=== PATIENT | female | born 1965 | race Caucasian/White ===

== ENCOUNTER 2016-09-07 13:29 | Emergency (ER) | payer SELFPAY ==
[2016-09-07 13:58] VITALS: BP 180/107
[2016-09-07] MEDS ORDERED: Lidocaine 2% Viscous Solution 15 ML Cup PO ONE (14:02)
[2016-09-07] MEDS ORDERED: Benzocaine 20% Topical Spray UD MUCMEM ONE (14:02)
--- NOTE | 2016-09-07 14:03 | EDM.PDOC ---
ED HPI GENERAL MEDICAL PROBLEM - General Chief Complaint: ENT Problem Stated Complaint: CHEEKS Time Seen by Provider: 09/07/16 13:54 - History of Present Illness INITIAL COMMENTS - FREE TEXT/NARRATIVE: HISTORY AND PHYSICAL: History of present illness: The patient is a 51-year-old female who presents with complaints of jaw swelling that started this morning after she woke up. The patient knew that she had a broken tooth in that location but he was not that swollen last evening when she went to bed. The patient has had some nausea due to the pain and swelling and has been trying to put ice on it. The patient does not have money to a dentist but she knows that she needs to see one. Is here for care and denies any chest pain shortness of breath abdominal pain or sore throat. Review of systems: As per history of present illness and below otherwise all systems reviewed and negative. Past medical history: As per history of present illness and as reviewed below otherwise noncontributory. Surgical history: As per history of present illness and as reviewed below otherwise noncontributory. Social history: No reported history of drug or alcohol abuse. Family history: As per history of present illness and as reviewed below otherwise noncontributory. Physical exam: General: Well-developed well-nourished female whose vital signs have been reviewed by me and who is nontoxic. She is visible facial swelling at the area of her left mandible is not crepitant or fluctuance HEENT: Atraumatic, normocephalic, pupils reactive, negative for conjunctival pallor or scleral icterus, mucous membranes moist, throat clear, neck supple, nontender, trachea midline. There are no teeth on the upper mouth and there are several dental caries seen on the lower teeth but there were only a few teeth at all. The tooth in question is apremolar which is fractured swollen dome at the surrounding without fluctuance and communication to the soft tissue swelling of the cheek. There is no cervical adenopathy or nuchal rigidity Lungs: Clear to auscultation, breath sounds equal bilaterally, chest nontender. Heart: S1S2, regular rate and rhythm no overt murmurs Abdomen: Soft, nondistended, nontender. NABS 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: Deferred. Rectal: Deferred. Extremities: Atraumatic, negative for cords or calf pain. Neurovascular unremarkable. Neuro: Awake, alert, oriented. Cranial nerves II through XII unremarkable. Cerebellum unremarkable. Motor and sensory unremarkable throughout. Exam nonfocal. Diagnostics: [] Therapeutics: Dental balls Impression: Dental abscess Definitive disposition and diagnosis as appropriate pending reevaluation and review of above. 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: Musculoskeletal History: Reports: None Neurological History: Reports: None Psychiatric History: Reports: None Endocrine/Metabolic History: Reports: None Hematologic History: Reports: None Immunologic History: Reports: None Oncologic (Cancer) History: Reports: None Dermatologic History: Reports: None - Infectious Disease History Infectious Disease History: Reports: Chicken pox, Rubella - Past Surgical History Head Surgeries/Procedures: Reports: None Cardiovascular Surgical History: Reports: None GI Surgical History: Reports: Appendectomy, Cholecystectomy Endocrine Surgical History: Reports: None Neurological Surgical History: Reports: None Musculoskeletal Surgical History: Reports: None Social & Family History - Family History Family Medical History: Noncontributory - Tobacco Use Smoking Status *Q: Current Every Day Smoker Years of Tobacco use: 20 Packs/Tins Daily: 1 - Caffeine Use Caffeine Use: Reports: Coffee, Soda - Recreational Drug Use Recreational Drug Use: No ED ROS GENERAL - Review of Systems Review Of Systems: ROS reveals no pertinent complaints other than HPI. ED EXAM, GENERAL - Physical Exam Exam: See Below (See dictation) Course - Vital Signs Last Recorded V/S: Last Vital Signs Temp 36.4 C 09/07/16 13:56 Pulse 84 09/07/16 13:56 Resp 16 09/07/16 13:56 BP 180/107 H 09/07/16 13:56 Pulse Ox 99 09/07/16 13:56 - Orders/Labs/Meds Orders: Active Orders 24 hr Category Date Time Status Benzocaine [Hurricaine One 20%] Med 09/07/16 14:02 Once 2 each MUCMEM ONETIME ONE Meds: Medications Discontinued Medications Generic Name Dose Route Start Last Admin Trade Name Jerry PRN Reason Stop Dose Admin Benzocaine 2 each 09/07/16 14:02 Hurricaine One 20% MUCMEM 09/07/16 14:03 ONETIME ONE Lidocaine HCl 15 ml 09/07/16 14:02 Xylocaine 2% Viscous PO 09/07/16 14:03 ONETIME ONE Departure - Departure Time of Disposition: 14:06 Disposition: Home, Self-Care 01 Condition: good, fair Clinical Impression: Dental abscess Forms: ED Department Discharge Additional Instructions: The following information is given to patients seen in the emergency department who are being discharged to home. This information is to outline your options for follow-up care. We provide all patients seen in our emergency department with a follow-up referral. The need for follow-up, as well as the timing and circumstances, are variable depending upon the specifics of your emergency department visit. If you don't have a primary care physician on staff, we will provide you with a referral. We always advise you to contact your personal physician following an emergency department visit to inform them of the circumstance of the visit and for follow-up with them and/or the need for any referrals to a consulting specialist. The emergency department will also refer you to a specialist when appropriate. This referral assures that you have the opportunity for followup care with a specialist. All of these measure are taken in an effort to provide you with optimal care, which includes your followup. Under all circumstances we always encourage you to contact your private physician who remains a resource for coordinating your care. When calling for followup care, please make the office aware that this follow-up is from your recent emergency room visit. If for any reason you are refused follow-up, please contact the [facility] emergency department at and ask to speak to the emergency department charge nurse. [facility] Primary care- Internal Medicine and Family [address] [address] These use dental balls as needed and shown by the ER staff. Take all medications as prescribed and continue with the ice on the swelling of her face. Please connect with local dentist for definitive care and treatment and also followup with primary care. Return to ER as needed and as discussed - My Orders Last 24 Hours: My Active Orders 09/07/16 14:02 Benzocaine [Hurricaine One 20%] 2 each MUCMEM ONETIME ONE - Assessment/Plan Last 24 Hours: My Active Orders 09/07/16 14:02 Benzocaine [Hurricaine One 20%] 2 each MUCMEM ONETIME ONE
== END 2016-09-07 14:19 | disposition home or self-care (01) ==
LOC: MW.ED 13:29
DX: K04.7 Periapical abscess without sinus (principal); F17.210 Nicotine dependence, cigarettes, uncomplicated; Z88.5 Allergy status to narcotic agent; Z79.899 Other long term (current) drug therapy; Z90.49 Acquired absence of other specified parts of digestive tract; Z90.89 Acquired absence of other organs
CPT/HCPCS: 99282; A9270; 99283

== ENCOUNTER 2016-10-01 15:10 | Emergency (ER) | payer SELFPAY ==
[2016-10-01] MEDS ORDERED: Sodium Chloride 0.9% 10 ML Syringe FLUSH PRN (15:20)
[2016-10-01] MEDS ORDERED: Sodium Chloride 0.9% 2.5 ML Syringe FLUSH PRN (15:20)
[2016-10-01] MEDS ORDERED: Sodium Chloride 0.9% 1,000 ML IV ONE (15:21)
[2016-10-01] MEDS ORDERED: Adenosine 6 MG/2 ML SDV ONE (15:25)
--- NOTE | 2016-10-01 15:35 | EDM.PDOC ---
ED HISTORY OF PRESENT ILLNESS - General Chief Complaint: Cardiovascular Problem Stated Complaint: RACING HEART Time Seen by Provider: 10/01/16 15:17 - History of Present Illness INITIAL COMMENTS - FREE TEXT/NARRATIVE: HISTORY AND PHYSICAL: History of present illness: The patient is a 51-year-old female with a known history of SVT throughout her life who takes propranolol and has had multiple episodes of SVT which she usually can get herself out of by driving or in a car getting nauseated from motion sickness and vomiting. She has had 4 prior times when she had to come to the ER and get converted with adenosine the last being here August 23. At that time she was drinking a lot of Diet Coke and tea and she has cut way back according to her history today. The patient states she was at [facility] and the lights there made her go into this rhythm and she has been driving around or sitting trying to convert herself for the last 2 hours. Patient arrived here and was writhing around on the bed diaphoretic and nauseated. The patient did state that she had some dry heaves in the car but she was unable to convert herself with that. The patient states she does not have a clinic physician and has not seen a advertising analyst for this problem because she doesn't have the money or insurance. Patient states that she is having chest discomfort due to the high heart rate in the nausea as well as shortness of breath all of which are her typical symptoms. She had no preceding symptoms of fever chills vomiting diarrhea abdominal pain chest pain or shortness of breath prior to going to [facility] Review of systems: As per history of present illness and below otherwise all systems reviewed and negative. Past medical history: As per history of present illness and as reviewed below otherwise noncontributory. Surgical history: As per history of present illness and as reviewed below otherwise noncontributory. Social history: No reported history of drug or alcohol abuse. Family history: As per history of present illness and as reviewed below otherwise noncontributory. Physical exam: General: Well-developed overweight female who is diaphoretic and writhing about the bed eating supper he clearly. I initially saw her in the triage office and then quickly moved her to the ER Main room HEENT: Atraumatic, normocephalic, pupils reactive, negative for conjunctival pallor or scleral icterus, mucous membranes moist, throat clear, neck supple, nontender, trachea midline. Lungs: Clear to auscultation, breath sounds equal bilaterally, chest nontender. Heart: S1S2, very rapid rhythm consistent with her her crit on the monitor and EKG, difficult to assess for murmurs due to the rapid rate Abdomen: Soft, nondistended, nontender. Negative for masses or hepatosplenomegaly. Negative for costovertebral tenderness. Skin: Slightly pale moist no evidence of any rashes or lesions 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: Deferred. Rectal: Deferred. Extremities: Atraumatic, negative for cords or calf pain. Neurovascular unremarkable. No pedal edema or leg asymmetry Neuro: Awake, alert, oriented. Cranial nerves II through XII unremarkable. Cerebellum unremarkable. Motor and sensory unremarkable throughout. Exam nonfocal. Diagnostics: EKG x2, CBC CMP troponin Patient had a TSH performed on August 23 of this year that was negative and also her LFTs were slightly elevated then. Therapeutics: IV O2 monitor IV fluids and adenosine 12 mg The patient is very specific that adenosine 6 mg does not work so she is requesting 12 mg. I administered that with a delayed pause and conversion without complication. Patient tolerated this well and her color immediately improved and she is resting comfortably. We will repeat an EKG and monitor her blood work. I strongly advised her that she does need to get primary care and followup with cardiology in order to adjust her medications and/or discuss ablation. 1620: Patient is continuing to maintain her normal rate and other vitals are also stable. Patient is aware of all testing results including the mildly elevated glucose and liver function tests which were similarly elevated on her last visit here in August. I advised her that she does need to follow up with primary care to address these issues and cardiology to address her SVT and we will also give her resources for social service assistant to help her connect to get health care coverage. Patient states understanding but looks somewhat annoyed with my conversation and distracted. Again advised her about caffeine use and reasons to return to the ED Impression: SVT with history of same stable Definitive disposition and diagnosis as appropriate pending reevaluation and review of above. 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: Musculoskeletal History: Reports: None Neurological History: Reports: None Psychiatric History: Reports: None Endocrine/Metabolic History: Reports: None Hematologic History: Reports: None Immunologic History: Reports: None Oncologic (Cancer) History: Reports: None Dermatologic History: Reports: None - Infectious Disease History Infectious Disease History: Reports: Chicken pox, Rubella - Past Surgical History Head Surgeries/Procedures: Reports: None Cardiovascular Surgical History: Reports: None GI Surgical History: Reports: Appendectomy, Cholecystectomy Endocrine Surgical History: Reports: None Neurological Surgical History: Reports: None Musculoskeletal Surgical History: Reports: None Social & Family History - Family History Family Medical History: Noncontributory - Tobacco Use Smoking Status *Q: Current Every Day Smoker Years of Tobacco use: 20 Packs/Tins Daily: 1 - Caffeine Use Caffeine Use: Reports: Coffee, Soda - Recreational Drug Use Recreational Drug Use: No ED ROS GENERAL - Review of Systems Review Of Systems: ROS reveals no pertinent complaints other than HPI. ED EXAM, GENERAL - Physical Exam Exam: See Below (see dictation) Course - Vital Signs Last Recorded V/S: Last Vital Signs Temp 36.7 C 10/01/16 16:16 Pulse 80 10/01/16 16:16 Resp 16 10/01/16 16:16 BP 120/70 10/01/16 16:16 Pulse Ox 99 10/01/16 16:16 - Orders/Labs/Meds Orders: Active Orders 24 hr Category Date Time Status Cardiac Monitoring [RC] . DIRECTED Care 10/01/16 15:20 Active EKG Documentation Completion [RC] STAT Care 10/01/16 15:20 Active EKG Documentation Completion [RC] STAT Care 10/01/16 15:30 Active Oxygen Therapy, ED [RC] ASDIRECTED Care 10/01/16 15:20 Active Pulse Oximetry [RC] ASDIRECTED Care 10/01/16 15:20 Active Sodium Chloride 0.9% [Normal Saline] 1,000 ml Med 10/01/16 15:21 Active IV STAT Sodium Chloride 0.9% [Saline Flush] Med 10/01/16 15:20 Active 10 ml FLUSH ASDIRECTED PRN Sodium Chloride 0.9% [Saline Flush] Med 10/01/16 15:20 Active 2.5 ml FLUSH ASDIRECTED PRN Saline Lock Insert [OM.PC] Stat Oth 10/01/16 15:20 Ordered Medication Orders Sodium Chloride (Normal Saline) 1,000 mls @ 999 mls/hr IV STAT ONE Stop: 10/01/16 16:21 Last Admin: 10/01/16 15:33 Dose: 999 mls/hr Sodium Chloride (Saline Flush) 10 ml FLUSH ASDIRECTED PRN PRN Reason: Keep Vein Open Last Admin: 10/01/16 15:32 Dose: 10 ml Sodium Chloride (Saline Flush) 2.5 ml FLUSH ASDIRECTED PRN PRN Reason: Keep Vein Open Last Admin: 10/01/16 15:32 Dose: 2.5 ml Labs: Laboratory Tests 10/01/16 10/01/16 10/01/16 Range/Units 15:30 15:30 15:30 WBC 10.91 (4.0-11.0) K/uL RBC 4.82 (4.30-5.90) M/uL Hgb 14.4 (12.0-16.0) g/dL Hct 42.1 (36.0-46.0) % MCV 87.3 (80.0-98.0) fL MCH 29.9 (27.0-32.0) pg MCHC 34.2 (31.0-37.0) g/dL RDW Std Deviation 45.5 (28.0-62.0) fl RDW Coeff of Itz 14 (11.0-15.0) % Plt Count 376 (150-400) K/uL MPV 10.30 (7.40-12.00) fL Neut % (Auto) 59.0 (48.0-80.0) % Lymph % (Auto) 31.9 (16.0-40.0) % [place] % (Auto) 5.8 (0.0-15.0) % Eos % (Auto) 2.8 (0.0-7.0) % Baso % (Auto) 0.5 (0.0-1.5) % Neut # (Auto) 6.4 H (1.4-5.7) K/uL Lymph # (Auto) 3.5 H (0.6-2.4) K/uL [place] # (Auto) 0.6 (0.0-0.8) K/uL Eos # (Auto) 0.3 (0.0-0.7) K/uL Baso # (Auto) 0.1 (0.0-0.1) K/uL Nucleated RBC % 0.0 /100WBC Nucleated RBCs # 0 K/uL Sodium 138 (136-146) mmol/L Potassium 4.2 (3.5-5.1) mmol/L Chloride 108 (98-110) mmol/L Carbon Dioxide 15 L (21-31) mmol/L BUN 22 (6.0-23.0) mg/dL Creatinine 1.0 (0.6-1.5) mg/dL Est Cr Clr Drug Dosing 63.83 mL/min Estimated GFR (MDRD) 58.2 ml/min Glucose 210 H (60-110) mg/dL Calcium 9.1 (8.8-10.8) mg/dL Total Bilirubin 0.5 (0.1-1.5) mg/dL AST 43 H (5-40) IU/L ALT 83 H (8-54) IU/L Alkaline Phosphatase 202 H (40-150) Troponin I < 0.10 (0.0-0.29) NG/ML Total Protein 7.1 (6.0-8.0) g/dL Albumin 3.9 (3.5-5.0) g/dL Globulin 3.2 (2.0-3.5) g/dL Albumin/Globulin Ratio 1.2 L (1.3-2.8) Meds: Medications Generic Name Dose Route Start Last Admin Trade Name Freq PRN Reason Stop Dose Admin Sodium Chloride 1,000 mls @ 999 mls/hr 10/01/16 15:21 10/01/16 15:33 Normal Saline IV 10/01/16 16:21 999 mls/hr STAT ONE Administration Sodium Chloride 10 ml 10/01/16 15:20 10/01/16 15:32 Saline Flush FLUSH 10 ml ASDIRECTED PRN Administration Keep Vein Open Sodium Chloride 2.5 ml 10/01/16 15:20 10/01/16 15:32 Saline Flush FLUSH 2.5 ml ASDIRECTED PRN Administration Keep Vein Open Discontinued Medications Generic Name Dose Route Start Last Admin Trade Name Frealfonzo PRN Reason Stop Dose Admin Adenosine 12 mg 10/01/16 15:20 10/01/16 15:33 Adenoscan IVPUSH 10/01/16 15:21 Not Given ONETIME ONE Adenosine Confirm 10/01/16 15:25 10/01/16 15:31 Adenocard Administered 10/01/16 15:26 12 mg Dose Administration 12 mg .ROUTE .STK-MED ONE Departure - Departure Time of Disposition: 16:23 Disposition: Home, Self-Care 01 Condition: good Clinical Impression: Paroxysmal supraventricular tachycardia Instructions: Paroxysmal Supraventricular Tachycardia, Cgup-hl-Domy Referrals: PCP,None [Primary Care Provider] - Forms: ED Department Discharge Additional Instructions: The following information is given to patients seen in the emergency department who are being discharged to home. This information is to outline your options for follow-up care. We provide all patients seen in our emergency department with a follow-up referral. The need for follow-up, as well as the timing and circumstances, are variable depending upon the specifics of your emergency department visit. If you don't have a primary care physician on staff, we will provide you with a referral. We always advise you to contact your personal physician following an emergency department visit to inform them of the circumstance of the visit and for follow-up with them and/or the need for any referrals to a consulting specialist. The emergency department will also refer you to a specialist when appropriate. This referral assures that you have the opportunity for followup care with a specialist. All of these measure are taken in an effort to provide you with optimal care, which includes your followup. Under all circumstances we always encourage you to contact your private physician who remains a resource for coordinating your care. When calling for followup care, please make the office aware that this follow-up is from your recent emergency room visit. If for any reason you are refused follow-up, please contact the [facility] emergency department at and ask to speak to the emergency department charge nurse. [facility] Primary care- [place] [address] Please contact our clinic on Monday to get an appointment sometime this week for further evaluation and care of your elevated blood glucose level and liver function tests as we discussed. Please avoid sweets and sugar he foods and drinks, avoid alcohol and Tylenol products and avoid caffeine. Please return to ER as needed and as discussed. Was to connect with primary care and they can then refer you to her advertising analyst for further care and management of your SVT - My Orders Last 24 Hours: My Active Orders 10/01/16 15:20 Cardiac Monitoring [RC] . DIRECTED EKG Documentation Completion [RC] STAT Oxygen Therapy, ED [RC] ASDIRECTED Pulse Oximetry [RC] ASDIRECTED Sodium Chloride 0.9% [Saline Flush] 10 ml FLUSH ASDIRECTED PRN Sodium Chloride 0.9% [Saline Flush] 2.5 ml FLUSH ASDIRECTED PRN Saline Lock Insert [OM.PC] Stat 10/01/16 15:21 Sodium Chloride 0.9% [Normal Saline] 1,000 ml IV STAT 10/01/16 15:30 EKG Documentation Completion [RC] STAT - Assessment/Plan Last 24 Hours: My Active Orders 10/01/16 15:20 Cardiac Monitoring [RC] . DIRECTED EKG Documentation Completion [RC] STAT Oxygen Therapy, ED [RC] ASDIRECTED Pulse Oximetry [RC] ASDIRECTED Sodium Chloride 0.9% [Saline Flush] 10 ml FLUSH ASDIRECTED PRN Sodium Chloride 0.9% [Saline Flush] 2.5 ml FLUSH ASDIRECTED PRN Saline Lock Insert [OM.PC] Stat 10/01/16 15:21 Sodium Chloride 0.9% [Normal Saline] 1,000 ml IV STAT 10/01/16 15:30 EKG Documentation Completion [RC] STAT
[2016-10-01 16:32] VITALS: BP 121/70
== END 2016-10-01 16:33 | disposition home or self-care (01) ==
LOC: MW.ED 15:10
DX: I47.1 Supraventricular tachycardia (principal); F17.210 Nicotine dependence, cigarettes, uncomplicated; Z90.49 Acquired absence of other specified parts of digestive tract; Z79.899 Other long term (current) drug therapy; Z88.5 Allergy status to narcotic agent
CPT/HCPCS: 36415; 80053; 84484; 85025; 93005; 96374; 99285; J0153; J7040; 99284

== ENCOUNTER 2016-10-22 18:37 | Emergency (ER) | payer SELFPAY ==
[2016-10-22] MEDS ORDERED: Sodium Chloride 0.9% 2.5 ML Syringe FLUSH PRN (19:04)
[2016-10-22] MEDS ORDERED: Sodium Chloride 0.9% 10 ML Syringe FLUSH PRN (19:04)
--- NOTE | 2016-10-22 19:07 | EDM.PDOC ---
ED HISTORY OF PRESENT ILLNESS - General Chief Complaint: Cardiovascular Problem Stated Complaint: CHEST PAIN Time Seen by Provider: 10/22/16 19:03 - History of Present Illness INITIAL COMMENTS - FREE TEXT/NARRATIVE: HISTORY AND PHYSICAL: History of present illness: The patient is a 51-year-old female with a known history of SVT who is presented here multiple times requiring conversion and states that she went to the rhythm approximately one hour prior to coming to the ER. On arrival here for her it was in the 200s typical for her and during the IV start and evaluation she had an episode of vomiting and self converted she's currently in sinus rhythm with a rate of 90s. Patient states she has a followup on Monday with her primary care since that she can't referral to cardiology and states that she smokes cigarettes but no drugs. Patient currently denies any chest pain shortness of breath but has had a cough with some phlegm. Patient denies any fevers or chills vomiting or diarrhea but says that she has had intermittent nausea and felt like she wanted to vomit over the last 24 hours. Patient has been worked up multiple times in the past and this is a typical presentation for her. Review of systems: As per history of present illness and below otherwise all systems reviewed and negative. Past medical history: As per history of present illness and as reviewed below otherwise noncontributory. Surgical history: As per history of present illness and as reviewed below otherwise noncontributory. Social history: No reported history of drug or alcohol abuse. Family history: As per history of present illness and as reviewed below otherwise noncontributory. Physical exam: General: Well-developed overweight female who is nontoxic speaking clearly and easily in the ED and is in no distress on my evaluation. HEENT: Atraumatic, normocephalic, pupils reactive, negative for conjunctival pallor or scleral icterus, mucous membranes moist, throat clear, neck supple, nontender, trachea midline. Lungs: Clear to auscultation her work or breathing or sensory muscle use wheezing or stridor, breath sounds equal bilaterally, chest nontender. Heart: S1S2, regular, negative for clicks, rubs, or JVD. Abdomen: Soft, nondistended, nontender. Negative for masses or hepatosplenomegaly. Negative for costovertebral tenderness. Pelvis: Stable nontender. 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: Deferred. Rectal: Deferred. Extremities: Atraumatic, negative for cords or calf pain. Neurovascular unremarkable. No pedal edema Neuro: Awake, alert, oriented. Cranial nerves II through XII unremarkable. Cerebellum unremarkable. Motor and sensory unremarkable throughout. Exam nonfocal. Diagnostics: CBC CMP EKG chest x-ray troponin Therapeutics: IV O2 monitor Zofran when necessary IV fluids Impression: Recurrent SVT with history of same self converted Definitive disposition and diagnosis as appropriate pending reevaluation and review of above. 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: Musculoskeletal History: Reports: None Neurological History: Reports: None Psychiatric History: Reports: None Endocrine/Metabolic History: Reports: None Hematologic History: Reports: None Immunologic History: Reports: None Oncologic (Cancer) History: Reports: None Dermatologic History: Reports: None - Infectious Disease History Infectious Disease History: Reports: Chicken pox, Rubella - Past Surgical History Head Surgeries/Procedures: Reports: None Cardiovascular Surgical History: Reports: None GI Surgical History: Reports: Appendectomy, Cholecystectomy Endocrine Surgical History: Reports: None Neurological Surgical History: Reports: None Musculoskeletal Surgical History: Reports: None Social & Family History - Family History Family Medical History: Noncontributory - Tobacco Use Smoking Status *Q: Current Every Day Smoker Years of Tobacco use: 15 Packs/Tins Daily: 1 Second Hand Smoke Exposure: No - Caffeine Use Caffeine Use: Reports: Coffee, Soda - Recreational Drug Use Recreational Drug Use: No ED ROS GENERAL - Review of Systems Review Of Systems: ROS reveals no pertinent complaints other than HPI. ED EXAM, GENERAL - Physical Exam Exam: See Below (See dictation) Course - Vital Signs Last Recorded V/S: Last Vital Signs Temp 36.3 C 10/22/16 18:37 Pulse 208 H 10/22/16 18:37 Resp 18 10/22/16 18:37 BP 138/108 H 10/22/16 18:37 Pulse Ox 97 10/22/16 19:04 - Orders/Labs/Meds Orders: Active Orders 24 hr Category Date Time Status Cardiac Monitoring [RC] . DIRECTED Care 10/22/16 19:04 Active EKG Documentation Completion [RC] STAT Care 10/22/16 19:04 Active Oxygen Therapy, ED [RC] ASDIRECTED Care 10/22/16 19:04 Active Pulse Oximetry [RC] ASDIRECTED Care 10/22/16 19:04 Active Chest 1V Frontal [CR] Stat Exams 10/22/16 19:04 Taken Sodium Chloride 0.9% [Normal Saline] 1,000 ml Med 10/22/16 19:53 Active IV STAT Sodium Chloride 0.9% [Saline Flush] Med 10/22/16 19:04 Active 10 ml FLUSH ASDIRECTED PRN Sodium Chloride 0.9% [Saline Flush] Med 10/22/16 19:04 Active 2.5 ml FLUSH ASDIRECTED PRN Saline Lock Insert [OM.PC] Stat Oth 10/22/16 19:04 Ordered Medication Orders Sodium Chloride (Normal Saline) 1,000 mls @ 999 mls/hr IV STAT ONE Stop: 10/22/16 20:53 Last Admin: 10/22/16 19:56 Dose: 999 mls/hr Sodium Chloride (Saline Flush) 10 ml FLUSH ASDIRECTED PRN PRN Reason: Keep Vein Open Sodium Chloride (Saline Flush) 2.5 ml FLUSH ASDIRECTED PRN PRN Reason: Keep Vein Open Labs: Laboratory Tests 10/22/16 10/22/16 10/22/16 Range/Units 19:15 19:15 19:15 WBC 11.13 H (4.0-11.0) K/uL RBC 4.95 (4.30-5.90) M/uL Hgb 15.0 (12.0-16.0) g/dL Hct 43.7 (36.0-46.0) % MCV 88.3 (80.0-98.0) fL MCH 30.3 (27.0-32.0) pg MCHC 34.3 (31.0-37.0) g/dL RDW Std Deviation 45.5 (28.0-62.0) fl RDW Coeff of Itz 14 (11.0-15.0) % Plt Count 308 (150-400) K/uL MPV 10.40 (7.40-12.00) fL Neut % (Auto) 84.6 H (48.0-80.0) % Lymph % (Auto) 11.1 L (16.0-40.0) % [place] % (Auto) 3.8 (0.0-15.0) % Eos % (Auto) 0.3 (0.0-7.0) % Baso % (Auto) 0.2 (0.0-1.5) % Neut # (Auto) 9.4 H (1.4-5.7) K/uL Lymph # (Auto) 1.2 (0.6-2.4) K/uL [place] # (Auto) 0.4 (0.0-0.8) K/uL Eos # (Auto) 0.0 (0.0-0.7) K/uL Baso # (Auto) 0.0 (0.0-0.1) K/uL Nucleated RBC % 0.0 /100WBC Nucleated RBCs # 0 K/uL Sodium 138 (136-146) mmol/L Potassium 4.4 (3.5-5.1) mmol/L Chloride 106 (98-110) mmol/L Carbon Dioxide 21 (21-31) mmol/L BUN 25 H (6.0-23.0) mg/dL Creatinine 1.0 (0.6-1.5) mg/dL Est Cr Clr Drug Dosing 63.83 mL/min Estimated GFR (MDRD) 58.2 ml/min Glucose 176 H (60-110) mg/dL Calcium 9.7 (8.8-10.8) mg/dL Total Bilirubin 0.8 (0.1-1.5) mg/dL AST 37 (5-40) IU/L ALT 49 (8-54) IU/L Alkaline Phosphatase 140 (40-150) Troponin I < 0.10 (0.0-0.29) NG/ML Total Protein 7.4 (6.0-8.0) g/dL Albumin 4.1 (3.5-5.0) g/dL Globulin 3.3 (2.0-3.5) g/dL Albumin/Globulin Ratio 1.2 L (1.3-2.8) Meds: Medications Generic Name Dose Route Start Last Admin Trade Name Freq PRN Reason Stop Dose Admin Sodium Chloride 1,000 mls @ 999 mls/hr 10/22/16 19:53 10/22/16 19:56 Normal Saline IV 10/22/16 20:53 999 mls/hr STAT ONE Administration Sodium Chloride 10 ml 10/22/16 19:04 Saline Flush FLUSH ASDIRECTED PRN Keep Vein Open Sodium Chloride 2.5 ml 10/22/16 19:04 Saline Flush FLUSH ASDIRECTED PRN Keep Vein Open Departure - Departure Time of Disposition: 20:00 Disposition: Home, Self-Care 01 Condition: good Clinical Impression: PSVT (paroxysmal supraventricular tachycardia) Forms: ED Department Discharge Additional Instructions: The following information is given to patients seen in the emergency department who are being discharged to home. This information is to outline your options for follow-up care. We provide all patients seen in our emergency department with a follow-up referral. The need for follow-up, as well as the timing and circumstances, are variable depending upon the specifics of your emergency department visit. If you don't have a primary care physician on staff, we will provide you with a referral. We always advise you to contact your personal physician following an emergency department visit to inform them of the circumstance of the visit and for follow-up with them and/or the need for any referrals to a consulting specialist. The emergency department will also refer you to a specialist when appropriate. This referral assures that you have the opportunity for followup care with a specialist. All of these measure are taken in an effort to provide you with optimal care, which includes your followup. Under all circumstances we always encourage you to contact your private physician who remains a resource for coordinating your care. When calling for followup care, please make the office aware that this follow-up is from your recent emergency room visit. If for any reason you are refused follow-up, please contact the [facility] emergency department at and ask to speak to the emergency department charge nurse. [facility] Primary care- [place] [address] Please push hydration and avoid caffeinated products. Please keep your appointment on with primary care to further evaluate this recurrent problem and return here as needed and as discussed. - My Orders Last 24 Hours: My Active Orders 10/22/16 19:04 Cardiac Monitoring [RC] . DIRECTED EKG Documentation Completion [RC] STAT Oxygen Therapy, ED [RC] ASDIRECTED Pulse Oximetry [RC] ASDIRECTED Chest 1V Frontal [CR] Stat Sodium Chloride 0.9% [Saline Flush] 10 ml FLUSH ASDIRECTED PRN Sodium Chloride 0.9% [Saline Flush] 2.5 ml FLUSH ASDIRECTED PRN Saline Lock Insert [OM.PC] Stat 10/22/16 19:53 Sodium Chloride 0.9% [Normal Saline] 1,000 ml IV STAT - Assessment/Plan Last 24 Hours: My Active Orders 10/22/16 19:04 Cardiac Monitoring [RC] . DIRECTED EKG Documentation Completion [RC] STAT Oxygen Therapy, ED [RC] ASDIRECTED Pulse Oximetry [RC] ASDIRECTED Chest 1V Frontal [CR] Stat Sodium Chloride 0.9% [Saline Flush] 10 ml FLUSH ASDIRECTED PRN Sodium Chloride 0.9% [Saline Flush] 2.5 ml FLUSH ASDIRECTED PRN Saline Lock Insert [OM.PC] Stat 10/22/16 19:53 Sodium Chloride 0.9% [Normal Saline] 1,000 ml IV STAT
[2016-10-22] MEDS ORDERED: Sodium Chloride 0.9% 1,000 ML IV ONE (19:53)
[2016-10-23 02:56] VITALS: BP 145/86
--- NOTE | 2016-10-24 10:50 | CR ---
EXAM DATE: 10/22/16 PATIENT'S AGE: 51 Patient: MIKE COMBS Facility: [place], [place] Site . Site : 1965 Study: XRay Chest [id number] 7:41:10 PM Ordering Physician: Jess Bland Final Report: CHEST 1 VIEW AP INDICATION: Short of breath. COMPARISON: 01/07/2016. IMPRESSION: Stable heart size and vascular pattern. Lungs are clear of new focal opacities. No pneumothorax or pleural abnormality. Dictated by Luis Antonio Fox MD @ Oct 22 2016 7:44PM (Electronic Signature) Report Signed by Proxy and Original Signed Document filed in the Medical Record. MTDD
== END 2016-10-22 21:18 | disposition home or self-care (01) ==
LOC: MW.ED 18:37
DX: I47.1 Supraventricular tachycardia (principal); F17.210 Nicotine dependence, cigarettes, uncomplicated; Z90.49 Acquired absence of other specified parts of digestive tract; Z88.5 Allergy status to narcotic agent; Z79.899 Other long term (current) drug therapy
CPT/HCPCS: 36415; 71010; 80053; 84484; 85025; 93005; 96360; 99285; J7040; 99284

== ENCOUNTER 2016-11-01 21:55 | Emergency (ER) | payer SELFPAY ==
--- NOTE | 2016-11-01 22:32 | EDM.PDOC ---
ED HISTORY OF PRESENT ILLNESS - General Chief Complaint: Cardiovascular Problem Stated Complaint: HEART PALPITATIONS Time Seen by Provider: 11/01/16 22:31 Source of Information: Reports: Patient - History of Present Illness INITIAL COMMENTS - FREE TEXT/NARRATIVE: About 1-1/2 hours ago she developed symptoms of palpitations. She states it is her "SVT". She states she has a little chest soreness. No vomiting. No fever. No abdominal pain. She's had a cough for over a week productive of sputum. She smokes cigarettes. She is not using the [facility] drug periods she does not use our call. She does not use any weight loss or cold medicines. She states she takes medicine to prevent SVT. She states that she has had recurrent SVT since childhood. 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: Musculoskeletal History: Reports: None Neurological History: Reports: None Psychiatric History: Reports: None Endocrine/Metabolic History: Reports: None Hematologic History: Reports: None Immunologic History: Reports: None Oncologic (Cancer) History: Reports: None Dermatologic History: Reports: None - Infectious Disease History Infectious Disease History: Reports: Chicken pox, Rubella - Past Surgical History Head Surgeries/Procedures: Reports: None Cardiovascular Surgical History: Reports: None GI Surgical History: Reports: Appendectomy, Cholecystectomy Endocrine Surgical History: Reports: None Neurological Surgical History: Reports: None Musculoskeletal Surgical History: Reports: None Social & Family History - Family History Family Medical History: Noncontributory - Tobacco Use Smoking Status *Q: Current Every Day Smoker Years of Tobacco use: 15 Packs/Tins Daily: 1 Second Hand Smoke Exposure: No - Caffeine Use Caffeine Use: Reports: Coffee, Soda - Recreational Drug Use Recreational Drug Use: No ED ROS GENERAL - Review of Systems Review Of Systems: ROS reveals no pertinent complaints other than HPI. ED EXAM, GENERAL - Physical Exam Exam: See Below Free Text/Narrative:: She is alert. She is cooperative and pleasant. No focal motor deficit noted lungs clear to auscultation heart sounds distant and rapid heart monitor shows narrow complex tachycardia rate about 200. Abdomen is nontender. 12-lead electrocardiogram shows narrow complex tachycardia with a heart rate just over 200 she was treated with Entocort 6 mg IV. She subsequently converted to sinus rhythm. He feels much better after conversion Course - Vital Signs Last Recorded V/S: Last Vital Signs Temp 96.7 F 11/01/16 22:00 Pulse 214 H 11/01/16 22:00 Resp 19 11/01/16 22:00 BP 139/74 11/01/16 22:00 Pulse Ox 95 11/01/16 22:00 - Orders/Labs/Meds Orders: Active Orders 24 hr Category Date Time Status EKG Documentation Completion [RC] STAT Care 11/01/16 22:29 Active EKG Documentation Completion [RC] STAT Care 11/01/16 22:38 Active EKG Documentation Completion [RC] STAT Care 11/01/16 22:44 Active Metoprolol Succinate [Toprol XL] Med 11/01/16 23:34 Once 25 mg PO ONETIME ONE Labs: Laboratory Tests 11/01/16 11/01/16 11/01/16 Range/Units 22:25 22:25 22:25 WBC 10.60 (4.0-11.0) K/uL RBC 5.02 (4.30-5.90) M/uL Hgb 15.2 (12.0-16.0) g/dL Hct 44.2 (36.0-46.0) % MCV 88.0 (80.0-98.0) fL MCH 30.3 (27.0-32.0) pg MCHC 34.4 (31.0-37.0) g/dL RDW Std Deviation 44.6 (28.0-62.0) fl RDW Coeff of Itz 14 (11.0-15.0) % Plt Count 372 (150-400) K/uL MPV 10.20 (7.40-12.00) fL Neut % (Auto) 58.9 (48.0-80.0) % Lymph % (Auto) 30.5 (16.0-40.0) % Gem % (Auto) 6.0 (0.0-15.0) % Eos % (Auto) 4.1 (0.0-7.0) % Baso % (Auto) 0.5 (0.0-1.5) % Neut # (Auto) 6.3 H (1.4-5.7) K/uL Lymph # (Auto) 3.2 H (0.6-2.4) K/uL Gem # (Auto) 0.6 (0.0-0.8) K/uL Eos # (Auto) 0.4 (0.0-0.7) K/uL Baso # (Auto) 0.1 (0.0-0.1) K/uL Nucleated RBC % 0.0 /100WBC Nucleated RBCs # 0 K/uL Sodium 141 (136-146) mmol/L Potassium 4.0 (3.5-5.1) mmol/L Chloride 112 H (98-110) mmol/L Carbon Dioxide 18 L (21-31) mmol/L BUN 14 (6.0-23.0) mg/dL Creatinine 0.8 (0.6-1.5) mg/dL Est Cr Clr Drug Dosing 82.98 mL/min Estimated GFR (MDRD) > 60.0 ml/min Glucose 163 H (60-110) mg/dL Calcium 8.8 (8.8-10.8) mg/dL Total Bilirubin 0.3 (0.1-1.5) mg/dL AST 52 H (5-40) IU/L ALT 126 H (8-54) IU/L Alkaline Phosphatase 186 H (40-150) Troponin I < 0.10 (0.0-0.29) NG/ML Total Protein 7.2 (6.0-8.0) g/dL Albumin 3.8 (3.5-5.0) g/dL Globulin 3.4 (2.0-3.5) g/dL Albumin/Globulin Ratio 1.1 L (1.3-2.8) Free T4 0.83 (0.7-1.48) ng/dL TSH 3rd Generation 4.74 (0.47-5.0) uIU/mL Meds: Medications Discontinued Medications Generic Name Dose Route Start Last Admin Trade Name Freq PRN Reason Stop Dose Admin Adenosine Confirm 11/01/16 22:19 11/01/16 22:41 Adenocard Administered 11/01/16 22:20 6 mg Dose Administration 18 mg .ROUTE .STK-MED ONE Adenosine 6 mg 11/01/16 22:34 11/01/16 22:25 Adenoscan IVPUSH 11/01/16 22:35 6 mg ONETIME ONE Administration - Re-Assessments/Exams Free Text/Narrative Re-Assessment/Exam: 11/01/16 23:35 She went to sinusrhythm after adenocard 6 mg IV. As she only takes metoprolol 25 mg daily, will increase to 25 mg po bid Alessandro Colunga MD Departure - Departure Time of Disposition: 23:37 Disposition: Home, Self-Care 01 Clinical Impression: PSVT (paroxysmal supraventricular tachycardia) Forms: ED Department Discharge Additional Instructions: follow up with your physician on increase your metoprolol to 25 mg two times per day be sure to discuss her elevated liver blood tests with her doctor at follow up . - My Orders Last 24 Hours: My Active Orders 11/01/16 22:29 EKG Documentation Completion [RC] STAT 11/01/16 22:38 EKG Documentation Completion [RC] STAT 11/01/16 22:44 EKG Documentation Completion [RC] STAT 11/01/16 23:34 Metoprolol Succinate [Toprol XL] 25 mg PO ONETIME ONE - Assessment/Plan Last 24 Hours: My Active Orders 11/01/16 22:29 EKG Documentation Completion [RC] STAT 11/01/16 22:38 EKG Documentation Completion [RC] STAT 11/01/16 22:44 EKG Documentation Completion [RC] STAT 11/01/16 23:34 Metoprolol Succinate [Toprol XL] 25 mg PO ONETIME ONE
[2016-11-01] MEDS: Adenosine 6 MG/2 ML SDV ONE ×2 (22:40→22:41)
[2016-11-01 23:03] LABS: CHLORIDE,CL 112 mmol/L (98-110); SODIUM,NA 141 mmol/L (136-146)
[2016-11-01] MEDS ORDERED: Metoprolol Succinate 25 MG Tab.ER PO ONE (23:34)
[2016-11-01 23:52] VITALS: BP 122/75
== END 2016-11-01 23:51 | disposition home or self-care (01) ==
LOC: MW.ED 21:55
DX: I47.1 Supraventricular tachycardia (principal); F17.210 Nicotine dependence, cigarettes, uncomplicated; Z90.49 Acquired absence of other specified parts of digestive tract; Z79.899 Other long term (current) drug therapy; Z88.5 Allergy status to narcotic agent
CPT/HCPCS: 80053; 84439; 84443; 84484; 85025; 96374; 99285; A9270; J0153; 93005; 99284

== ENCOUNTER 2016-11-15 19:09 | Emergency (ER) | payer SELFPAY ==
[2016-11-15] MEDS ORDERED: Adenosine 6 MG/2 ML SDV ONE ×2 (19:15→19:19)
[2016-11-15] MEDS ORDERED: Sodium Chloride 0.9% 2.5 ML Syringe FLUSH PRN (19:19)
[2016-11-15] MEDS ORDERED: Sodium Chloride 0.9% 10 ML Syringe FLUSH PRN (19:19)
--- NOTE | 2016-11-15 19:20 | EDM.PDOC ---
ED HPI GENERAL MEDICAL PROBLEM - General Stated Complaint: CHEST PAIN Time Seen by Provider: 11/15/16 19:16 - History of Present Illness INITIAL COMMENTS - FREE TEXT/NARRATIVE: HISTORY AND PHYSICAL: History of present illness: The patient is a 51-year-old female with a long-standing history of SVT was been seen here multiple times in the ED but has not been able to followup with cardiology and represents with the same symptoms. Patient has been seen here approximately twice a month for this with conversion with adenosine and occasionally she will convert with IV start or with vomiting. Patient says that she did not note any new triggers and has been trying to cut back on her tobacco use and her caffeine use. She has no complaints of chest pain just the discomfort with the tachycardia she has had no recent fever chills shortness of breath cough vomiting or diarrhea. She states she is perimenopausal. Review of systems: As per history of present illness and below otherwise all systems reviewed and negative. Past medical history: As per history of present illness and as reviewed below otherwise noncontributory. Surgical history: As per history of present illness and as reviewed below otherwise noncontributory. Social history: No reported history of drug or alcohol abuse. Family history: As per history of present illness and as reviewed below otherwise noncontributory. Physical exam: General: Well-developed overweight female who is nontoxic and speaking clearly and easily in ED. She is diaphoretic in the ER HEENT: Atraumatic, normocephalic, negative for conjunctival pallor or scleral icterus, mucous membranes moist, throat clear, neck supple, nontender, trachea midline. Lungs: Clear to auscultation, breath sounds equal bilaterally, chest nontender. Work of breathing or sensory muscle use Heart: S1S2, regular rhythm and very tachycardic rate, negative for clicks, rubs , or JVD. Abdomen: Soft, nondistended, nontender. Negative for masses or hepatosplenomegaly. NABS Pelvis: Stable nontender. 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: Deferred. Rectal: Deferred. Extremities: Atraumatic, negative for cords or calf pain. Neurovascular unremarkable. No pedal edema Neuro: Awake, alert, oriented. Cranial nerves II through XII unremarkable. Cerebellum unremarkable. Motor and sensory unremarkable throughout. Exam nonfocal. Diagnostics: EKG x2 CBC CMP troponin Therapeutics: IV O2 monitor IV fluids adenosine 6 mg and 12 mg Initially the patient was given 6 mg of adenosine and she did not slow down or convert but after the dose of 12mg she converted and slow down to sinus rhythm rate in the 80s to 90s. A repeat EKG will performed at basic labs will be done. Patient will be observed and again encouraged to followup with cardiology Patient continues to maintain a sinus rhythm at a normal heart rate and he she will be discharged for home Impression: SVT recurrent Definitive disposition and diagnosis as appropriate pending reevaluation and review of above. 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: Musculoskeletal History: Reports: None Neurological History: Reports: None Psychiatric History: Reports: None Endocrine/Metabolic History: Reports: None Hematologic History: Reports: None Immunologic History: Reports: None Oncologic (Cancer) History: Reports: None Dermatologic History: Reports: None - Infectious Disease History Infectious Disease History: Reports: Chicken pox, Rubella - Past Surgical History Head Surgeries/Procedures: Reports: None Cardiovascular Surgical History: Reports: None GI Surgical History: Reports: Appendectomy, Cholecystectomy Endocrine Surgical History: Reports: None Neurological Surgical History: Reports: None Musculoskeletal Surgical History: Reports: None Social & Family History - Family History Family Medical History: Noncontributory - Tobacco Use Smoking Status *Q: Current Every Day Smoker Years of Tobacco use: 15 Packs/Tins Daily: 1 Second Hand Smoke Exposure: No - Caffeine Use Caffeine Use: Reports: Coffee, Soda - Recreational Drug Use Recreational Drug Use: No ED ROS GENERAL - Review of Systems Review Of Systems: ROS reveals no pertinent complaints other than HPI. ED EXAM, GENERAL - Physical Exam Exam: See Below (see Dictation) Course - Vital Signs Last Recorded V/S: Last Vital Signs Temp 36.6 C 11/15/16 19:25 Pulse 205 H 11/15/16 19:25 Resp 16 11/15/16 19:25 BP 102/82 11/15/16 19:25 Pulse Ox 97 11/15/16 19:25 - Orders/Labs/Meds Orders: Active Orders 24 hr Category Date Time Status Cardiac Monitoring [RC] . DIRECTED Care 11/15/16 19:20 Active EKG Documentation Completion [RC] STAT Care 11/15/16 19:20 Active EKG Documentation Completion [RC] STAT Care 11/15/16 19:20 Active Oxygen Therapy, ED [RC] ASDIRECTED Care 11/15/16 19:20 Active Pulse Oximetry [RC] ASDIRECTED Care 11/15/16 19:20 Active Sodium Chloride 0.9% [Normal Saline] 500 ml Med 11/15/16 19:30 Active IV STAT Sodium Chloride 0.9% [Saline Flush] Med 11/15/16 19:19 Active 10 ml FLUSH ASDIRECTED PRN Sodium Chloride 0.9% [Saline Flush] Med 11/15/16 19:19 Active 2.5 ml FLUSH ASDIRECTED PRN Saline Lock Insert [OM.PC] Stat Oth 11/15/16 19:20 Ordered Medication Orders Sodium Chloride (Normal Saline) 500 mls @ 999 mls/hr IV STAT ALEJANDRA Last Admin: 11/15/16 19:29 Dose: 999 mls/hr Sodium Chloride (Saline Flush) 10 ml FLUSH ASDIRECTED PRN PRN Reason: Keep Vein Open Sodium Chloride (Saline Flush) 2.5 ml FLUSH ASDIRECTED PRN PRN Reason: Keep Vein Open Labs: Laboratory Tests 11/15/16 11/15/16 11/15/16 Range/Units 19:15 19:15 19:15 WBC 11.46 H (4.0-11.0) K/uL RBC 4.85 (4.30-5.90) M/uL Hgb 14.7 (12.0-16.0) g/dL Hct 42.2 (36.0-46.0) % MCV 87.0 (80.0-98.0) fL MCH 30.3 (27.0-32.0) pg MCHC 34.8 (31.0-37.0) g/dL RDW Std Deviation 43.8 (28.0-62.0) fl RDW Coeff of Itz 14 (11.0-15.0) % Plt Count 363 (150-400) K/uL MPV 10.10 (7.40-12.00) fL Neut % (Auto) 53.8 (48.0-80.0) % Lymph % (Auto) 33.9 (16.0-40.0) % [place] % (Auto) 8.0 (0.0-15.0) % Eos % (Auto) 4.0 (0.0-7.0) % Baso % (Auto) 0.3 (0.0-1.5) % Neut # (Auto) 6.2 H (1.4-5.7) K/uL Lymph # (Auto) 3.9 H (0.6-2.4) K/uL [place] # (Auto) 0.9 H (0.0-0.8) K/uL Eos # (Auto) 0.5 (0.0-0.7) K/uL Baso # (Auto) 0.0 (0.0-0.1) K/uL Nucleated RBC % 0.0 /100WBC Nucleated RBCs # 0 K/uL Sodium 140 (136-146) mmol/L Potassium 4.1 (3.5-5.1) mmol/L Chloride 110 (98-110) mmol/L Carbon Dioxide 16 L (21-31) mmol/L BUN 22 (6.0-23.0) mg/dL Creatinine 0.8 (0.6-1.5) mg/dL Est Cr Clr Drug Dosing 82.98 mL/min Estimated GFR (MDRD) > 60.0 ml/min Glucose 130 H (60-110) mg/dL Calcium 9.6 (8.8-10.8) mg/dL Total Bilirubin 0.4 (0.1-1.5) mg/dL AST 30 (5-40) IU/L ALT 40 (8-54) IU/L Alkaline Phosphatase 159 H (40-150) Troponin I < 0.10 (0.0-0.29) NG/ML Total Protein 7.6 (6.0-8.0) g/dL Albumin 4.2 (3.5-5.0) g/dL Globulin 3.4 (2.0-3.5) g/dL Albumin/Globulin Ratio 1.2 L (1.3-2.8) Meds: Medications Generic Name Dose Route Start Last Admin Trade Name Freq PRN Reason Stop Dose Admin Sodium Chloride 500 mls @ 999 mls/hr 11/15/16 19:30 11/15/16 19:29 Normal Saline IV 999 mls/hr STAT ALEJANDRA Administration Sodium Chloride 10 ml 11/15/16 19:19 Saline Flush FLUSH ASDIRECTED PRN Keep Vein Open Sodium Chloride 2.5 ml 11/15/16 19:19 Saline Flush FLUSH ASDIRECTED PRN Keep Vein Open Discontinued Medications Generic Name Dose Route Start Last Admin Trade Name Freq PRN Reason Stop Dose Admin Adenosine Confirm 11/15/16 19:15 11/15/16 19:19 Adenocard Administered 11/15/16 19:16 12 mg Dose Administration 12 mg .ROUTE .STK-MED ONE Adenosine Confirm 11/15/16 19:19 11/15/16 19:17 Adenocard Administered 11/15/16 19:20 6 mg Dose Administration 6 mg .ROUTE .STK-MED ONE Adenosine 6 mg 11/15/16 19:30 11/15/16 19:32 Adenoscan IVPUSH 11/15/16 19:31 Not Given ONETIME ONE Adenosine 12 mg 11/15/16 19:30 11/15/16 19:32 Adenoscan IVPUSH 11/15/16 19:31 Not Given ONETIME ONE Departure - Departure Time of Disposition: 20:01 Disposition: Home, Self-Care 01 Condition: good Clinical Impression: PSVT (paroxysmal supraventricular tachycardia) - Discharge Information Referrals: PCP,None [Primary Care Provider] - Additional Instructions: The following information is given to patients seen in the emergency department who are being discharged to home. This information is to outline your options for follow-up care. We provide all patients seen in our emergency department with a follow-up referral. The need for follow-up, as well as the timing and circumstances, are variable depending upon the specifics of your emergency department visit. If you don't have a primary care physician on staff, we will provide you with a referral. We always advise you to contact your personal physician following an emergency department visit to inform them of the circumstance of the visit and for follow-up with them and/or the need for any referrals to a consulting specialist. The emergency department will also refer you to a specialist when appropriate. This referral assures that you have the opportunity for followup care with a specialist. All of these measure are taken in an effort to provide you with optimal care, which includes your followup. Under all circumstances we always encourage you to contact your private physician who remains a resource for coordinating your care. When calling for followup care, please make the office aware that this follow-up is from your recent emergency room visit. If for any reason you are refused follow-up, please contact the emergency department at and ask to speak to the emergency department charge nurse. [facility] Primary care- [place] [address] Please continue to try to avoid caffeine and smoking. 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 DIRECTED EKG Documentation Completion [RC] STAT EKG Documentation Completion [RC] STAT Oxygen Therapy, ED [RC] ASDIRECTED Pulse Oximetry [RC] ASDIRECTED Saline Lock Insert [OM.PC] Stat 11/15/16 19:30 Sodium Chloride 0.9% [Normal Saline] 500 ml IV STAT - Assessment/Plan Last 24 Hours: My Active Orders 11/15/16 19:19 Sodium Chloride 0.9% [Saline Flush] 10 ml FLUSH ASDIRECTED PRN Sodium Chloride 0.9% [Saline Flush] 2.5 ml FLUSH ASDIRECTED PRN 11/15/16 19:20 Cardiac Monitoring [RC] . DIRECTED EKG Documentation Completion [RC] STAT EKG Documentation Completion [RC] STAT Oxygen Therapy, ED [RC] ASDIRECTED Pulse Oximetry [RC] ASDIRECTED Saline Lock Insert [OM.PC] Stat 11/15/16 19:30 Sodium Chloride 0.9% [Normal Saline] 500 ml IV STAT
[2016-11-15] MEDS ORDERED: Sodium Chloride 0.9% 500 ML IV SCH (19:30)
[2016-11-15 19:58] LABS: CHLORIDE,CL 110 mmol/L (98-110); SODIUM,NA 140 mmol/L (136-146)
[2016-11-16 00:17] VITALS: BP 117/86
== END 2016-11-15 20:06 | disposition home or self-care (01) ==
LOC: MW.ED 19:09
DX: I47.1 Supraventricular tachycardia (principal); F17.210 Nicotine dependence, cigarettes, uncomplicated; Z90.49 Acquired absence of other specified parts of digestive tract; Z79.899 Other long term (current) drug therapy; Z88.5 Allergy status to narcotic agent
CPT/HCPCS: 36415; 80053; 84484; 85025; 93005; 96361; 96374; 99285; J0153; J7040; 99283

== ENCOUNTER 2016-11-30 13:27 | Emergency (ER) | payer SELFPAY ==
[2016-11-30] MEDS ORDERED: Adenosine 6 MG/2 ML SDV ONE ×2 (13:30→13:37)
[2016-11-30] MEDS ORDERED: Sodium Chloride 0.9% 1,000 ML IV ONE (13:31)
[2016-11-30] MEDS ORDERED: Adenosine 6 MG/2 ML SDV IVPUSH ONE (13:31)
--- NOTE | 2016-11-30 13:32 | EDM.PDOC ---
ED HPI GENERAL MEDICAL PROBLEM - General Stated Complaint: HEALTH RAISING Time Seen by Provider: 11/30/16 13:32 Source of Information: Reports: Patient - History of Present Illness INITIAL COMMENTS - FREE TEXT/NARRATIVE: HISTORY AND PHYSICAL: History of present illness: [] Patient with history of SVT presents with SVT rate in the 200s Of fever nausea vomiting chills sweats no chest pain shortness breath headache dizziness palpitation about a urine symptoms Review of systems: As per history of present illness and below otherwise all systems reviewed and negative. Past medical history: As per history of present illness and as reviewed below otherwise noncontributory. Surgical history: As per history of present illness and as reviewed below otherwise noncontributory. Social history: No reported history of drug or alcohol abuse. Family history: As per history of present illness and as reviewed below otherwise noncontributory. Physical exam: HEENT: Atraumatic, normocephalic, pupils reactive, negative for conjunctival pallor or scleral icterus, mucous membranes moist, throat clear, neck supple, nontender, trachea midline. Lungs: Clear to auscultation, breath sounds equal bilaterally, chest nontender. Heart: S1S2, regular, negative for clicks, rubs, or JVD. Abdomen: Soft, nondistended, nontender. Negative for masses or hepatosplenomegaly. Negative for costovertebral tenderness. Pelvis: Stable nontender. 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: Deferred. Rectal: Deferred. Extremities: Atraumatic, negative for cords or calf pain. Neurovascular unremarkable. Neuro: Awake, alert, oriented. Cranial nerves II through XII unremarkable. Cerebellum unremarkable. Motor and sensory unremarkable throughout. Exam nonfocal. Diagnostics: [] Therapeutics: [] 1 L normal saline bolus Adenosine 6 mg IV, followed by milligrams IV with conversion to sinus rhythm in the 90s Impression: [] SVT converted to sinus Rate 80s and 90s Chronic history of baseline Definitive disposition and diagnosis as appropriate pending reevaluation and review of above. Chest Pain Pain Score (Numeric/FACES): 4 - Related Data Allergies Allergy/AdvReac Type Severity Reaction Status Date / Time codeine Allergy Abdominal Verified 11/30/16 13:49 Pain Home Meds: Home Meds Metoprolol Succinate [Toprol XL] 25 mg PO DAILY 03/15/16 [History] Past Medical History - Past Health History Medical/Surgical History: Denies Medical/Surgical History HEENT History: Reports: None Cardiovascular History: Reports: Arrhythmia, Other (See Below) Other Cardiovascular History: SVT Respiratory History: Reports: None Gastrointestinal History: Reports: None 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 History: Reports: None 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: Musculoskeletal History: Reports: None Neurological History: Reports: None Psychiatric History: Reports: None Endocrine/Metabolic History: Reports: None Hematologic History: Reports: None Immunologic History: Reports: None Oncologic (Cancer) History: Reports: None Dermatologic History: Reports: None - Infectious Disease History Infectious Disease History: Reports: Chicken Pox, Rubella - Past Surgical History Head Surgeries/Procedures: Reports: None Cardiovascular Surgical History: Reports: None GI Surgical History: Reports: Appendectomy, Cholecystectomy Endocrine Surgical History: Reports: None Neurological Surgical History: Reports: None Musculoskeletal Surgical History: Reports: None Social & Family History - Family History Family Medical History: Noncontributory - Tobacco Use Smoking Status *Q: Current Every Day Smoker Years of Tobacco use: 15 Packs/Tins Daily: 1 Second Hand Smoke Exposure: No - Caffeine Use Caffeine Use: Reports: Coffee, Soda - Recreational Drug Use Recreational Drug Use: No ED ROS GENERAL - Review of Systems Review Of Systems: ROS reveals no pertinent complaints other than HPI. ED EXAM, GENERAL - Physical Exam Exam: See Below Course - Vital Signs Last Recorded V/S: Last Vital Signs Temp 36.0 C 11/30/16 13:50 Pulse 78 11/30/16 14:23 Resp 16 11/30/16 14:23 BP 120/59 L 11/30/16 14:23 Pulse Ox 98 11/30/16 14:23 - Orders/Labs/Meds Orders: Active Orders 24 hr Category Date Time Status EKG 12 Lead [EKG Documentation Completion] [RC] STAT Care 11/30/16 13:50 Active EKG 12 Lead [EKG Documentation Completion] [RC] STAT Care 11/30/16 13:51 Active Labs: Laboratory Tests 11/30/16 11/30/16 11/30/16 Range/Units 13:50 13:50 13:50 WBC 7.76 (4.0-11.0) K/uL RBC 5.03 (4.30-5.90) M/uL Hgb 15.3 (12.0-16.0) g/dL Hct 43.9 (36.0-46.0) % MCV 87.3 (80.0-98.0) fL MCH 30.4 (27.0-32.0) pg MCHC 34.9 (31.0-37.0) g/dL RDW Std Deviation 43.5 (28.0-62.0) fl RDW Coeff of Itz 14 (11.0-15.0) % Plt Count 303 (150-400) K/uL MPV 10.40 (7.40-12.00) fL Neut % (Auto) 58.9 (48.0-80.0) % Lymph % (Auto) 32.0 (16.0-40.0) % [place] % (Auto) 5.9 (0.0-15.0) % Eos % (Auto) 2.6 (0.0-7.0) % Baso % (Auto) 0.6 (0.0-1.5) % Neut # (Auto) 4.6 (1.4-5.7) K/uL Lymph # (Auto) 2.5 H (0.6-2.4) K/uL [place] # (Auto) 0.5 (0.0-0.8) K/uL Eos # (Auto) 0.2 (0.0-0.7) K/uL Baso # (Auto) 0.1 (0.0-0.1) K/uL Nucleated RBC % 0.0 /100WBC Nucleated RBCs # 0 K/uL Sodium 139 (136-146) mmol/L Potassium 4.3 (3.5-5.1) mmol/L Chloride 107 (98-110) mmol/L Carbon Dioxide 19 L (21-31) mmol/L BUN 23 (6.0-23.0) mg/dL Creatinine 1.3 (0.6-1.5) mg/dL Est Cr Clr Drug Dosing 51.27 mL/min Estimated GFR (MDRD) 43.0 ml/min Glucose 170 H (60-110) mg/dL Calcium 9.6 (8.8-10.8) mg/dL Total Bilirubin 0.6 (0.1-1.5) mg/dL AST 26 (5-40) IU/L ALT 41 (8-54) IU/L Alkaline Phosphatase 131 (40-150) Troponin I < 0.10 (0.0-0.29) NG/ML Total Protein 7.3 (6.0-8.0) g/dL Albumin 4.3 (3.5-5.0) g/dL Globulin 3.0 (2.0-3.5) g/dL Albumin/Globulin Ratio 1.4 (1.3-2.8) Meds: Medications Discontinued Medications Generic Name Dose Route Start Last Admin Trade Name Jerry PRDelon Reason Stop Dose Admin Adenosine 6 mg 11/30/16 13:31 11/30/16 13:41 Adenocard IVPUSH 11/30/16 13:32 6 mg NOW ONE Administration Adenosine Confirm 11/30/16 13:30 11/30/16 13:42 Adenocard Administered 11/30/16 13:31 12 mg Dose Administration 12 mg .ROUTE .STK-MED ONE Adenosine Confirm 11/30/16 13:37 11/30/16 13:42 Adenocard Administered 11/30/16 13:38 Not Given Dose 6 mg .ROUTE .STK-MED ONE Sodium Chloride 1,000 mls @ 999 mls/hr 11/30/16 13:31 11/30/16 13:41 Normal Saline IV 11/30/16 14:31 999 mls/hr STAT ONE Administration Departure - Departure Time of Disposition: 14:57 Disposition: Home, Self-Care 01 Condition: good Clinical Impression: SVT (supraventricular tachycardia) - Discharge Information Additional Instructions: Return if symptoms persist or worsen Continue current medications Followup with primary care in 2 weeks The following information is given to patients seen in the emergency department who are being discharged to home. This information is to outline your options for follow-up care. We provide all patients seen in our emergency department with a follow-up referral. The need for follow-up, as well as the timing and circumstances, are variable depending upon the specifics of your emergency department visit. If you don't have a primary care physician on staff, we will provide you with a referral. We always advise you to contact your personal physician following an emergency department visit to inform them of the circumstance of the visit and for follow-up with them and/or the need for any referrals to a consulting specialist. The emergency department will also refer you to a specialist when appropriate. This referral assures that you have the opportunity for follow-up care with a specialist. All of these measure are taken in an effort to provide you with optimal care, which includes your follow-up. Under all circumstances we always encourage you to contact your private physician who remains a resource for coordinating your care. When calling for follow-up care, please make the office aware that this follow-up is from your recent emergency room visit. If for any reason you are refused follow-up, please contact the [facility] emergency department at and asked to speak to the emergency department charge nurse. - My Orders Last 24 Hours: My Active Orders 11/30/16 13:50 EKG 12 Lead [EKG Documentation Completion] [RC] STAT 11/30/16 13:51 EKG 12 Lead [EKG Documentation Completion] [RC] STAT - Assessment/Plan Last 24 Hours: My Active Orders 11/30/16 13:50 EKG 12 Lead [EKG Documentation Completion] [RC] STAT 11/30/16 13:51 EKG 12 Lead [EKG Documentation Completion] [RC] STAT
[2016-11-30 15:05] VITALS: BP 126/72
== END 2016-11-30 15:04 | disposition home or self-care (01) ==
LOC: MW.ED 13:27
DX: I47.1 Supraventricular tachycardia (principal); F17.210 Nicotine dependence, cigarettes, uncomplicated; Z88.5 Allergy status to narcotic agent; Z79.899 Other long term (current) drug therapy; Z90.49 Acquired absence of other specified parts of digestive tract
CPT/HCPCS: 36415; 80053; 84484; 85025; 93005; 96361; 96374; 99285; J0153; J7040; 99284

== ENCOUNTER 2017-01-16 10:14 | Emergency (ER) | payer SELFPAY ==
[2017-01-16] MEDS ORDERED: Sodium Chloride 0.9% 1,000 ML IV ONE (10:19)
[2017-01-16] MEDS ORDERED: Adenosine 6 MG/2 ML SDV IVPUSH ONE ×2 (10:22→10:29)
--- NOTE | 2017-01-16 11:33 | EDM.PDOC ---
ED HPI GENERAL MEDICAL PROBLEM - General Chief Complaint: Cardiovascular Problem Stated Complaint: RACING HEART Time Seen by Provider: 01/16/17 10:20 Source of Information: Reports: Patient History Limitations: Reports: No Limitations - History of Present Illness INITIAL COMMENTS - FREE TEXT/NARRATIVE: History of present illness: 52-year-old female presenting with tachycardia. Patient indicates she has a chronic history of this and requires 12 of that medicine to change her heart rate. Patient is diaphoretic and speaking in bursts and indicating she is nauseated. Review of systems: As per history of present illness and below otherwise all systems reviewed and negative. Past medical history: As per history of present illness and as reviewed below otherwise noncontributory. Surgical history: As per history of present illness and as reviewed below otherwise noncontributory. Social history: No reported history of drug or alcohol abuse. Family history: As per history of present illness and as reviewed below otherwise noncontributory. Physical exam: HEENT: Atraumatic, normocephalic, pupils reactive, negative for conjunctival pallor or scleral icterus, mucous membranes moist, throat clear, neck supple, nontender, trachea midline. Lungs: Clear to auscultation, breath sounds equal bilaterally, chest nontender. Heart: Patient an SVT rate of 170s to 2 teens Abdomen: Soft, nondistended, nontender. Negative for masses or hepatosplenomegaly. Negative for costovertebral tenderness. Pelvis: Stable nontender. 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: Deferred. Rectal: Deferred. Extremities: Atraumatic, negative for cords or calf pain. Neurovascular unremarkable. Neuro: Awake, alert, oriented. Cranial nerves II through XII unremarkable. Cerebellum unremarkable. Motor and sensory unremarkable throughout. Exam nonfocal. IV line established adenosine 6 mg IV push given with no change in right or rhythm. Secondary to patients refractory status 12 mg IV push given with patient subsequently converting to normal sinus rhythm. 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 Dr. Gonzalez her bedside decision made to increase patient's metoprolol and have her follow-up in clinic in 2 weeks with him. Diagnostics: [CBC, CMP, EKG 2, troponin and amylase, lipase] Therapeutics: [Desiring 6 mg, adenosine 12 mg, IV fluid, metoprolol 50 mg by mouth] Impression: [SVT] Plan: [Increase metoprolol follow-up with Dr. Gonzalez in 2 weeks] Definitive disposition and diagnosis as appropriate pending reevaluation and review of above. Chest Pain Score (Numeric/FACES): 7 - Related Data Allergies Allergy/AdvReac Type Severity Reaction Status Date / Time codeine Allergy Abdominal Verified 11/30/16 13:49 Pain Home Meds: Home Meds Metoprolol Succinate [Toprol XL] 25 mg PO DAILY 03/15/16 [History] Metoprolol Succinate 50 mg PO DAILY #30 tab.er.24h 01/16/17 [Rx] Past Medical History - Past Health History Medical/Surgical History: Denies Medical/Surgical History HEENT History: Reports: None Cardiovascular History: Reports: Arrhythmia, Other (See Below) Other Cardiovascular History: SVT Respiratory History: Reports: None Gastrointestinal History: Reports: None 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 History: Reports: None 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: Musculoskeletal History: Reports: None Neurological History: Reports: None Psychiatric History: Reports: None Endocrine/Metabolic History: Reports: None Hematologic History: Reports: None Immunologic History: Reports: None Oncologic (Cancer) History: Reports: None Dermatologic History: Reports: None - Infectious Disease History Infectious Disease History: Reports: Chicken Pox, Rubella - Past Surgical History Head Surgeries/Procedures: Reports: None Cardiovascular Surgical History: Reports: None GI Surgical History: Reports: Appendectomy, Cholecystectomy Endocrine Surgical History: Reports: None Neurological Surgical History: Reports: None Musculoskeletal Surgical History: Reports: None Social & Family History - Family History Family Medical History: Noncontributory - Tobacco Use Smoking Status *Q: Current Every Day Smoker Years of Tobacco use: 15 Packs/Tins Daily: 1 Second Hand Smoke Exposure: No - Caffeine Use Caffeine Use: Reports: Coffee, Soda - Recreational Drug Use Recreational Drug Use: No ED ROS GENERAL - Review of Systems Review Of Systems: See Below (The history of present illness) ED EXAM, GENERAL - Physical Exam Exam: See Below (The history of present illness) Course - Vital Signs Last Recorded V/S: Last Vital Signs Temp 35.4 C 01/16/17 10:26 Pulse 200 H 01/16/17 10:26 Resp 28 H 01/16/17 10:26 BP 128/92 H 01/16/17 10:26 Pulse Ox 96 01/16/17 10:26 - Orders/Labs/Meds Orders: Active Orders 24 hr Category Date Time Status EKG Documentation Completion [RC] STAT Care 01/16/17 10:15 Active Chest 1V Frontal [CR] Stat Exams 01/16/17 11:10 Taken Labs: Laboratory Tests 01/16/17 01/16/17 01/16/17 Range/Units 10:20 10:20 10:20 WBC 10.89 (4.0-11.0) K/uL RBC 5.14 (4.30-5.90) M/uL Hgb 15.6 (12.0-16.0) g/dL Hct 44.7 (36.0-46.0) % MCV 87.0 (80.0-98.0) fL MCH 30.4 (27.0-32.0) pg MCHC 34.9 (31.0-37.0) g/dL RDW Std Deviation 43.1 (28.0-62.0) fl RDW Coeff of Itz 14 (11.0-15.0) % Plt Count 392 (150-400) K/uL MPV 10.20 (7.40-12.00) fL Neut % (Auto) 51.7 (48.0-80.0) % Lymph % (Auto) 37.6 (16.0-40.0) % [place] % (Auto) 8.1 (0.0-15.0) % Eos % (Auto) 2.3 (0.0-7.0) % Baso % (Auto) 0.3 (0.0-1.5) % Neut # (Auto) 5.6 (1.4-5.7) K/uL Lymph # (Auto) 4.1 H (0.6-2.4) K/uL [place] # (Auto) 0.9 H (0.0-0.8) K/uL Eos # (Auto) 0.3 (0.0-0.7) K/uL Baso # (Auto) 0.0 (0.0-0.1) K/uL Nucleated RBC % 0.0 /100WBC Nucleated RBCs # 0 K/uL INR (0.86-1.11) Sodium 139 (136-146) mmol/L Potassium 4.0 (3.5-5.1) mmol/L Chloride 109 (98-110) mmol/L Carbon Dioxide 19 L (21-31) mmol/L BUN 24 H (6.0-23.0) mg/dL Creatinine 1.0 (0.6-1.5) mg/dL Est Cr Clr Drug Dosing 65.89 mL/min Estimated GFR (MDRD) 58.0 ml/min Glucose 153 H (60-110) mg/dL Calcium 9.2 (8.8-10.8) mg/dL Total Bilirubin 0.4 (0.1-1.5) mg/dL AST 26 (5-40) IU/L ALT 45 (8-54) IU/L Alkaline Phosphatase 158 H (40-150) Troponin I < 0.10 (0.0-0.29) NG/ML Total Protein 7.4 (6.0-8.0) g/dL Albumin 4.2 (3.5-5.0) g/dL Globulin 3.2 (2.0-3.5) g/dL Albumin/Globulin Ratio 1.3 (1.3-2.8) // Range/Units 10:20 WBC (4.0-11.0) K/uL RBC (4.30-5.90) M/uL Hgb (12.0-16.0) g/dL Hct (36.0-46.0) % MCV (80.0-98.0) fL MCH (27.0-32.0) pg MCHC (31.0-37.0) g/dL RDW Std Deviation (28.0-62.0) fl RDW Coeff of Itz (11.0-15.0) % Plt Count (150-400) K/uL MPV (7.40-12.00) fL Neut % (Auto) (48.0-80.0) % Lymph % (Auto) (16.0-40.0) % [place] % (Auto) (0.0-15.0) % Eos % (Auto) (0.0-7.0) % Baso % (Auto) (0.0-1.5) % Neut # (Auto) (1.4-5.7) K/uL Lymph # (Auto) (0.6-2.4) K/uL [place] # (Auto) (0.0-0.8) K/uL Eos # (Auto) (0.0-0.7) K/uL Baso # (Auto) (0.0-0.1) K/uL Nucleated RBC % /100WBC Nucleated RBCs # K/uL INR 0.92 (0.86-1.11) Sodium (136-146) mmol/L Potassium (3.5-5.1) mmol/L Chloride (98-110) mmol/L Carbon Dioxide (21-31) mmol/L BUN (6.0-23.0) mg/dL Creatinine (0.6-1.5) mg/dL Est Cr Clr Drug Dosing mL/min Estimated GFR (MDRD) ml/min Glucose (60-110) mg/dL Calcium (8.8-10.8) mg/dL Total Bilirubin (0.1-1.5) mg/dL AST (5-40) IU/L ALT (8-54) IU/L Alkaline Phosphatase (40-150) Troponin I (0.0-0.29) NG/ML Total Protein (6.0-8.0) g/dL Albumin (3.5-5.0) g/dL Globulin (2.0-3.5) g/dL Albumin/Globulin Ratio (1.3-2.8) Meds: Medications Discontinued Medications Generic Name Dose Route Start Last Admin Trade Name Jerry PRN Reason Stop Dose Admin Adenosine 6 mg 01/16/17 10:22 01/16/17 10:28 Adenocard IVPUSH 01/16/17 10:23 6 mg NOW ONE Administration Adenosine 12 mg 01/16/17 10:29 01/16/17 10:29 Adenocard IVPUSH 01/16/17 10:30 12 mg NOW ONE Administration Sodium Chloride 1,000 mls @ 999 mls/hr 01/16/17 10:19 01/16/17 10:27 Normal Saline IV 01/16/17 11:19 999 mls/hr STAT ONE Administration Departure - Departure Time of Disposition: 11:51 Disposition: Home, Self-Care 01 Condition: Good Clinical Impression: Supraventricular tachycardia Forms: ED Department Discharge Additional Instructions: The following information is given to patients seen in the emergency department who are being discharged to home. This information is to outline your options for follow-up care. We provide all patients seen in our emergency department with a follow-up referral. The need for follow-up, as well as the timing and circumstances, are variable depending upon the specifics of your emergency department visit. If you don't have a primary care physician on staff, we will provide you with a referral. We always advise you to contact your personal physician following an emergency department visit to inform them of the circumstance of the visit and for follow-up with them and/or the need for any referrals to a consulting specialist. The emergency department will also refer you to a specialist when appropriate. This referral assures that you have the opportunity for follow-up care with a specialist. All of these measure are taken in an effort to provide you with optimal care, which includes your follow-up. Under all circumstances we always encourage you to contact your private physician who remains a resource for coordinating your care. When calling for follow-up care, please make the office aware that this follow-up is from your recent emergency room visit. If for any reason you are refused follow-up, please contact the [facility] Emergency Department at and asked to speak to the emergency department charge nurse. Her medication has been increased to 50 mg daily extended release as opposed to the 25 a new prescription was sent and a pharmacy for you need to start taking that tomorrow as you're giving her first dose here today You were seen today by the harvest worker field crop Dr. Gonzalez as discussed by him with you you need to follow-up in his office at the clinic in 2 weeks Return to ED as needed as discussed - My Orders Last 24 Hours: My Active Orders 01/16/17 10:15 EKG Documentation Completion [RC] STAT 01/16/17 11:10 Chest 1V Frontal [CR] Stat - Assessment/Plan Last 24 Hours: My Active Orders 01/16/17 10:15 EKG Documentation Completion [RC] STAT 01/16/17 11:10 Chest 1V Frontal [CR] Stat
[2017-01-16] MEDS ORDERED: Metoprolol Succinate 50 MG Tab.ER PO ONE (11:42)
--- NOTE | 2017-01-16 11:46 | CR ---
EXAMINATION: Portable chest radiograph. HISTORY: SVT. Comparison: 10/22/2016 and 01/07/2016. FINDINGS: The trachea is midline. The cardiomediastinal silhouette is within normal limits. No pulmonary infil trates, effusions or pneumothorax. Osseous structures appear unremarkable. IMPRESSION: No acute cardiopulmonary process.
[2017-01-16 16:33] VITALS: BP 128/87
--- NOTE | 2017-01-17 09:18 | CONS ---
DATE OF CONSULTATION: 01/16/2017 DATE OF : 1965 PRIMARY CARE PHYSICIAN: None PCP REASON FOR CONSULTATION: SVT. HISTORY OF PRESENT ILLNESS: This is a 52-year-old female with a history of SVT. She presented to the hospital due to heart racing and palpitation. She stated that it started last night around 3:00 p.m., she tried to bear down and seemed to have a stop heart racing symptoms, however. It recurred again around 9 o'clock when she was at work she started feeling dizzy and it lasted for an hour. She had waited for an hour; however, her symptom did not get better and she tried bearing down. However, the 2nd time it was not successful, and she came to the emergency room. She received adenosine 6 mg and followed by 12 mg of adenosine, which seemed to convert her to sinus rhythm. She also was saying that when she has the heart rate symptoms she also had a chest pressure as well as feeling dizzy and also out of breath. She had been in the emergency room multiple times. At least, this year she has been in the emergency room for 8 times for SVT. She stated that she started having heart racing since she was young and never been talk about ablation, especially she said it happened when she was working out. She is currently on metoprolol 25 twice a day. PAST MEDICAL HISTORY: SVT. She denies hypertension, hyperlipidemia, or diabetes. SOCIAL HISTORY: Denies alcohol use, drug use, or smoking. REVIEW OF SYSTEMS: A 12-point review of system has been negative except indicated in the HPI. FAMILY HISTORY: Noncontributory. PHYSICAL EXAMINATION: VITAL SIGNS: Blood pressure initially was 128/87, heart rate initially was 200, and it was converted to sinus rhythm with a heart rate of 70, temperature 35.4, respirations 18, and O2 saturation 98% on higher than 2 L, however, after it converted to sinus rhythm, it was 98% on room air. HEENT: Not pale, no jaundice, no JVD. Heart normal S1, S2. No murmur. LUNGS: Clear. ABDOMEN: Soft, nontender. Bowel sounds are present. No hepatosplenomegaly. EXTREMITIES: Legs, no edema. INVESTIGATIONS: CBC showed WBC 10, hematocrit 44, hemoglobin 392, INR 0.92. Sodium 139, potassium 4, chloride 109, bicarb 19, BUN 24, creatinine 1, glucose 153, troponin was negative. EKG showed SVT with a rate of [address] depression as well. ASSESSMENT AND PLAN: This is a 52-year-old female with acute recurrent SVT, and there was ST depression when she was in the SVT with a rate 199. I talked to her about possible ablation, and meantime, I will increase her metoprolol to 50 twice a day. Because of the symptom of chest pain as well as ST changes during SVT. I would definitely do an ischemic workup with stress test. She said she wanted to try exercise treadmill. We will arrange that as an outpatient and I would like to see her in 2 weeks after we increase the metoprolol to see how effective it is. We will talk to her about ablation and ischemic workup. THANH / RUBY /[id number]
== END 2017-01-16 12:33 | disposition home or self-care (01) ==
LOC: MW.ED 10:14
DX: I47.1 Supraventricular tachycardia (principal); F17.200 Nicotine dependence, unspecified, uncomplicated; Z88.8 Allergy status to other drugs, medicaments and biological substances; Z79.899 Other long term (current) drug therapy
CPT/HCPCS: 36415; 71010; 80053; 84484; 85025; 85610; 93005; 96361; 96374; 99285; A9270; J0153; J7040; 99284

== ENCOUNTER 2017-01-17 08:42 | Emergency (ER) | payer SELFPAY ==
[2017-01-17] MEDS ORDERED: Adenosine 6 MG/2 ML SDV ONE (08:46)
--- NOTE | 2017-01-17 08:49 | EDM.PDOC ---
ED HPI GENERAL MEDICAL PROBLEM - General Stated Complaint: RACING HEART Time Seen by Provider: 01/17/17 08:44 - History of Present Illness INITIAL COMMENTS - FREE TEXT/NARRATIVE: HISTORY AND PHYSICAL: History of present illness: Patient is 52-year-old white female with history of SVT who presents with concern of palpitations and tachycardia she was seen in the ED yesterday for the same requiring adenosine for chemical cardioversion cardiology did see her and increased her beta holden. Review of systems: As per history of present illness and below otherwise all systems reviewed and negative. Past medical history: As per history of present illness and as reviewed below otherwise noncontributory. Surgical history: As per history of present illness and as reviewed below otherwise noncontributory. Social history: No reported history of drug or alcohol abuse. Family history: As per history of present illness and as reviewed below otherwise noncontributory. Physical exam: HEENT: Atraumatic, normocephalic, pupils reactive, negative for conjunctival pallor or scleral icterus, mucous membranes moist, throat clear, neck supple, nontender, trachea midline. Lungs: Clear to auscultation, breath sounds equal bilaterally, chest nontender. Heart: S1S2, regular, tachycardic negative for clicks, rubs, or JVD. Abdomen: Soft, nondistended, nontender. Negative for masses or hepatosplenomegaly. Negative for costovertebral tenderness. Pelvis: Stable nontender. 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: Deferred. Rectal: Deferred. Extremities: Atraumatic, negative for cords or calf pain. Neurovascular unremarkable. Neuro: Awake, alert, oriented. Cranial nerves II through XII unremarkable. Cerebellum unremarkable. Motor and sensory unremarkable throughout. Exam nonfocal. Diagnostics: EKG Therapeutics: Adenosine 12 mg IV Impression: #1 SVT status post chemical cardioversion Definitive disposition and diagnosis as appropriate pending reevaluation and review of above. - Related Data Allergies Allergy/AdvReac Type Severity Reaction Status Date / Time codeine Allergy Abdominal Verified 01/17/17 09:00 Pain Home Meds: Home Meds Metoprolol Succinate [Toprol XL] 25 mg PO DAILY 03/15/16 [History] Metoprolol Succinate 50 mg PO DAILY #30 tab.er.24h 01/16/17 [Rx] Past Medical History - Past Health History Medical/Surgical History: Denies Medical/Surgical History HEENT History: Reports: None Cardiovascular History: Reports: Arrhythmia, Other (See Below) Other Cardiovascular History: SVT Respiratory History: Reports: None Gastrointestinal History: Reports: None 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 History: Reports: None 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: Musculoskeletal History: Reports: None Neurological History: Reports: None Psychiatric History: Reports: None Endocrine/Metabolic History: Reports: None Hematologic History: Reports: None Immunologic History: Reports: None Oncologic (Cancer) History: Reports: None Dermatologic History: Reports: None - Infectious Disease History Infectious Disease History: Reports: Chicken Pox, Rubella - Past Surgical History Head Surgeries/Procedures: Reports: None Cardiovascular Surgical History: Reports: None GI Surgical History: Reports: Appendectomy, Cholecystectomy Endocrine Surgical History: Reports: None Neurological Surgical History: Reports: None Musculoskeletal Surgical History: Reports: None Social & Family History - Family History Family Medical History: Noncontributory - Tobacco Use Smoking Status *Q: Current Every Day Smoker Years of Tobacco use: 15 Packs/Tins Daily: 1 Second Hand Smoke Exposure: No - Caffeine Use Caffeine Use: Reports: Coffee, Soda - Recreational Drug Use Recreational Drug Use: No ED ROS GENERAL - Review of Systems Review Of Systems: ROS reveals no pertinent complaints other than HPI. ED EXAM, GENERAL - Physical Exam Exam: See Below (See dictation) Course - Vital Signs Last Recorded V/S: Last Vital Signs Temp 35.5 C 01/17/17 08:55 Pulse 192 H 01/17/17 08:55 Resp 20 01/17/17 08:55 BP 143/123 H 01/17/17 08:55 Pulse Ox 100 01/17/17 08:55 - Orders/Labs/Meds Orders: Active Orders 24 hr Category Date Time Status EKG Documentation Completion [RC] STAT Care 01/17/17 08:43 Active Meds: Medications Discontinued Medications Generic Name Dose Route Start Last Admin Trade Name Freq PRN Reason Stop Dose Admin Adenosine Confirm 01/17/17 08:46 01/17/17 08:57 Adenocard Administered 01/17/17 08:47 Not Given Dose 12 mg .ROUTE .STK-MED ONE Adenosine 12 mg 01/17/17 08:50 01/17/17 08:57 Adenoscan IVPUSH 01/17/17 08:51 Not Given ONETIME ONE Adenosine 12 mg 01/17/17 08:54 01/17/17 08:57 Adenocard IVPUSH 01/17/17 08:55 12 mg NOW ONE Administration Departure - Departure Time of Disposition: 09:41 Disposition: Home, Self-Care 01 Condition: Good Clinical Impression: Supraventricular tachycardia - Discharge Information Additional Instructions: The following information is given to patients seen in the emergency department who are being discharged to home. This information is to outline your options for follow-up care. We provide all patients seen in our emergency department with a follow-up referral. The need for follow-up, as well as the timing and circumstances, are variable depending upon the specifics of your emergency department visit. If you don't have a primary care physician on staff, we will provide you with a referral. We always advise you to contact your personal physician following an emergency department visit to inform them of the circumstance of the visit and for follow-up with them and/or the need for any referrals to a consulting specialist. The emergency department will also refer you to a specialist when appropriate. This referral assures that you have the opportunity for followup care with a specialist. All of these measure are taken in an effort to provide you with optimal care, which includes your followup. Under all circumstances we always encourage you to contact your private physician who remains a resource for coordinating your care. When calling for followup care, please make the office aware that this follow-up is from your recent emergency room visit. If for any reason you are refused follow-up, please contact the [facility] emergency department at and asked to speak to the emergency department charge nurse. Follow-up primary medical doctor/line erector discussed continue current medications return as needed as discussed] - My Orders Last 24 Hours: My Active Orders 01/17/17 08:43 EKG Documentation Completion [RC] STAT - Assessment/Plan Last 24 Hours: My Active Orders 01/17/17 08:43 EKG Documentation Completion [RC] STAT
[2017-01-17] MEDS ORDERED: Sodium Chloride 0.9% 1,000 ML IV ONE (08:50)
[2017-01-17] MEDS ORDERED: Adenosine 6 MG/2 ML SDV IVPUSH ONE (08:54)
[2017-01-17 10:08] VITALS: BP 109/74
== END 2017-01-17 10:04 | disposition home or self-care (01) ==
LOC: MW.ED 08:42
DX: I47.1 Supraventricular tachycardia (principal); F17.200 Nicotine dependence, unspecified, uncomplicated; Z88.8 Allergy status to other drugs, medicaments and biological substances; Z79.899 Other long term (current) drug therapy
CPT/HCPCS: 93005; 96374; 99285; J0153; J7040; 99284

== ENCOUNTER 2017-08-20 16:38 | Emergency (ER) | payer OTHER ==
[2017-08-20] MEDS ORDERED: Adenosine 6 MG/2 ML SDV IVPUSH ONE ×2 (16:43→16:48)
[2017-08-20] MEDS ORDERED: Sodium Chloride 0.9% 2.5 ML Syringe FLUSH PRN (16:44)
[2017-08-20] MEDS ORDERED: Adenosine 6 MG/2 ML SDV ONE (16:44)
[2017-08-20] MEDS ORDERED: Sodium Chloride 0.9% 10 ML Syringe FLUSH PRN (16:44)
--- NOTE | 2017-08-20 16:54 | EDM.PDOC ---
ED HPI GENERAL MEDICAL PROBLEM - General Chief Complaint: Cardiovascular Problem Stated Complaint: CHEST PAIN/UNK Time Seen by Provider: 08/20/17 16:46 Source of Information: Reports: Patient History Limitations: Reports: No Limitations - History of Present Illness INITIAL COMMENTS - FREE TEXT/NARRATIVE: History of present illness: []Patient has a long history of SVT that converts easily with 12 mg of adenosine. Patient started having palpitations 10 minutes prior to arrival. Patient denies any chest pain, shortness of breath, dizziness or sweating,, which she usually does have. Review of systems: As per history of present illness and below otherwise all systems reviewed and negative. Past medical history: As per history of present illness and as reviewed below otherwise noncontributory. Surgical history: As per history of present illness and as reviewed below otherwise noncontributory. Social history: No reported history of drug or alcohol abuse. Family history: As per history of present illness and as reviewed below otherwise noncontributory. Physical exam: General: Well developed, well nourished in NAD HEENT: Atraumatic, normocephalic, pupils reactive, negative for conjunctival pallor or scleral icterus, mucous membranes moist, throat clear, neck supple, nontender, trachea midline. Lungs: Clear to auscultation, breath sounds equal bilaterally, chest nontender. Heart: S1S2, regular, negative for clicks, rubs, or JVD. Abdomen: Soft, nondistended, nontender. Negative for masses or hepatosplenomegaly. Negative for costovertebral tenderness. Pelvis: Stable nontender. 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: Deferred. Rectal: Deferred. Extremities: Atraumatic, negative for cords or calf pain. Neurovascular unremarkable. Neuro: Awake, alert, oriented. Cranial nerves II through XII unremarkable. Cerebellum unremarkable. Motor and sensory unremarkable throughout. Exam nonfocal. Diagnostics: []EKG shows SVT and SVT at 208 on the monitor. Therapeutics: []2 doses of adenosine 6 mg followed by 12 mg which converted her to sinus rhythm Impression: []SVT converted with adenosine Plan: []Follow-up with Dr. Lisa manuel if symptoms worsen or change Definitive disposition and diagnosis as appropriate pending reevaluation and review of above. Chest Pain Score (Numeric/FACES): 8 - Related Data Allergies Allergy/AdvReac Type Severity Reaction Status Date / Time codeine Allergy Abdominal Verified 08/20/17 16:55 Pain Home Meds: Home Meds . 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: Musculoskeletal History: Reports: None Neurological History: Reports: None Psychiatric History: Reports: None Endocrine/Metabolic History: Reports: None Hematologic History: Reports: None Immunologic History: Reports: None Oncologic (Cancer) History: Reports: None Dermatologic History: Reports: None - Infectious Disease History Infectious Disease History: Reports: Chicken Pox, Rubella - Past Surgical History Head Surgeries/Procedures: Reports: None Cardiovascular Surgical History: Reports: None GI Surgical History: Reports: Appendectomy, Cholecystectomy Endocrine Surgical History: Reports: None Neurological Surgical History: Reports: None Musculoskeletal Surgical History: Reports: None Social & Family History - Family History Family Medical History: Noncontributory - Tobacco Use Smoking Status *Q: Current Every Day Smoker Years of Tobacco use: 15 Packs/Tins Daily: 1 Second Hand Smoke Exposure: No - Caffeine Use Caffeine Use: Reports: Coffee, Soda - Recreational Drug Use Recreational Drug Use: No ED ROS GENERAL - Review of Systems Review Of Systems: See Below (See history of present illness) ED EXAM, GENERAL - Physical Exam Exam: See Below (See history of present illness) Course - Vital Signs Last Recorded V/S: Last Vital Signs Temp 98.6 F 08/20/17 16:45 Pulse 201 H 08/20/17 16:45 Resp 28 H 08/20/17 16:45 BP 143/90 H 08/20/17 16:45 Pulse Ox 100 08/20/17 16:45 - Orders/Labs/Meds Orders: Active Orders 24 hr Category Date Time Status EKG Documentation Completion [RC] STAT Care 08/20/17 16:44 Active EKG Documentation Completion [RC] STAT Care 08/20/17 16:55 Active Sodium Chloride 0.9% [Saline Flush] Med 08/20/17 16:44 Active 10 ml FLUSH ASDIRECTED PRN Sodium Chloride 0.9% [Saline Flush] Med 08/20/17 16:44 Active 2.5 ml FLUSH ASDIRECTED PRN Saline Lock Insert [OM.PC] Stat Oth 08/20/17 16:44 Ordered Medication Orders Sodium Chloride (Saline Flush) 10 ml FLUSH ASDIRECTED PRN PRN Reason: Keep Vein Open Sodium Chloride (Saline Flush) 2.5 ml FLUSH ASDIRECTED PRN PRN Reason: Keep Vein Open Labs: Laboratory Tests 08/20/17 Range/Units 16:53 Sodium 140 (136-146) mmol/L Potassium 4.0 (3.5-5.1) mmol/L Chloride 110 (98-110) mmol/L Carbon Dioxide 19 L (21-31) mmol/L BUN 18 (6.0-23.0) mg/dL Creatinine 0.8 (0.6-1.5) mg/dL Est Cr Clr Drug Dosing TNP Estimated GFR (MDRD) > 60.0 ml/min Glucose 112 H (60-110) mg/dL Calcium 9.4 (8.8-10.8) mg/dL Meds: Medications Generic Name Dose Route Start Last Admin Trade Name Freq PRN Reason Stop Dose Admin Sodium Chloride 10 ml 08/20/17 16:44 Saline Flush FLUSH ASDIRECTED PRN Keep Vein Open Sodium Chloride 2.5 ml 08/20/17 16:44 Saline Flush FLUSH ASDIRECTED PRN Keep Vein Open Discontinued Medications Generic Name Dose Route Start Last Admin Trade Name Freq PRN Reason Stop Dose Admin Adenosine 6 mg 08/20/17 16:43 Adenocard IVPUSH 08/20/17 16:44 NOW ONE Adenosine Confirm 08/20/17 16:44 Adenocard Administered 08/20/17 16:45 Dose 18 mg .ROUTE .STK-MED ONE Departure - Departure Time of Disposition: 18:03 Disposition: Home, Self-Care 01 Condition: Good Clinical Impression: SVT (supraventricular tachycardia) Referrals: PCP,Unknown [Primary Care Provider] - Forms: ED Department Discharge Additional Instructions: The following information is given to patients seen in the emergency department who are being discharged to home. This information is to outline your options for follow-up care. We provide all patients seen in our emergency department with a follow-up referral. The need for follow-up, as well as the timing and circumstances, are variable depending upon the specifics of your emergency department visit. If you don't have a primary care physician on staff, we will provide you with a referral. We always advise you to contact your personal physician following an emergency department visit to inform them of the circumstance of the visit and for follow-up with them and/or the need for any referrals to a consulting specialist. The emergency department will also refer you to a specialist when appropriate. This referral assures that you have the opportunity for follow-up care with a specialist. All of these measure are taken in an effort to provide you with optimal care, which includes your follow-up. Under all circumstances we always encourage you to contact your private physician who remains a resource for coordinating your care. When calling for follow-up care, please make the office aware that this follow-up is from your recent emergency room visit. If for any reason you are refused follow-up, please contact the [facility] Emergency Department at and asked to speak to the emergency department charge nurse. [facility] Primary [facility] [address] [place] [address] - My Orders Last 24 Hours: My Active Orders 08/20/17 16:44 EKG Documentation Completion [RC] STAT Sodium Chloride 0.9% [Saline Flush] 10 ml FLUSH ASDIRECTED PRN Sodium Chloride 0.9% [Saline Flush] 2.5 ml FLUSH ASDIRECTED PRN Saline Lock Insert [OM.PC] Stat 08/20/17 16:55 EKG Documentation Completion [RC] STAT - Assessment/Plan Last 24 Hours: My Active Orders 08/20/17 16:44 EKG Documentation Completion [RC] STAT Sodium Chloride 0.9% [Saline Flush] 10 ml FLUSH ASDIRECTED PRN Sodium Chloride 0.9% [Saline Flush] 2.5 ml FLUSH ASDIRECTED PRN Saline Lock Insert [OM.PC] Stat 08/20/17 16:55 EKG Documentation Completion [RC] STAT
[2017-08-20 17:45] LABS: CHLORIDE,CL 110 mmol/L (98-110); SODIUM,NA 140 mmol/L (136-146)
[2017-08-20 18:22] VITALS: BP 155/98
== END 2017-08-20 18:20 | disposition home or self-care (01) ==
LOC: MW.ED 16:38
DX: I47.1 Supraventricular tachycardia (principal); F17.210 Nicotine dependence, cigarettes, uncomplicated; Z88.5 Allergy status to narcotic agent
CPT/HCPCS: 36415; 80048; 93005; 96374; 99285; J0153; 99284

== ENCOUNTER 2017-10-13 20:52 | Inpatient (IN) | payer OTHER ==
[2017-10-13] MEDS ORDERED: Adenosine 6 MG/2 ML SDV ONE ×2 (20:56→21:00)
[2017-10-13] MEDS ORDERED: Ondansetron 4 MG/2 ML SDV ONE (20:58)
[2017-10-13] MEDS ORDERED: Sodium Chloride 0.9% 2.5 ML Syringe FLUSH PRN (21:03)
[2017-10-13] MEDS ORDERED: Sodium Chloride 0.9% 10 ML Syringe FLUSH PRN (21:03)
[2017-10-13] MEDS ORDERED: Sodium Chloride 0.9% 1,000 ML IV ONE (21:03)
[2017-10-13] MEDS ORDERED: Adenosine 6 MG/2 ML SDV IVPUSH ONE (21:12)
--- NOTE | 2017-10-13 21:15 | EDM.PDOC ---
ED HPI GENERAL MEDICAL PROBLEM - General Chief Complaint: Cardiovascular Problem Stated Complaint: HEART RACING Time Seen by Provider: 10/13/17 21:05 - History of Present Illness INITIAL COMMENTS - FREE TEXT/NARRATIVE: HISTORY AND PHYSICAL: History of present illness: The patient is a 52-year-old female who is well known to me in the ED for multiple visits for SVT and presents tonight with sudden onset of SVT about 20 minutes prior to coming to the ED. The patient does not note any trigger but says she has reduced her smoking and only smoked 3 or 4 cigarettes a day versus her usual half a pack and she did drink caffeine but not as much as usual. She says she has not hydrated very much but has been eating normally. Prior to these events she had no systemic complaints of chest pain shortness of breath fever chills vomiting or diarrhea and denies . In the past the patient has presented to the ED and has received adenosine 12 mg and has converted. 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 mace but she says she is currently on no medications. Per my observation and prior visits with the patient, she has not very compliant with her disease process as well as follow-up. Currently she feels nauseated and is having some dry heaves and her heart is racing and is lightheaded. She did not pass out or blackout prior to coming here Review of systems: As per history of present illness and below otherwise all systems reviewed and negative. Past medical history: As per history of present illness and as reviewed below otherwise noncontributory. Surgical history: As per history of present illness and as reviewed below otherwise noncontributory. Social history: No reported history of drug or alcohol abuse. Family history: As per history of present illness and as reviewed below otherwise noncontributory. Physical exam: General: Well-developed overweight female who is nontoxic and speaking clearly to me in the ED. Vital signs are noted by me HEENT: Atraumatic, normocephalic, pupils reactive, negative for conjunctival pallor or scleral icterus, mucous membranes tacky throat clear, neck supple, nontender, trachea midline. Lungs: Clear to auscultation, breath sounds equal bilaterally, chest nontender. Heart: S1S2, very rapid heart rate in the 200s on my evaluation and murmurs are unable to be appreciated due to the speed Abdomen: Soft, nondistended, nontender. NABS Pelvis: Deferred 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: Deferred. Rectal: Deferred. Extremities: Atraumatic, negative for cords or calf pain. Neurovascular unremarkable. No pedal edema and full range of motion Neuro: Awake, alert, oriented. Cranial nerves II through XII unremarkable. Cerebellum unremarkable. Motor and sensory unremarkable throughout. Exam nonfocal. Skin: No diaphoresis normal color and normal turgor Diagnostics: EKG 3 CBC CMP magnesium chest x-ray troponin During prior ER visits which have been multiple patient has had thyroid studies done so I will not perform these Therapeutics: IV O2 monitor IV fluids Zofran adenosine Cardizem bolus and drip aspirin Lovenox After the patient was given 12 mg of adenosine she had a very notable positive in her rhythm and restarted at a sinus rhythm which was initially in the 90s and does bounce up to the 110s to 130s intermittently. We will continue to monitor this heart rate. 2230: With the heart rate slowing down to the 120s 130s we are able to repeat an EKG which shows atrial fibrillation. This is a new heart rhythm for this patient and have discussed it with her. I will discuss this case with our hospitalist and place the patient on a Cardizem drip. The patient does need to be admitted to the hospital as in the past she has only had SVT and never had A. fib with RVR. She is tearful but agreeable 2237: Case is discussed with our hospitalist Dr. Wright who agrees with a Cardizem drip aspirin and would like a dose of Lovenox to be given. He has physically told me that if the patient's troponin is elevated he feels the patient merits transfer and if it is not elevated he will admit the patient here. 2300: Troponin is negative so the patient will be admitted to the ICU on a Cardizem drip Critical care time excluding procedures:35min Impression: SVT recurrent with history of same, converted, new onset A. fib with RVR Definitive disposition and diagnosis as appropriate pending reevaluation and review of above. - Related Data Allergies Allergy/AdvReac Type Severity Reaction Status Date / Time codeine Allergy Abdominal Verified 10/13/17 21:09 Pain Home Meds: Home Meds . 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: Musculoskeletal History: Reports: None Neurological History: Reports: None Psychiatric History: Reports: None Endocrine/Metabolic History: Reports: None Hematologic History: Reports: None Immunologic History: Reports: None Oncologic (Cancer) History: Reports: None Dermatologic History: Reports: None - Infectious Disease History Infectious Disease History: Reports: Chicken Pox, Rubella - Past Surgical History Head Surgeries/Procedures: Reports: None Cardiovascular Surgical History: Reports: None GI Surgical History: Reports: Appendectomy, Cholecystectomy Endocrine Surgical History: Reports: None Neurological Surgical History: Reports: None Musculoskeletal Surgical History: Reports: None Social & Family History - Family History Family Medical History: Noncontributory - Tobacco Use Smoking Status *Q: Current Every Day Smoker Years of Tobacco use: 15 Packs/Tins Daily: 1 Second Hand Smoke Exposure: No - Caffeine Use Caffeine Use: Reports: Coffee, Soda - Recreational Drug Use Recreational Drug Use: No ED ROS GENERAL - Review of Systems Review Of Systems: ROS reveals no pertinent complaints other than HPI. ED EXAM, GENERAL - Physical Exam Exam: See Below (See dictation) Course - Vital Signs Last Recorded V/S: Last Vital Signs Temp 36.1 C 10/13/17 20:52 Pulse 130 H 10/13/17 22:59 Resp 18 10/13/17 22:59 BP 148/78 H 10/13/17 22:59 Pulse Ox 97 10/13/17 22:59 - Orders/Labs/Meds Orders: Active Orders 24 hr Category Date Time Status Patient Status [ADT] Stat ADT 10/13/17 22:59 Ordered Cardiac Monitoring [RC] . DIRECTED Care 10/13/17 21:03 Active EKG 12 Lead [EKG Documentation Completion] [RC] STAT Care 10/13/17 21:20 Active EKG Documentation Completion [RC] STAT Care 10/13/17 21:03 Active EKG Documentation Completion [RC] STAT Care 10/13/17 21:57 Active Oxygen Therapy, ED [RC] ASDIRECTED Care 10/13/17 21:03 Active Pulse Oximetry [RC] ASDIRECTED Care 10/13/17 21:03 Active Chest 1V Frontal [CR] Stat Exams 10/13/17 21:18 Taken Diltiazem 100 mg Med 10/13/17 23:01 Active Sodium Chloride 0.9% [Normal Saline] 80 ml IV NOW Sodium Chloride 0.9% [Saline Flush] Med 10/13/17 21:03 Active 10 ml FLUSH ASDIRECTED PRN Sodium Chloride 0.9% [Saline Flush] Med 10/13/17 21:03 Active 2.5 ml FLUSH ASDIRECTED PRN Saline Lock Insert [OM.PC] Stat Oth 10/13/17 21:03 Ordered Medication Orders Diltiazem HCl 100 mg/ Sodium (Chloride) 100 mls @ 10 mls/hr IV NOW ONE Stop: 10/14/17 08:59 Sodium Chloride (Saline Flush) 10 ml FLUSH ASDIRECTED PRN PRN Reason: Keep Vein Open Sodium Chloride (Saline Flush) 2.5 ml FLUSH ASDIRECTED PRN PRN Reason: Keep Vein Open Labs: Laboratory Tests 10/13/17 10/13/17 10/13/17 Range/Units 21:00 21:20 21:20 WBC 11.64 H (4.0-11.0) K/uL RBC 4.86 (4.30-5.90) M/uL Hgb 14.7 (12.0-16.0) g/dL Hct 42.1 (36.0-46.0) % MCV 86.6 (80.0-98.0) fL MCH 30.2 (27.0-32.0) pg MCHC 34.9 (31.0-37.0) g/dL RDW Std Deviation 43.1 (28.0-62.0) fl RDW Coeff of Itz 14 (11.0-15.0) % Plt Count 346 (150-400) K/uL MPV 10.00 (7.40-12.00) fL Neut % (Auto) 51.6 (48.0-80.0) % Lymph % (Auto) 35.8 (16.0-40.0) % [place] % (Auto) 10.1 (0.0-15.0) % Eos % (Auto) 2.2 (0.0-7.0) % Baso % (Auto) 0.3 (0.0-1.5) % Neut # (Auto) 6.0 H (1.4-5.7) K/uL Lymph # (Auto) 4.2 H (0.6-2.4) K/uL [place] # (Auto) 1.2 H (0.0-0.8) K/uL Eos # (Auto) 0.3 (0.0-0.7) K/uL Baso # (Auto) 0.0 (0.0-0.1) K/uL Nucleated RBC % 0.0 /100WBC Nucleated RBCs # 0 K/uL Sodium 140 (136-145) mmol/L Potassium 3.6 (3.5-5.1) mmol/L Chloride 105 (98-107) mmol/L Carbon Dioxide 25.3 (21.0-32.0) mmol/L BUN 20 H (7.0-18.0) mg/dL Creatinine 0.9 (0.6-1.0) mg/dL Est Cr Clr Drug Dosing 72.92 mL/min Estimated GFR (MDRD) > 60.0 ml/min Glucose 151 H (74-106) mg/dL Calcium 8.5 (8.5-10.1) mg/dL Magnesium 1.6 (1.5-2.0) mg/dL Total Bilirubin 0.3 (0.2-1.0) mg/dL AST 27 (15-37) IU/L ALT 51 (14-63) IU/L Alkaline Phosphatase 146 H (46-116) U/L Troponin I < 0.050 (0.000-0.056) ng/mL Total Protein 6.3 L (6.4-8.2) g/dL Albumin 3.3 L (3.4-5.0) g/dL Globulin 3.0 (2.0-3.5) g/dL Albumin/Globulin Ratio 1.1 L (1.3-2.8) Meds: Medications Generic Name Dose Route Start Last Admin Trade Name Freq PRN Reason Stop Dose Admin Diltiazem HCl 100 mg/ Sodium 100 mls @ 10 mls/hr 10/13/17 23:01 Chloride IV 10/14/17 08:59 NOW ONE Sodium Chloride 10 ml 10/13/17 21:03 Saline Flush FLUSH ASDIRECTED PRN Keep Vein Open Sodium Chloride 2.5 ml 10/13/17 21:03 Saline Flush FLUSH ASDIRECTED PRN Keep Vein Open Discontinued Medications Generic Name Dose Route Start Last Admin Trade Name Jerry PRN Reason Stop Dose Admin Adenosine Confirm 10/13/17 20:56 10/13/17 21:12 Adenocard Administered 10/13/17 20:57 Not Given Dose 6 mg .ROUTE .STK-MED ONE Adenosine Confirm 10/13/17 21:00 10/13/17 21:13 Adenocard Administered 10/13/17 21:01 Not Given Dose 6 mg .ROUTE .STK-MED ONE Adenosine 12 mg 10/13/17 21:12 10/13/17 21:14 Adenocard IVPUSH 10/13/17 21:13 12 mg NOW ONE Administration Aspirin 324 mg 10/13/17 22:33 Aspirin PO 10/13/17 22:34 ONETIME ONE Diltiazem HCl 10 mg 10/13/17 21:17 10/13/17 21:21 Diltiazem IVPUSH 10/13/17 21:18 10 mg ONETIME ONE Administration Diltiazem HCl Confirm 10/13/17 21:18 10/13/17 21:22 Diltiazem Administered 10/13/17 21:19 Not Given Dose 25 mg .ROUTE .STK-MED ONE Diltiazem HCl 10 mg 10/13/17 21:34 10/13/17 21:38 Diltiazem IVPUSH 10/13/17 21:35 10 mg ONETIME ONE Administration Enoxaparin Sodium 120 mg 10/13/17 22:39 Lovenox SUBCUT 10/13/17 22:40 ONETIME ONE Sodium Chloride 1,000 mls @ 999 mls/hr 10/13/17 21:03 10/13/17 21:00 Normal Saline IV 10/13/17 22:03 999 mls/hr STAT ONE Administration Diltiazem HCl 100 mg/ Sodium 120 mls @ 10 mls/hr 10/13/17 23:00 Chloride IV 10/14/17 10:59 NOW ONE Metoprolol Tartrate 5 mg 10/13/17 21:16 10/13/17 21:25 Lopressor IVPUSH 10/13/17 21:17 Not Given ONETIME ONE Ondansetron HCl Confirm 10/13/17 20:58 10/13/17 20:59 Zofran Administered 10/13/17 20:59 4 mg Dose Administration 4 mg .ROUTE .STK-MED ONE Departure - Departure Time of Disposition: 23:02 Disposition: Admitted As Inpatient 65 Condition: Good Clinical Impression: SVT (supraventricular tachycardia), Atrial fibrillation with RVR Referrals: PCP,None [Primary Care Provider] - Forms: ED Department Discharge - My Orders Last 24 Hours: My Active Orders 10/13/17 21:03 Cardiac Monitoring [RC] . DIRECTED EKG Documentation Completion [RC] STAT Oxygen Therapy, ED [RC] ASDIRECTED Pulse Oximetry [RC] ASDIRECTED Sodium Chloride 0.9% [Saline Flush] 10 ml FLUSH ASDIRECTED PRN Sodium Chloride 0.9% [Saline Flush] 2.5 ml FLUSH ASDIRECTED PRN Saline Lock Insert [OM.PC] Stat 10/13/17 21:18 Chest 1V Frontal [CR] Stat 10/13/17 21:20 EKG 12 Lead [EKG Documentation Completion] [RC] STAT 10/13/17 21:57 EKG Documentation Completion [RC] STAT 10/13/17 22:59 Patient Status [ADT] Stat 10/13/17 23:01 Diltiazem 100 mg Sodium Chloride 0.9% [Normal Saline] 80 ml IV NOW - Assessment/Plan Last 24 Hours: My Active Orders 10/13/17 21:03 Cardiac Monitoring [RC] . DIRECTED EKG Documentation Completion [RC] STAT Oxygen Therapy, ED [RC] ASDIRECTED Pulse Oximetry [RC] ASDIRECTED Sodium Chloride 0.9% [Saline Flush] 10 ml FLUSH ASDIRECTED PRN Sodium Chloride 0.9% [Saline Flush] 2.5 ml FLUSH ASDIRECTED PRN Saline Lock Insert [OM.PC] Stat 10/13/17 21:18 Chest 1V Frontal [CR] Stat 10/13/17 21:20 EKG 12 Lead [EKG Documentation Completion] [RC] STAT 10/13/17 21:57 EKG Documentation Completion [RC] STAT 10/13/17 22:59 Patient Status [ADT] Stat 10/13/17 23:01 Diltiazem 100 mg Sodium Chloride 0.9% [Normal Saline] 80 ml IV NOW
[2017-10-13] MEDS ORDERED: Metoprolol Tartrate 5 MG/5 ML SDV IVPUSH ONE (21:16)
[2017-10-13] MEDS ORDERED: Diltiazem 25 MG/5 ML SDV IVPUSH ONE ×2 (21:17→21:34)
[2017-10-13] MEDS ORDERED: Diltiazem 25 MG/5 ML SDV ONE (21:18)
[2017-10-13 21:49] LABS: CHLORIDE,CL 105 mmol/L (98-107); SODIUM,NA 140 mmol/L (136-145)
[2017-10-13] MEDS ORDERED: Aspirin 81 MG Tab.Chew PO ONE (22:33)
[2017-10-13] MEDS ORDERED: Enoxaparin 150 MG/1 ML Syringe SUBCUT ONE (22:39)
[2017-10-13] MEDS ORDERED: Diltiazem 100 MG in Sodium Chloride 0.9% 100 ML IV ONE (23:00)
[2017-10-13] MEDS ORDERED: LORazepam 2 MG/ML SDV IVPUSH ONE (23:23)
[2017-10-14] MEDS ORDERED: Ondansetron 4 MG/2 ML SDV IVPUSH PRN (00:24)
[2017-10-14] MEDS ORDERED: Magnesium Sulfate/Water 2 GM in Premix Bag 1 BAG IV ONE (01:49)
[2017-10-14] MEDS ORDERED: Digoxin 500 MCG/2 ML Amp IVPUSH ONE (01:49)
[2017-10-14] MEDS ORDERED: Ondansetron 4 MG Tab.DIS PO PRN (01:50)
--- NOTE | 2017-10-14 01:59 | PCM.HP ---
H&P History of Present Illness - General Admit Problem/Dx: Admission Diagnosis/Problem Admission Diagnosis/Problem Atrial fibrillation with rapid ventricular response - History of Present Illness Initial Comments - Free Text/Narative: 52 yo female with pmh of SVT who presents to the ED with palpitations. She reported racing heart for 20 minutes prir to arrival to the ED. In the ED she was noted to be in SVT in the 200s she was given adenosine and converted to an atrial fibrilaltion with heart rate in the 120s. Patient has stopped taking her metoprolol a a year ago. She reports palpitations 2-3 times a week. She denies any shortness of breath or chest pain. denies pain Pain Score (Numeric/FACES): 0 Left Arm Pain Score (Numeric/FACES): 10 - Related Data Allergies/Adverse Reactions: Allergies Allergy/AdvReac Type Severity Reaction Status Date / Time codeine Allergy Abdominal Verified 10/13/17 21:09 Pain Home Medications: Home Meds RX: Aspirin 325 mg PO DAILY #30 tablet 10/14/17 [Rx] RX: Metoprolol Tartrate [Lopressor] 25 mg PO Q12HR #60 tablet 10/14/17 [Rx] Past Medical History - Past Health History Medical/Surgical History: Denies Medical/Surgical History HEENT History: Reports: None Cardiovascular History: Reports: Arrhythmia, Other (See Below) Other Cardiovascular History: SVT Respiratory History: Reports: None Gastrointestinal History: Reports: None 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 History: Reports: None 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: Musculoskeletal History: Reports: None Neurological History: Reports: None Psychiatric History: Reports: None Endocrine/Metabolic History: Reports: None Hematologic History: Reports: None Immunologic History: Reports: None Oncologic (Cancer) History: Reports: None Dermatologic History: Reports: None - Infectious Disease History Infectious Disease History: Reports: Chicken Pox, Rubella - Past Surgical History Head Surgeries/Procedures: Reports: None Cardiovascular Surgical History: Reports: None GI Surgical History: Reports: Appendectomy, Cholecystectomy Endocrine Surgical History: Reports: None Neurological Surgical History: Reports: None Musculoskeletal Surgical History: Reports: None Social & Family History - Family History Family Medical History: Noncontributory - Tobacco Use Smoking Status *Q: Current Every Day Smoker Years of Tobacco use: 32 Packs/Tins Daily: 0 Used Tobacco, but Quit: No Second Hand Smoke Exposure: Yes - Caffeine Use Caffeine Use: Reports: Soda - Recreational Drug Use Recreational Drug Use: No H&P Review of Systems - Review of Systems: Review Of Systems: ROS reveals no pertinent complaints other than HPI. Gastrointestinal: Reports: Hematemesis, Hematochezia, Melena Exam - Exam Exam: See Below - Vital Signs Vital Signs: Last Vital Signs Temp 36.1 C 10/13/17 20:52 Pulse 130 H 10/13/17 22:59 Resp 18 10/13/17 22:59 BP 148/78 H 10/13/17 22:59 Pulse Ox 97 10/13/17 22:59 Weight: 113.5 kg - Exam General: Alert, Oriented HEENT: Mucosa Moist & [place] Neck: Supple, Trachea Midline Lungs: Clear to Auscultation, Normal Respiratory Effort Cardiovascular: Irregular Rhythm, Tachycardia GI/Abdominal Exam: Normal Bowel Sounds, Soft, Non-Tender, No Distention Extremities: Non-Tender, No Pedal Edema Skin: Warm, Dry, Intact Neurological: No: Focal Deficit - Patient Data Lab Results Last 24 hrs: Laboratory Results - last 24 hr 10/13/17 10/13/17 10/13/17 Range/Units 21:00 21:20 21:20 WBC 11.64 H (4.0-11.0) K/uL RBC 4.86 (4.30-5.90) M/uL Hgb 14.7 (12.0-16.0) g/dL Hct 42.1 (36.0-46.0) % MCV 86.6 (80.0-98.0) fL MCH 30.2 (27.0-32.0) pg MCHC 34.9 (31.0-37.0) g/dL RDW Std Deviation 43.1 (28.0-62.0) fl RDW Coeff of Itz 14 (11.0-15.0) % Plt Count 346 (150-400) K/uL MPV 10.00 (7.40-12.00) fL Neut % (Auto) 51.6 (48.0-80.0) % Lymph % (Auto) 35.8 (16.0-40.0) % [place] % (Auto) 10.1 (0.0-15.0) % Eos % (Auto) 2.2 (0.0-7.0) % Baso % (Auto) 0.3 (0.0-1.5) % Neut # (Auto) 6.0 H (1.4-5.7) K/uL Lymph # (Auto) 4.2 H (0.6-2.4) K/uL [place] # (Auto) 1.2 H (0.0-0.8) K/uL Eos # (Auto) 0.3 (0.0-0.7) K/uL Baso # (Auto) 0.0 (0.0-0.1) K/uL Nucleated RBC % 0.0 /100WBC Nucleated RBCs # 0 K/uL Sodium 140 (136-145) mmol/L Potassium 3.6 (3.5-5.1) mmol/L Chloride 105 (98-107) mmol/L Carbon Dioxide 25.3 (21.0-32.0) mmol/L BUN 20 H (7.0-18.0) mg/dL Creatinine 0.9 (0.6-1.0) mg/dL Est Cr Clr Drug Dosing 72.92 mL/min Estimated GFR (MDRD) > 60.0 ml/min Glucose 151 H (74-106) mg/dL Calcium 8.5 (8.5-10.1) mg/dL Magnesium 1.6 (1.5-2.0) mg/dL Total Bilirubin 0.3 (0.2-1.0) mg/dL AST 27 (15-37) IU/L ALT 51 (14-63) IU/L Alkaline Phosphatase 146 H (46-116) U/L Troponin I < 0.050 (0.000-0.056) ng/mL Total Protein 6.3 L (6.4-8.2) g/dL Albumin 3.3 L (3.4-5.0) g/dL Globulin 3.0 (2.0-3.5) g/dL Albumin/Globulin Ratio 1.1 L (1.3-2.8) Result Diagrams: 10/14/17 05:47 10/14/17 05:47 Problem List Initiated/Reviewed/Updated: Yes Orders Last 24hrs: Active Orders 24 hr Category Date Time Status Patient Status [ADT] Stat ADT 10/13/17 22:59 Active Oxygen Therapy [RC] PRN Care 10/14/17 01:50 Ordered Oxygen Therapy, ED [RC] ASDIRECTED Care 10/13/17 21:03 Active Pulse Oximetry [RC] ASDIRECTED Care 10/13/17 21:03 Active Up ad Destiny [RC] ASDIRECTED Care 10/14/17 01:50 Ordered VTE/DVT Education [RC] PER UNIT ROUTINE Care 10/14/17 01:50 Ordered Vital Signs [RC] Q4H Care 10/14/17 01:50 Ordered Heart Healthy Diet [DIET] Diet 10/14/17 Breakfast Active Chest 1V Frontal [CR] Stat Exams 10/13/17 21:18 Taken BASIC METABOLIC PANEL,BMP [CHEM] Routine Lab 10/14/17 05:00 Ordered CBC WITH AUTO DIFF [HEME] Routine Lab 10/14/17 05:00 Ordered MAGNESIUM [CHEM] Routine Lab 10/14/17 05:00 Ordered Diltiazem 100 mg Med 10/14/17 00:30 Active Sodium Chloride 0.9% [Normal Saline] 80 ml IV ASDIRECTED Magnesium Sulfate/Water [Magnesium Sulfate 2 GM in Med 10/14/17 01:49 Ordered Water 50 ML] 2 gm Premix Bag 1 bag IV ONETIME Metoprolol Tartrate [Lopressor] Med 10/14/17 01:49 Ordered 25 mg PO Q12HR Ondansetron [Zofran ODT] Med 10/14/17 01:50 Ordered 4 mg PO Q4H PRN Ondansetron [Zofran] Med 10/14/17 00:24 Active 4 mg IVPUSH Q3H PRN Sodium Chloride 0.9% [Saline Flush] Med 10/13/17 21:03 Active 10 ml FLUSH ASDIRECTED PRN Sodium Chloride 0.9% [Saline Flush] Med 10/13/17 21:03 Active 2.5 ml FLUSH ASDIRECTED PRN Sodium Chloride 0.9% with KCl 40 mEq @ Enter Rate (1000 Med 10/14/17 02:00 Ordered mL) Sodium Chloride 0.9% with KCl [Normal Saline with 40 mEq KCl] 1,000 ml IV ASDIRECTED Saline Lock Insert [OM.PC] Stat Oth 10/13/17 21:03 Ordered Sequential Compression Device [OM.PC] Per Unit Routine Oth 10/14/17 01:50 Ordered Resuscitation Status Routine Resus Stat 10/14/17 01:50 Ordered Medication Orders Diltiazem HCl 100 mg/ Sodium (Chloride) 100 mls @ 10 mls/hr IV ASDIRECTED ONE; Protocol Stop: 10/14/17 10:19 Last Titration: 10/14/17 00:36 Dose: 15 mg/hr, 15 mls/hr Admin: 10/14/17 00:36 Dose: 10 mg/hr, 10 mls/hr Magnesium Sulfate 2 gm/ Premix 50 mls @ 50 mls/hr IV ONETIME ONE Stop: 10/14/17 02:48 Potassium Chloride/Sodium Chloride (Normal Saline With 40 Meq Kcl) 1,000 mls @ 150 mls/hr IV ASDIRECTED ALEJANDRA Stop: 10/14/17 08:39 Metoprolol Tartrate (Lopressor) 25 mg PO Q12HR ALEJANDRA Ondansetron HCl (Zofran) 4 mg IVPUSH Q3H PRN PRN Reason: Nausea/Vomiting Sodium Chloride (Saline Flush) 10 ml FLUSH ASDIRECTED PRN PRN Reason: Keep Vein Open Sodium Chloride (Saline Flush) 2.5 ml FLUSH ASDIRECTED PRN PRN Reason: Keep Vein Open Assessment/Plan Comment:: 52 yo female who presented with very fast SVT which converted to atrial fibrillations with RVR after adenosine. Patient was treated with IV fluids with potassium. She was placed on a diltiazem drip overnight and metoprolol was started at 25mg BID. This morning patient has converted to normal sinus rhythm. Patient is requesting discharge. We will discharge the patient home with new medications of metoprolol 25mg BID and aspirin 325mg daily. Patient is to follow up with [facility].
[2017-10-14] MEDS ORDERED: Sodium Chloride 0.9% with KCl 1,000 ML IV SCH (02:00)
[2017-10-14] MEDS: Metoprolol Tartrate 25 MG Tab PO SCH ×2 (02:14→08:16)
[2017-10-14 07:01] LABS: CHLORIDE,CL 108 mmol/L (98-107); SODIUM,NA 139 mmol/L (136-145)
[2017-10-14 08:16] VITALS: BP 100/55
--- NOTE | 2017-10-16 09:45 | CR ---
EXAM DATE: 10/13/17 PATIENT'S AGE: 52 Patient: MIKE COMBS Facility: [place], [place] Site . Site : [id number] Study: XRay Chest [id number] 9:39:31 PM Ordering Physician: Jess Bland Final Report: INDICATION: Tachycardia, dehydration. TECHNIQUE: Chest radiograph 1 view COMPARISON: None FINDINGS: Cardiovascular and mediastinum: Heart and mediastinal contours are stable from prior study. The heart size is upper range of normal. Lungs and pleural spaces: Both lungs are unremarkable in appearance. No sign of pleural effusion seen. No pneumothorax is identified. Bones and soft tissues: No significant findings. IMPRESSION: 1. No acute cardiopulmonary disease is seen. No acute interval change from 01/16 Dictated by Alessandro De Leon MD @ 10/13/2017 9:46:41 PM Dictated by: Alessandro De Leon MD @ 10/13/2017 21:46:50 (Electronic Signature) Report Signed by Proxy. [facility]
== END 2017-10-14 13:09 | disposition home or self-care (01) | DRG 310 ==
LOC: MW.ED 20:52 → MW.ICU 22:59
PROVIDERS: ADMIT Internal Medicine; ATTEND Internal Medicine
DX: I48.91 Unspecified atrial fibrillation (principal); I47.1 Supraventricular tachycardia; F17.210 Nicotine dependence, cigarettes, uncomplicated; Z88.8 Allergy status to other drugs, medicaments and biological substances; Z79.899 Other long term (current) drug therapy; Z79.82 Long term (current) use of aspirin
CPT/HCPCS: 36415; 71045; 71045-26; 80048; 80053; 83735; 84100; 84443; 84484; 85025; 93005; 96361; 96365; 96372; 96375; 96376; 99284; 99285-25; A9270-GY; J0153; J1160; J1650; J2060; J2405; J3475; J3480; J3490; J7030; J7040

== ENCOUNTER 2018-01-22 14:10 | Emergency (ER) | payer OTHER ==
[2018-01-22] MEDS ORDERED: Adenosine 6 MG/2 ML SDV ONE ×2 (14:14→14:26)
[2018-01-22] MEDS ORDERED: Sodium Chloride 0.9% 10 ML Syringe FLUSH PRN (14:34)
[2018-01-22] MEDS ORDERED: Sodium Chloride 0.9% 2.5 ML Syringe FLUSH PRN (14:34)
--- NOTE | 2018-01-22 14:35 | EDM.PDOC ---
ED HPI GENERAL MEDICAL PROBLEM - General Stated Complaint: RACING HEART Time Seen by Provider: 01/22/18 14:13 Source of Information: Reports: Patient History Limitations: Reports: No Limitations - History of Present Illness INITIAL COMMENTS - FREE TEXT/NARRATIVE: History of present illness: []Patient has a history of SVT that does not respond to 6 mg of adenosine but usually responds to 12 g. She is followed by Dr. Gonzalez but has not had ablation. About 1:15 today she felt herself go into SVT into tried multiple maneuvers during Valsalva to alleviate the symptoms but did not work. She denies shortness of breath, chest pain, dizziness, lightheadedness Review of systems: As per history of present illness and below otherwise all systems reviewed and negative. Past medical history: As per history of present illness and as reviewed below otherwise noncontributory. Surgical history: As per history of present illness and as reviewed below otherwise noncontributory. Social history: No reported history of drug or alcohol abuse. Family history: As per history of present illness and as reviewed below otherwise noncontributory. Physical exam: General: Well developed, well nourished in NAD HEENT: Atraumatic, normocephalic, pupils reactive, negative for conjunctival pallor or scleral icterus, mucous membranes moist, throat clear, neck supple, nontender, trachea midline. Lungs: Clear to auscultation, breath sounds equal bilaterally, chest nontender. Heart: Tachycardic regular Abdomen: Soft, nondistended, nontender. Negative for masses or hepatosplenomegaly. Negative for costovertebral tenderness. Pelvis: Stable nontender. 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: Deferred. Rectal: Deferred. Extremities: Atraumatic, negative for cords or calf pain. Neurovascular unremarkable. Neuro: Awake, alert, oriented. Cranial nerves II through XII unremarkable. Cerebellum unremarkable. Motor and sensory unremarkable throughout. Exam nonfocal. Diagnostics: []EKG showing SVT at a rate of 208 Therapeutics: []12 mg of adenosine given without response followed by repeat 12 more milligrams which slowed her rate down into the 90s Impression: []SVT with chemical conversion Plan: []Follow-up with cardiology Definitive disposition and diagnosis as appropriate pending reevaluation and review of above. - Related Data Allergies Allergy/AdvReac Type Severity Reaction Status Date / Time codeine Allergy Abdominal Verified 01/22/18 15:04 Pain Home Meds: Home Meds . 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: Musculoskeletal History: Reports: None Neurological History: Reports: None Psychiatric History: Reports: None Endocrine/Metabolic History: Reports: None Hematologic History: Reports: None Immunologic History: Reports: None Oncologic (Cancer) History: Reports: None Dermatologic History: Reports: None - Infectious Disease History Infectious Disease History: Reports: Chicken Pox, Rubella - Past Surgical History Head Surgeries/Procedures: Reports: None Cardiovascular Surgical History: Reports: None GI Surgical History: Reports: Appendectomy, Cholecystectomy Endocrine Surgical History: Reports: None Neurological Surgical History: Reports: None Musculoskeletal Surgical History: Reports: None Social & Family History - Family History Family Medical History: Noncontributory - Caffeine Use Caffeine Use: Reports: Soda ED ROS GENERAL - Review of Systems Review Of Systems: ROS reveals no pertinent complaints other than HPI. ED EXAM, GENERAL - Physical Exam Exam: See Below (See history of present illness) Course - Vital Signs Last Recorded V/S: Last Vital Signs Temp 97.0 F 01/22/18 14:58 Pulse 216 H 01/22/18 14:58 Resp 22 H 01/22/18 14:58 BP 96/43 L 01/22/18 14:58 Pulse Ox 97 01/22/18 14:58 - Orders/Labs/Meds Orders: Active Orders 24 hr Category Date Time Status EKG 12 Lead [EKG Documentation Completion] [RC] STAT Care 01/22/18 14:56 Active Sodium Chloride 0.9% [Saline Flush] Med 01/22/18 14:34 Active 10 ml FLUSH ASDIRECTED PRN Sodium Chloride 0.9% [Saline Flush] Med 01/22/18 14:34 Active 2.5 ml FLUSH ASDIRECTED PRN Saline Lock Insert [OM.PC] Stat Oth 01/22/18 14:34 Ordered Medication Orders Sodium Chloride (Saline Flush) 10 ml FLUSH ASDIRECTED PRN PRN Reason: Keep Vein Open Last Admin: 01/22/18 15:03 Dose: 10 ml Sodium Chloride (Saline Flush) 2.5 ml FLUSH ASDIRECTED PRN PRN Reason: Keep Vein Open Last Admin: 01/22/18 15:03 Dose: 2.5 ml Labs: Laboratory Tests 01/22/18 01/22/18 Range/Units 14:30 14:30 WBC 10.02 (4.0-11.0) K/uL RBC 5.33 (4.30-5.90) M/uL Hgb 16.4 H (12.0-16.0) g/dL Hct 46.0 (36.0-46.0) % MCV 86.3 (80.0-98.0) fL MCH 30.8 (27.0-32.0) pg MCHC 35.7 (31.0-37.0) g/dL RDW Std Deviation 42.6 (28.0-62.0) fl RDW Coeff of Itz 14 (11.0-15.0) % Plt Count 382 (150-400) K/uL MPV 10.20 (7.40-12.00) fL Neut % (Auto) 59.6 (48.0-80.0) % Lymph % (Auto) 31.0 (16.0-40.0) % [place] % (Auto) 7.5 (0.0-15.0) % Eos % (Auto) 1.6 (0.0-7.0) % Baso % (Auto) 0.3 (0.0-1.5) % Neut # (Auto) 6.0 H (1.4-5.7) K/uL Lymph # (Auto) 3.1 H (0.6-2.4) K/uL [place] # (Auto) 0.8 (0.0-0.8) K/uL Eos # (Auto) 0.2 (0.0-0.7) K/uL Baso # (Auto) 0.0 (0.0-0.1) K/uL Nucleated RBC % 0.0 /100WBC Nucleated RBCs # 0 K/uL Sodium 139 (136-145) mmol/L Potassium 4.1 (3.5-5.1) mmol/L Chloride 105 (98-107) mmol/L Carbon Dioxide 25.4 (21.0-32.0) mmol/L BUN 18 (7.0-18.0) mg/dL Creatinine 0.9 (0.6-1.0) mg/dL Est Cr Clr Drug Dosing 72.08 mL/min Estimated GFR (MDRD) > 60.0 ml/min Glucose 138 H (74-106) mg/dL Calcium 8.8 (8.5-10.1) mg/dL Total Bilirubin 0.3 (0.2-1.0) mg/dL AST 19 (15-37) IU/L ALT 51 (14-63) IU/L Alkaline Phosphatase 151 H (46-116) U/L Troponin I < 0.050 (0.000-0.056) ng/mL Total Protein 7.4 (6.4-8.2) g/dL Albumin 3.6 (3.4-5.0) g/dL Globulin 3.8 H (2.0-3.5) g/dL Albumin/Globulin Ratio 1.0 L (1.3-2.8) Meds: Medications Generic Name Dose Route Start Last Admin Trade Name Freq PRN Reason Stop Dose Admin Sodium Chloride 10 ml 01/22/18 14:34 01/22/18 15:03 Saline Flush FLUSH 10 ml ASDIRECTED PRN Administration Keep Vein Open Sodium Chloride 2.5 ml 01/22/18 14:34 01/22/18 15:03 Saline Flush FLUSH 2.5 ml ASDIRECTED PRN Administration Keep Vein Open Discontinued Medications Generic Name Dose Route Start Last Admin Trade Name Freq PRN Reason Stop Dose Admin Adenosine Confirm 01/22/18 14:14 01/22/18 15:02 Adenocard Administered 01/22/18 14:15 Not Given Dose 12 mg .ROUTE .STK-MED ONE Adenosine Confirm 01/22/18 14:26 01/22/18 15:02 Adenocard Administered 01/22/18 14:27 Not Given Dose 12 mg .ROUTE .STK-MED ONE Adenosine 12 mg 01/22/18 15:02 01/22/18 15:03 Adenocard IVPUSH 01/22/18 15:03 12 mg NOW ONE Administration Adenosine 12 mg 01/22/18 15:03 01/22/18 15:04 Adenocard IVPUSH 01/22/18 15:04 12 mg NOW ONE Administration Departure - Departure Time of Disposition: 15:17 Disposition: Home, Self-Care 01 Condition: Good Clinical Impression: SVT (supraventricular tachycardia), PSVT (paroxysmal supraventricular tachycardia) Referrals: Carri Vizcarra MD [Physician] - ( next available) Additional Instructions: The following information is given to patients seen in the emergency department who are being discharged to home. This information is to outline your options for follow-up care. We provide all patients seen in our emergency department with a follow-up referral. The need for follow-up, as well as the timing and circumstances, are variable depending upon the specifics of your emergency department visit. If you don't have a primary care physician on staff, we will provide you with a referral. We always advise you to contact your personal physician following an emergency department visit to inform them of the circumstance of the visit and for follow-up with them and/or the need for any referrals to a consulting specialist. The emergency department will also refer you to a specialist when appropriate. This referral assures that you have the opportunity for follow-up care with a specialist. All of these measure are taken in an effort to provide you with optimal care, which includes your follow-up. Under all circumstances we always encourage you to contact your private physician who remains a resource for coordinating your care. When calling for follow-up care, please make the office aware that this follow-up is from your recent emergency room visit. If for any reason you are refused follow-up, please contact the [facility] Emergency Department at and asked to speak to the emergency department charge nurse. [facility] Dr. Vizcarra. Margi [address] [place] [address] [phone] - My Orders Last 24 Hours: My Active Orders 01/22/18 14:34 Sodium Chloride 0.9% [Saline Flush] 10 ml FLUSH ASDIRECTED PRN Sodium Chloride 0.9% [Saline Flush] 2.5 ml FLUSH ASDIRECTED PRN Saline Lock Insert [OM.PC] Stat 01/22/18 14:56 EKG 12 Lead [EKG Documentation Completion] [RC] STAT - Assessment/Plan Last 24 Hours: My Active Orders 01/22/18 14:34 Sodium Chloride 0.9% [Saline Flush] 10 ml FLUSH ASDIRECTED PRN Sodium Chloride 0.9% [Saline Flush] 2.5 ml FLUSH ASDIRECTED PRN Saline Lock Insert [OM.PC] Stat 01/22/18 14:56 EKG 12 Lead [EKG Documentation Completion] [RC] STAT
[2018-01-22] MEDS ORDERED: Adenosine 6 MG/2 ML SDV IVPUSH ONE ×2 (15:02→15:03)
[2018-01-22 15:08] LABS: CHLORIDE,CL 105 mmol/L (98-107); SODIUM,NA 139 mmol/L (136-145)
[2018-01-22] MEDS ORDERED: Sodium Chloride 0.9% 1,000 ML IV ONE (15:29)
[2018-01-22 15:41] VITALS: BP 134/75
== END 2018-01-22 15:25 | disposition home or self-care (01) ==
LOC: MW.ED 14:10
DX: I47.1 Supraventricular tachycardia (principal); Z88.5 Allergy status to narcotic agent
CPT/HCPCS: 36415; 80053; 84484; 85025; 93005; 96361; 96374; 99285; J0153; J7040

== ENCOUNTER 2018-11-22 11:27 | Emergency (ER) | payer SELFPAY ==
[2018-11-22] MEDS ORDERED: Adenosine 6 MG/2 ML SDV IVPUSH ONE ×2 (11:36)
--- NOTE | 2018-11-22 11:37 | EDM.PDOC ---
ED HPI GENERAL MEDICAL PROBLEM - General Chief Complaint: Cardiovascular Problem Stated Complaint: FAST HEART RATE Time Seen by Provider: 11/22/18 11:34 - History of Present Illness INITIAL COMMENTS - FREE TEXT/NARRATIVE: HISTORY AND PHYSICAL: History of present illness: Patient's 53-year-old white female history of PSVT presents with concern of tachycardia she denies chest pain shows breath nausea vomiting dizziness or other complaints she's had many times in the past. This has responded universally to 12 mg of adenosine per the patient. Try lower dose in the past that never been effective. Review of systems: As per history of present illness and below otherwise all systems reviewed and negative. Past medical history: As per history of present illness and as reviewed below otherwise noncontributory. Surgical history: As per history of present illness and as reviewed below otherwise noncontributory. Social history: No reported history of drug or alcohol abuse. Family history: As per history of present illness and as reviewed below otherwise noncontributory. Physical exam: HEENT: Atraumatic, normocephalic, pupils reactive, negative for conjunctival pallor or scleral icterus, mucous membranes moist, throat clear, neck supple, nontender, trachea midline. Lungs: Clear to auscultation, breath sounds equal bilaterally, chest nontender. Heart: S1S2, regular, negative for clicks, rubs, or JVD. Abdomen: Soft, nondistended, nontender. Negative for masses or hepatosplenomegaly. Negative for costovertebral tenderness. Pelvis: Stable nontender. 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: Deferred. Rectal: Deferred. Extremities: Atraumatic, negative for cords or calf pain. Neurovascular unremarkable. Neuro: Awake, alert, oriented. Cranial nerves II through XII unremarkable. Cerebellum unremarkable. Motor and sensory unremarkable throughout. Exam nonfocal. Diagnostics: EKG Therapeutics: Saline lock 12 mg adenosine Impression: #1 SVT with chemical cardioversion Definitive disposition and diagnosis as appropriate pending reevaluation and review of above. - Related Data Allergies Allergy/AdvReac Type Severity Reaction Status Date / Time codeine Allergy Abdominal Verified 11/22/18 11:29 Pain Home Meds: Home Meds . 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: Musculoskeletal History: Reports: None Neurological History: Reports: None Psychiatric History: Reports: None Endocrine/Metabolic History: Reports: None Hematologic History: Reports: None Immunologic History: Reports: None Oncologic (Cancer) History: Reports: None Dermatologic History: Reports: None - Infectious Disease History Infectious Disease History: Reports: None - Past Surgical History Head Surgeries/Procedures: Reports: None Cardiovascular Surgical History: Reports: None GI Surgical History: Reports: Appendectomy, Cholecystectomy Endocrine Surgical History: Reports: None Neurological Surgical History: Reports: None Musculoskeletal Surgical History: Reports: None Social & Family History - Family History Family Medical History: Noncontributory - Tobacco Use Smoking Status *Q: Current Every Day Smoker Years of Tobacco use: 30 Packs/Tins Daily: 1 - Caffeine Use Caffeine Use: Reports: Coffee - Recreational Drug Use Recreational Drug Use: No ED ROS GENERAL - Review of Systems Review Of Systems: ROS reveals no pertinent complaints other than HPI. ED EXAM, GENERAL - Physical Exam Exam: See Below (See dictation) Course - Vital Signs Last Recorded V/S: Last Vital Signs Temp Pulse 209 H 11/22/18 11:30 Resp 20 11/22/18 11:30 BP 133/98 H 11/22/18 11:30 Pulse Ox 99 11/22/18 11:30 - Orders/Labs/Meds Orders: Active Orders 24 hr Category Date Time Status Sodium Chloride 0.9% [Normal Saline] 1,000 ml Med 11/22/18 11:38 Active IV .Bolus Medication Orders Sodium Chloride (Normal Saline) 1,000 mls @ 999 mls/hr IV .Bolus ONE Stop: 11/22/18 12:38 Last Admin: 11/22/18 11:42 Dose: 999 mls/hr Meds: Medications Generic Name Dose Route Start Last Admin Trade Name Freq PRN Reason Stop Dose Admin Sodium Chloride 1,000 mls @ 999 mls/hr 11/22/18 11:38 11/22/18 11:42 Normal Saline IV 11/22/18 12:38 999 mls/hr .Bolus ONE Administration Discontinued Medications Generic Name Dose Route Start Last Admin Trade Name Freq PRN Reason Stop Dose Admin Adenosine 12 mg 11/22/18 11:36 11/22/18 11:42 Adenocard IVPUSH 11/22/18 11:37 12 mg NOW ONE Administration Adenosine 12 mg 11/22/18 11:36 11/22/18 11:42 Adenocard IVPUSH 11/22/18 11:37 Not Given NOW ONE Departure - Departure Time of Disposition: 11:47 Disposition: Home, Self-Care 01 Condition: Good Clinical Impression: Supraventricular tachycardia Referrals: PCP,Unknown [Primary Care Provider] - Forms: ED Department Discharge Additional Instructions: The following information is given to patients seen in the emergency department who are being discharged to home. This information is to outline your options for follow-up care. We provide all patients seen in our emergency department with a follow-up referral. The need for follow-up, as well as the timing and circumstances, are variable depending upon the specifics of your emergency department visit. If you don't have a primary care physician on staff, we will provide you with a referral. We always advise you to contact your personal physician following an emergency department visit to inform them of the circumstance of the visit and for follow-up with them and/or the need for any referrals to a consulting specialist. The emergency department will also refer you to a specialist when appropriate. This referral assures that you have the opportunity for followup care with a specialist. All of these measure are taken in an effort to provide you with optimal care, which includes your followup. Under all circumstances we always encourage you to contact your private physician who remains a resource for coordinating your care. When calling for followup care, please make the office aware that this follow-up is from your recent emergency room visit. If for any reason you are refused follow-up, please contact the [facility] emergency department at and asked to speak to the emergency department charge nurse. Follow-up primary medical doctor as needed as discussed return as needed as discussed - My Orders Last 24 Hours: My Active Orders 11/22/18 11:38 Sodium Chloride 0.9% [Normal Saline] 1,000 ml IV .Bolus - Assessment/Plan Last 24 Hours: My Active Orders 11/22/18 11:38 Sodium Chloride 0.9% [Normal Saline] 1,000 ml IV .Bolus
[2018-11-22] MEDS ORDERED: Sodium Chloride 0.9% 1,000 ML IV ONE (11:38)
[2018-11-22 12:09] VITALS: BP 113/73
== END 2018-11-22 12:10 | disposition home or self-care (01) ==
LOC: MW.ED 11:27
DX: I47.1 Supraventricular tachycardia (principal); F17.210 Nicotine dependence, cigarettes, uncomplicated; Z88.5 Allergy status to narcotic agent
CPT/HCPCS: 93005; 96374; 99284; J0153; J7040

== ENCOUNTER 2021-06-28 08:14 | Emergency (ER) | payer SELFPAY ==
[2021-06-28] MEDS ORDERED: predniSONE 20 MG Tab PO ONE (08:31)
--- NOTE | 2021-06-28 08:31 | EDM.PDOC ---
ED HPI GENERAL MEDICAL PROBLEM - General Chief Complaint: General Stated Complaint: RIGHT SIDE FACE NUMBNESS Time Seen by Provider: 06/28/21 08:16 - History of Present Illness INITIAL COMMENTS - FREE TEXT/NARRATIVE: CHIEF COMPLAINT(S): Facial drooping HISTORY OF PRESENT ILLNESS: This is a 56-year-old woman with a past medical history of SVT and recent COVID-19 infection who comes to the emergency department with a chief complaint of facial drooping. The patient states that for approximately 15 hours she has been experiencing facial drooping. She states that it seemed to have gotten worse throughout the evening. She denies any trouble walking denies any numbness or tingling. She denies any prior history of CVA. She denies any history of hypertension. REVIEW OF SYSTEMS: Constitutional: Denies fever, chills. Eyes: Denies eye pain Ears, Nose, Mouth, & Throat: Denies earache Cardiovascular: Denies chest pain Respiratory: Denies shortness of breath Gastrointestinal: Denies Nausea, vomiting, diarrhea, hematochezia. 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: Denies hematuria Skin:Denies a rash MSK: Denies joint pain Neurological: Positive for right-sided facial droop. Denies blurred vision, double vision, loss of vision, numbness, tingling, weakness. Psychiatric: Denies depression PAST MEDICAL HISTORY: As per history of present illness and as reviewed below otherwise noncontributory. SURGICAL HISTORY: As per history of present illness and as reviewed below otherwise noncontributory. SOCIAL HISTORY: As per history of present illness and as reviewed below otherwise noncontributory. FAMILY HISTORY: As per history of present illness and as reviewed below otherwise noncontributory. EXAMINATION OF ORGAN SYSTEMS/BODY AREAS: Constitutional: Blood pressure is 163/102, heart rate 86, respiratory rate 18 with an oxygen saturation 96% on room air. Temperature 36.6 General: Well-appearing woman who is in no acute distress Psychiatric: Appropriate mood and affect. Eyes: No scleral icterus or conjunctival erythema pupils were equal and round and reactive to light. Extraocular movements were intact. ENMT: Moist mucous membranes. No pharyngeal erythema tongue protrudes midline. Uvula was midline Cardiovascular: Regular, rate, and rhythm. No gallops, murmurs, or rubs. Bilateral upper extremity pulses symmetric and intact. No peripheral edema. No JVD. Respiratory: Lungs clear to auscultation bilaterally. No wheezes, rales, or rhonchi. Gastrointestinal: Soft, non-tender, non-distended. Normoactive bowel sounds 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: No suprapubic tenderness Musculoskeletal: Normal range of motion. Skin: No lesions or abrasions. Neurological: Alert and oriented x4. GCS of 15. Strength and sensation intact in upper and lower extremities bilaterally. Gait is normal. [id number] and [id number] are all within normal limits. Patient has facial droop on the right side with inability to completely close her right eyelid and complete right forehead paralysis. MEDICAL DECISION MAKING AND COURSE IN THE ED WITH INTERPRETATION/REVIEW OF DIAGNOSTIC STUDIES: This is a 56-year-old man with a past medical history of SVT and recent COVID-19 infection who comes to the emergency department with Coffman's palsy. At this time we will provide the patient with 60 mg of p.o. prednisone. EKG was obtained which was unremarkable. Qlxzw-in-aalh glucose was normal at 128. I do not believe any further imaging is indicated. I did discuss treatment at home with prednisone and follow-up with neurology. She was amenable to discharge at this time and had no further questions. She is to return for any new or worsening symptoms. DISPOSITION: The patient was discharged home in stable condition. The patient will follow up with primary care physician and neurology in 3 to 5 days CONDITION: Fair PROCEDURES: None FINAL IMPRESSION(S)/DIAGNOSES: 1. Acute right-sided Coffman's palsy Josue Day M.D. - Related Data Allergies Allergy/AdvReac Type Severity Reaction Status Date / Time codeine Allergy Abdominal Verified 06/28/21 08:21 Pain Home Meds: Home Meds Naproxen Sodium [Aleve] 220 mg PO 06/28/21 [History] predniSONE 60 mg PO DAILY #7 tab 06/28/21 [Rx] valACYclovir [Valtrex] 1,000 mg PO TID #21 tab 06/28/21 [Rx] Past Medical History - Past Health History Medical/Surgical History: Denies Medical/Surgical History HEENT History: Reports: None Cardiovascular History: Reports: Arrhythmia, Other (See Below) Other Cardiovascular History: SVT Respiratory History: Reports: None Gastrointestinal History: Reports: None 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 History: Reports: 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: Musculoskeletal History: Reports: None Neurological History: Reports: None Psychiatric History: Reports: None Endocrine/Metabolic History: Reports: None Hematologic History: Reports: None Immunologic History: Reports: None Oncologic (Cancer) History: Reports: None Dermatologic History: Reports: None - Infectious Disease History Infectious Disease History: Reports: None - Past Surgical History Head Surgeries/Procedures: Reports: None Cardiovascular Surgical History: Reports: None GI Surgical History: Reports: Appendectomy, Cholecystectomy Endocrine Surgical History: Reports: None Neurological Surgical History: Reports: None Musculoskeletal Surgical History: Reports: None Social & Family History - Family History Family Medical History: No Pertinent Family History - Caffeine Use Caffeine Use: Reports: Coffee ED ROS GENERAL - Review of Systems Review Of Systems: See Below ED EXAM, GENERAL - Physical Exam Exam: See Below Course - Vital Signs Last Recorded V/S: Last Vital Signs Temp 36.1 C 06/28/21 09:00 Pulse 84 06/28/21 09:00 Resp 18 06/28/21 09:00 BP 159/94 H 06/28/21 09:00 Pulse Ox 97 06/28/21 09:00 - Orders/Labs/Meds Meds: Medications Discontinued Medications Generic Name Dose Route Start Last Admin Trade Name Freq PRN Reason Stop Dose Admin Prednisone 60 mg 06/28/21 08:31 06/28/21 08:40 Prednisone 20 Mg Tab PO 06/28/21 08:32 60 mg ONETIME ONE Administration Departure - Departure Time of Disposition: 08:29 Disposition: Home, Self-Care 01 Condition: Fair Clinical Impression: Coffman's palsy - Discharge Information *PRESCRIPTION DRUG MONITORING PROGRAM REVIEWED*: No *COPY OF PRESCRIPTION DRUG MONITORING REPORT IN PATIENT BOB: No Prescriptions: predniSONE 60 mg PO DAILY #7 tab valACYclovir [Valtrex] 1,000 mg PO TID #21 tab Instructions: Coffman Palsy, Adult Forms: ED Department Discharge Additional Instructions: Your evaluated today on an emergent basis. At this time I recommend you use artificial tears which can be purchased [id number] to keep your right eye moist. I recommend that you use glasses to shield your eye during the day or you may tape the eyelid shut. You need to use the artificial tears at least 4 times a day if not every hour on the hour. In addition, sometimes [place] Palsy is due to a herpes virus. I recommend you take Valacyclovir 1000mg three times a day for the next 7 days. If you have any worsening symptoms such as trouble walking or you notice that one side of your body is weaker than the other or you have any other concern I would like you to return to the emergency department. In addition I would like you to follow-up with neurology within 3 to 5 days for reevaluation. [facility] - Neurology [address], [address] [place] [address] The patient is informed of any results of their evaluation and diagnostic workup and all questions are answered. They are given discharge instructions and retu rn precautions. The patient is stable for discharge. The patient states they understand and agree with the plan and that they will return if their symptoms get worse or if they have any new concerns. The following information is given to patients seen in the emergency department who are being discharged to home. This information is to outline your options for follow-up care. We provide all patients seen in our emergency department with a follow-up referral. The need for follow-up, as well as the timing and circumstances, are variable depending upon the specifics of your emergency department visit. If you don't have a primary care physician on staff, we will provide you with a referral. We always advise you to contact your personal physician following an emergency department visit to inform them of the circumstance of the visit and for follow-up with them and/or the need for any referrals to a consulting specialist. The emergency department will also refer you to a specialist when appropriate. This referral assures that you have the opportunity for follow-up care with a specialist. All of these measure are taken in an effort to provide you with optimal care, which includes your follow-up. Under all circumstances we always encourage you to contact your private physician who remains a resource for coordinating your care. When calling for follow-up care, please make the office aware that this follow-up is from your recent emergency room visit. If for any reason you are refused follow-up, please contact the [facility] Emergency Departme nt at and asked to speak to the emergency department charge nurse.
[2021-06-28 09:10] VITALS: BP 159/94; PULSE 84
--- NOTE | 2021-06-28 15:35 | PCM.EKG ---
#1 Interpretation EKG Date: 06/28/21 Time: 08:15 Rhythm: NSR Rate (Beats/Min): 80 [place]: Normal P-Wave: Present QRS: Normal ST-T: Normal QT: Normal Comparison: No Change (11/22/18) EKG Interpretation Comments: Sinus Rhythm
== END 2021-06-28 09:06 | disposition home or self-care (01) ==
LOC: MW.ED 08:14
DX: G51.0 Bell's palsy (principal); Z88.5 Allergy status to narcotic agent; Z86.16 Personal history of COVID-19
CPT/HCPCS: 93005; 99284; A9270

== ENCOUNTER 2021-07-03 00:50 | Emergency (ER) | payer SELFPAY ==
[2021-07-03] MEDS ORDERED: Magnesium Citrate Solution 296 ML Bottle PO ONE (01:56)
[2021-07-03] MEDS ORDERED: Lactated Ringers 1,000 ML IV ONE (02:04)
[2021-07-03] MEDS ORDERED: Morphine 4 MG/ML VIAL IVPUSH ONE (02:04)
[2021-07-03 02:31] LABS: BLOOD UREA NITROGEN,BUN 22 mg/dL (7.0-18.0); CARBON DIOXIDE,CO2 26.4 mmol/L (21.0-32.0); CHLORIDE,CL 98 mmol/L (98-107); GLUCOSE RANDOM 136 mg/dL (74-106); POTASSIUM,K 4.4 mmol/L (3.5-5.1); SODIUM,NA 135 mmol/L (136-145)
[2021-07-03] MEDS ORDERED: Iopamidol 755 MG/ML 500 ML Multipack Bottle IVPUSH ONE (02:33)
--- NOTE | 2021-07-03 03:15 | EDM.PDOC ---
ED HPI GENERAL MEDICAL PROBLEM - General Chief Complaint: Abdominal Pain Stated Complaint: FEELS LIKE SHE'S DYING Time Seen by Provider: 07/03/21 00:59 - History of Present Illness INITIAL COMMENTS - FREE TEXT/NARRATIVE: CHIEF COMPLAINT(S): Constipation HISTORY OF PRESENT ILLNESS: This is a 56-year-old woman with a past medical history of SVT and recent COVID-19 infection and right-sided Coffman's palsy who is on prednisone and valacyclovir who comes to the emergency department with a chief complaint of constipation. The patient states that she is experiencing right-sided abdominal pain and diffuse abdominal pain and cramping which she rates as 10 out of 10 without any radiation. She states that she thinks it may be constipation so she was taking Dulcolax at home and tried an enema. She states that she did have a bowel movement with multiple pellets and then since then she has had watery diarrhea. She denies any melena, hematemesis, bilious emesis, vomiting, hematochezia. In addition she states that it is concerning that she may have sciatica. She has not yet tried any pain medication other than naproxen which did not relieve anything. There are no exacerbating factors and no relieving factors. REVIEW OF SYSTEMS: Constitutional: Denies fever, chills. Eyes: Denies eye pain Ears, Nose, Mouth, & Throat: Denies earache Cardiovascular: Denies chest pain Respiratory: Denies shortness of breath Gastrointestinal: Positive for abdominal pain and diarrhea/constipation. Denies vomiting, melena, hematochezia, hematemesis, bilious emesis 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: Denies hematuria Skin:Denies a rash MSK: Positive for right sciatic pain. Neurological: Denies blurred vision, numbness, tingling, weakness Psychiatric: Denies depression PAST MEDICAL HISTORY: As per history of present illness and as reviewed below otherwise noncontributory. SURGICAL HISTORY: As per history of present illness and as reviewed below otherwise noncontributory. SOCIAL HISTORY: As per history of present illness and as reviewed below otherwise noncontributory. FAMILY HISTORY: As per history of present illness and as reviewed below otherwise noncontributory. EXAMINATION OF ORGAN SYSTEMS/BODY AREAS: Constitutional: Blood pressure was 217/118, heart rate 97, respiratory rate 20 with an oxygen saturation of 100% on room air. Temperature 35.9 General: Middle-aged woman who appears to be in a moderate amount of pain Psychiatric: Appropriate mood and affect. Eyes: No scleral icterus or conjunctival erythema pupils are equal round reactive to light. Extraocular movements intact. ENMT: Moist mucous membranes. No pharyngeal erythema Cardiovascular: Regular, rate, and rhythm. No gallops, murmurs, or rubs. Bilateral upper extremity pulses symmetric and intact. No peripheral edema. No JVD. Respiratory: Lungs clear to auscultation bilaterally. No wheezes, rales, or rhonchi. Gastrointestinal: Soft, diffusely tender to palpation, nondistended. No rebound or guarding. Hyperactive bowel sounds. 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: No suprapubic tenderness Musculoskeletal: Normal range of motion. Negative straight leg test. There is bilateral paraspinal lumbar tenderness. Skin: No lesions or abrasions. Neurological: Alert and oriented x4. Patient now has evidence of bilateral Coffman's palsy. Otherwise strength and sensation grossly intact in upper and lower extremities bilaterally. MEDICAL DECISION MAKING AND COURSE IN THE ED WITH INTERPRETATION/REVIEW OF DIAGNOSTIC STUDIES: This is a 56-year-old woman with a past medical history of SVT and recent diagnosis of COVID-19 and right-sided Coffman's palsy who presents to the emergency department with diffuse abdominal pain and paraspinal lumbar tenderness who has evidence of bilateral Coffman's palsy. Given the bilateral Coffman's palsy will obtain a CT head without contrast. Given her abdominal pain we will provide the patient with morphine for pain relief and reevaluate. I do believe the patient is experiencing cramping secondary to constipation that is improving given that she provider to self with an enema at home and laxative. This could also be from laxative use. We will provide the patient with magnesium citrate by mouth. Will provide the patient with 1 L of lactated Ringer's bolus and obtain a CT abdomen pelvis with contrast for further evaluation. EKG was obtained which did not reveal any acute signs of ischemia. Patient was amenable to this plan. The patient denies any history of tick exposure, history of syphilis, recent vaccine or any other abnormality. I did contact [facility] in [place] and spoke with Dr. Jacobs regarding the bilateral Coffman's palsy. He recommended outpatient MRI and follow-up with neurology and to continue with prednisone, valacyclovir and to use Lacri-Lube to protect the eyes. I did discuss this with the patient and she was amenable to this plan. We did place the patient on a neurology follow-up list and provided the patient with a prescription for the outpatient MRI Laboratory: CBC reveals a leukocytosis of 17.37 and thrombocytosis at 470. I do believe the leukocytosis is secondary to prednisone given the patient is afebrile. CMP reveals hyponatremia 135, hyperglycemia at 136 and elevated alkaline phosphatase at 197 otherwise unremarkable. TSH is normal. hCG is negative. Urinalysis and urine drug screen are normal. Serum alcohol is negative. The radiological images were viewed by myself along with reading the report from the radiologist. CT head without contrast does not reveal any acute intracranial abnormality. CT abdomen pelvis with contrast does not reveal any acute intra-abdominal pathol ogy. There is scattered irregular opacities at the lung bases suspicious for COVID-19. This is expected given the patient's recent COVID-19 infection. On reevaluation patient had continued pain. She did not have any bowel movement at this time. Provide the patient with additional pain medication. On reevaluation patient's pain was well controlled. The patient is requesting to be discharged. The patient did not have any further episodes of bowel movement and reported symptomatic improvement. I did discuss her at this time that I do believe that she is likely having abdominal cramping secondary to constipation that was relieved at home. I discussed with her at this time that her blood pressure is elevated and that I would like her to follow-up with her primary care physician however would like to start her on lisinopril and send her a prescription. She was given strict return precautions and had no further questions. She was amenable discharge. DISPOSITION: The patient was discharged home in stable condition. The patient will follow up with neurology and primary care physician in 3 to 5 days CONDITION: Fair PROCEDURES: None FINAL IMPRESSION(S)/DIAGNOSES: 1. Acute bilateral Coffman's palsy 2. Acute abdominal pain 3. Acute hypertension likely multifactorial secondary to underlying hypertension and pain Josue Day M.D. Abdomen Pain Score (Numeric/FACES): 10 - Related Data Allergies Allergy/AdvReac Type Severity Reaction Status Date / Time codeine Allergy Abdominal Verified 07/03/21 01:10 Pain Home Meds: Home Meds Naproxen Sodium [Aleve] 200 mg PO 06/28/21 [History] predniSONE 60 mg PO DAILY #7 tab 06/28/21 [Rx] valACYclovir [Valtrex] 1,000 mg PO TID #21 tab 06/28/21 [Rx] lisinopriL [Lisinopril] 10 mg PO DAILY #30 tablet 07/03/21 [Rx] Past Medical History - Past Health History Medical/Surgical History: Denies Medical/Surgical History HEENT History: Reports: None Cardiovascular History: Reports: Arrhythmia, Other (See Below) Other Cardiovascular History: SVT Respiratory History: Reports: None Gastrointestinal History: Reports: None 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 History: Reports: None [employer] History: Reports: Musculoskeletal History: Reports: None Neurological History: Reports: None Psychiatric History: Reports: None Endocrine/Metabolic History: Reports: None Hematologic History: Reports: None Immunologic History: Reports: None Oncologic (Cancer) History: Reports: None Dermatologic History: Reports: None - Infectious Disease History Infectious Disease History: Reports: Chicken Pox, Measles - Past Surgical History Head Surgeries/Procedures: Reports: None HEENT Surgical History: Reports: Tonsillectomy Cardiovascular Surgical History: Reports: None GI Surgical History: Reports: Appendectomy, Cholecystectomy Female Surgical History: Reports: None Endocrine Surgical History: Reports: None Neurological Surgical History: Reports: None Musculoskeletal Surgical History: Reports: None Dermatological Surgical History: Reports: None Social & Family History - Family History Family Medical History: No Pertinent Family History Neurological: Reports: CVA - Tobacco Use Second Hand Smoke Exposure: No - Caffeine Use Caffeine Use: Reports: None - Recreational Drug Use Recreational Drug Use: No ED ROS GENERAL - Review of Systems Review Of Systems: See Below ED EXAM, GENERAL - Physical Exam Exam: See Below Course - Vital Signs Last Recorded V/S: Last Vital Signs Temp 35.9 C L 07/03/21 01:06 Pulse 91 07/03/21 04:20 Resp 20 07/03/21 04:20 BP 176/100 H 07/03/21 04:20 Pulse Ox 98 07/03/21 04:20 - Orders/Labs/Meds Labs: Laboratory Tests 07/03/21 07/03/21 07/03/21 Range/Units 01:20 01:20 01:20 WBC 17.37 H (4.0-11.0) K/uL RBC 4.86 (4.30-5.90) M/uL Hgb 14.5 (12.0-16.0) g/dL Hct 41.9 (36.0-46.0) % MCV 86.2 (80.0-98.0) fL MCH 29.8 (27.0-32.0) pg MCHC 34.6 (31.0-37.0) g/dL RDW Std Deviation 43.8 (28.0-62.0) fl RDW Coeff of Itz 14 (11.0-15.0) % Plt Count 470 H (150-400) K/uL MPV 9.80 (7.40-12.00) fL Neut % (Auto) 84.3 H (48.0-80.0) % Lymph % (Auto) 10.0 L (16.0-40.0) % [place] % (Auto) 5.5 (0.0-15.0) % Eos % (Auto) 0.1 (0.0-7.0) % Baso % (Auto) 0.1 (0.0-1.5) % Neut # (Auto) 14.7 H (1.4-5.7) K/uL Lymph # (Auto) 1.7 (0.6-2.4) K/uL [place] # (Auto) 1.0 H (0.0-0.8) K/uL Eos # (Auto) 0.0 (0.0-0.7) K/uL Baso # (Auto) 0.0 (0.0-0.1) K/uL Nucleated RBC % 0.0 /100WBC Nucleated RBCs # 0 K/uL Sodium 135 L (136-145) mmol/L Potassium 4.4 (3.5-5.1) mmol/L Chloride 98 (98-107) mmol/L Carbon Dioxide 26.4 (21.0-32.0) mmol/L BUN 22 H (7.0-18.0) mg/dL Creatinine 0.9 (0.6-1.0) mg/dL Est Cr Clr Drug Dosing 69.57 mL/min Estimated GFR (MDRD) > 60.0 ml/min Glucose 136 H (74-106) mg/dL Calcium 8.7 (8.5-10.1) mg/dL Magnesium 2.1 (1.8-2.4) mg/dL Total Bilirubin 0.4 (0.2-1.0) mg/dL AST 19 (15-37) IU/L ALT 58 (14-63) IU/L Alkaline Phosphatase 197 H (46-116) U/L Total Protein 7.5 (6.4-8.2) g/dL Albumin 3.8 (3.4-5.0) g/dL Globulin 3.7 (2.6-4.0) g/dL Albumin/Globulin Ratio 1.0 (0.9-1.6) TSH, Ultra Sensitive 2.23 (0.36-3.74) uIU/mL HCG, Qual NEGATIVE (NEG) Urine Color Urine Appearance Urine pH (5.0-8.0) Ur Specific [place] (1.001-1.035) Urine Protein (NEGATIVE) mg/dL Urine Glucose (UA) (NEGATIVE) mg/dL Urine Ketones (NEGATIVE) mg/dL Urine Occult Blood (NEGATIVE) Urine Nitrite (NEGATIVE) Urine Bilirubin (NEGATIVE) Urine Urobilinogen (<2.0) EU/dL Ur Leukocyte Esterase (NEGATIVE) Urine Opiates Screen (NEGATIVE) Ur Oxycodone Screen (NEGATIVE) Urine Methadone Screen (NEGATIVE) Ur Barbiturates Screen (NEGATIVE) Ur Phencyclidine Scrn (NEGATIVE) Ur Amphetamine Screen (NEGATIVE) U Methamphetamines Scrn (NEGATIVE) U Benzodiazepines Scrn (NEGATIVE) U Cocaine Metab Screen (NEGATIVE) U Marijuana (THC) Screen (NEGATIVE) Ethyl Alcohol < 3.0 mg/dL 07/03/21 07/03/21 Range/Units 03:00 03:00 WBC (4.0-11.0) K/uL RBC (4.30-5.90) M/uL Hgb (12.0-16.0) g/dL Hct (36.0-46.0) % MCV (80.0-98.0) fL MCH (27.0-32.0) pg MCHC (31.0-37.0) g/dL RDW Std Deviation (28.0-62.0) fl RDW Coeff of Itz (11.0-15.0) % Plt Count (150-400) K/uL MPV (7.40-12.00) fL Neut % (Auto) (48.0-80.0) % Lymph % (Auto) (16.0-40.0) % [place] % (Auto) (0.0-15.0) % Eos % (Auto) (0.0-7.0) % Baso % (Auto) (0.0-1.5) % Neut # (Auto) (1.4-5.7) K/uL Lymph # (Auto) (0.6-2.4) K/uL [place] # (Auto) (0.0-0.8) K/uL Eos # (Auto) (0.0-0.7) K/uL Baso # (Auto) (0.0-0.1) K/uL Nucleated RBC % /100WBC Nucleated RBCs # K/uL Sodium (136-145) mmol/L Potassium (3.5-5.1) mmol/L Chloride (98-107) mmol/L Carbon Dioxide (21.0-32.0) mmol/L BUN (7.0-18.0) mg/dL Creatinine (0.6-1.0) mg/dL Est Cr Clr Drug Dosing mL/min Estimated GFR (MDRD) ml/min Glucose (74-106) mg/dL Calcium (8.5-10.1) mg/dL Magnesium (1.8-2.4) mg/dL Total Bilirubin (0.2-1.0) mg/dL AST (15-37) IU/L ALT (14-63) IU/L Alkaline Phosphatase (46-116) U/L Total Protein (6.4-8.2) g/dL Albumin (3.4-5.0) g/dL Globulin (2.6-4.0) g/dL Albumin/Globulin Ratio (0.9-1.6) TSH, Ultra Sensitive (0.36-3.74) uIU/mL HCG, Qual (NEG) Urine Color YELLOW Urine Appearance CLEAR Urine pH 6.0 (5.0-8.0) Ur Specific [place] 1.025 (1.001-1.035) Urine Protein NEGATIVE (NEGATIVE) mg/dL Urine Glucose (UA) NEGATIVE (NEGATIVE) mg/dL Urine Ketones NEGATIVE (NEGATIVE) mg/dL Urine Occult Blood NEGATIVE (NEGATIVE) Urine Nitrite NEGATIVE (NEGATIVE) Urine Bilirubin NEGATIVE (NEGATIVE) Urine Urobilinogen 0.2 (<2.0) EU/dL Ur Leukocyte Esterase NEGATIVE (NEGATIVE) Urine Opiates Screen NEGATIVE (NEGATIVE) Ur Oxycodone Screen NEGATIVE (NEGATIVE) Urine Methadone Screen NEGATIVE (NEGATIVE) Ur Barbiturates Screen NEGATIVE (NEGATIVE) Ur Phencyclidine Scrn NEGATIVE (NEGATIVE) Ur Amphetamine Screen NEGATIVE (NEGATIVE) U Methamphetamines Scrn NEGATIVE (NEGATIVE) U Benzodiazepines Scrn NEGATIVE (NEGATIVE) U Cocaine Metab Screen NEGATIVE (NEGATIVE) U Marijuana (THC) Screen NEGATIVE (NEGATIVE) Ethyl Alcohol mg/dL Meds: Medications Discontinued Medications Generic Name Dose Route Start Last Admin Trade Name Jerry PRN Reason Stop Dose Admin Fentanyl 25 mcg 07/03/21 03:41 07/03/21 03:45 Fentanyl 50 Mcg/Ml Sdv IVPUSH 07/03/21 03:42 25 mcg ONETIME ONE Administration Lactated Ringer's 1,000 mls @ 999 mls/hr 07/03/21 02:04 07/03/21 02:10 Ringers, Lactated IV 07/03/21 03:04 999 mls/hr .BOLUS ONE Administration Iopamidol 100 ml 07/03/21 02:33 07/03/21 02:58 Iopamidol 755 Mg/Ml 500 Ml Multipack Bottle IVPUSH 07/03/21 02:34 100 ml ONETIME ONE Administration Ketorolac Tromethamine 30 mg 07/03/21 03:40 07/03/21 03:45 Ketorolac 30 Mg/Ml Sdv IVPUSH 07/03/21 03:41 30 mg ONETIME STA Administration Lisinopril 10 mg 07/03/21 04:11 07/03/21 04:19 Lisinopril 10 Mg Tab PO 07/03/21 04:12 10 mg ONETIME ONE Administration Magnesium Citrate 200 ml 07/03/21 01:56 07/03/21 02:06 Magnesium Citrate Solution 296 Ml Bottle PO 07/03/21 01:57 200 ml ONETIME ONE Administration Morphine Sulfate 4 mg 07/03/21 02:04 07/03/21 02:10 Morphine 4 Mg/Ml Vial IVPUSH 07/03/21 02:05 4 mg ONETIME ONE Administration Departure - Departure Time of Disposition: 04:09 Disposition: Home, Self-Care 01 Condition: Fair Clinical Impression: Constipation, Hip pain, Coffman's palsy - Discharge Information Prescriptions: lisinopriL [Lisinopril] 10 mg PO DAILY #30 tablet Instructions: Coffman Palsy, Adult, Hip Pain, Constipation, Adult, Hypertension, Adult, [id number] Referrals: PCP,None [Primary Care Provider] - Forms: ED Department Discharge Additional Instructions: You were evaluated today on an emergent basis. At this time the imaging of your abdomen and pelvis do not reveal any abnormality of your intestines or other acute finding. It does reveal evidence of your prior Covid infection however no other abnormality. I recommend you continue to use Tylenol and Motrin for pain relief as described below. In addition your blood pressure was elevated however it was elevated last time. I do believe the elevation today is likely secondary to the pain you are experiencing. I recommend he follow-up with primary care physician for blood pressure management. I did send you a prescription for lisinopril 10 mg daily which can be picked up at the pharmacy. In addition, given your constipation I do believe that given that you had one bowel movement at home with resultant fluid stools I believe you have relieved your constipation however I continue to recommend that you take docusate and senna as well as maintaining fluid hydration. Please continue to take the valacyclovir and the prednisone as prescribed from prior for the Coffman's palsy. Given that it did progress to both sides of your face I did speak with neurology and they recommended outpatient MRI with follow-up with neurology. You will be contacted for the appointment for the MRI and I recommend you follow-up with Dr. Benitez for the results and continued management. In addition given that you have are unable to close her eyelids completely I recommend you take them at night and use Lacri-Lube which can be purchased [id number] and applied every hour for eye dryness. As discussed if you have any worsening of your symptoms as prior or you have worsening abdominal pain, inability to eat or drink we still do not have any bowel movements I recommend you return to the emergency department. Please use: Tylenol 500-1000mg every 6 hours (DO NOT TAKE MORE THAN 4000mg in 1 day) Ibuprofen 400mg every 6 hours (Take with food as it can cause ulcers, GI upset) Example schedule: 8:00 AM (Tylenol 500-1000mg) 11:00 AM (Ibuprofen 400mg) 2:00 PM (Tylenol 500-1000mg) 5:00 PM (Ibuprofen 400mg) In addition to Tylenol and Motrin you may use over the counter creams such as Voltaren Cream or Lidocaine Cream (Lidoderm) as needed 4 times a day for symptomatic relief. Ice the area 20 minutes 4 times per day [facility] [address] [place], [address] [place] [address] [facility] [address] [place] [address] [facility] [address] [place] [id number] The patient is informed of any results of their evaluation and diagnostic workup and all questions are answered. They are given discharge instructions and return precautions. The patient is stable for discharge. The patient states they understand and agree with the plan and that they will return if their symptoms get worse or if they have any new concerns. The following information is given to patients seen in the emergency department who are being discharged to home. This information is to outline your options for follow-up care. We provide all patients seen in our emergency department with a follow-up referral. The need for follow-up, as well as the timing and circumstances, are variable depending upon the specifics of your emergency department visit. If you don't have a primary care physician on staff, we will provide you with a referral. We always advise you to contact your personal physician following an emergency department visit to inform them of the circumstance of the visit and for follow-up with them and/or the need for any referrals to a consulting specialist. The emergency department will also refer you to a specialist when appropriate. This referral assures that you have the opportunity for follow-up care with a specialist. All of these measure are taken in an effort to provide you with optimal care, which includes your follow-up. Under all circumstances we always encourage you to contact your private physician who remains a resource for coordinating your care. When calling for follow-up care, please make the office aware that this follow-up is from your recent emergency room visit. If for any reason you are refused follow-up, please contact the [facility] Emergency Department at and asked to speak to the emergency department charge nurse. Sepsis Event Note (ED) - Evaluation Sepsis Screening Result: No Definite Risk - Focused Exam Vital Signs: Vital Signs Temp Pulse Resp BP BP Pulse Ox 07/03/21 04:20 91 20 176/100 H 98 07/03/21 04:19 193/122 H 07/03/21 03:00 93 20 184/109 H 95 07/03/21 01:06 35.9 C L 97 20 217/118 H 100
--- NOTE | 2021-07-03 03:29 | PCM.EKG ---
#1 Interpretation EKG Date: 07/03/21 Time: 02:25 Rhythm: NSR Rate (Beats/Min): 92 [place]: Normal P-Wave: Present QRS: Normal ST-T: Normal QT: Normal Comparison: No Change (06/28/21) EKG Interpretation Comments: SInus Rhythm
--- NOTE | 2021-07-03 03:36 | CT ---
Indication: Worsening Coffman`s palsy Technique: Nonenhanced axial CT imaging through the head. Sagittal and coronal reconstructions are provided. Comparison: None Findings: There is no evidence of intracranial hemorrhage or cerebral edema. Mary-white matter differentiation is preserved. The ventricles are normal in size. The basal cisterns are patent. The calvarium is intact. The visualized paranasal sinuses and mastoid air cells are aerated. Impression: No acute intracranial process. Please note that all CT scans at this facility use dose modulation, iterative reconstruction, and/or weight-based dosing when appropriate to reduce radiation dose to as low as reasonably achievable. Dictated by Letty Platt MD @ 07/03/2021 3:34:19 AM (Electronically Signed)
[2021-07-03] MEDS ORDERED: Ketorolac 30 MG/ML SDV IVPUSH STA (03:40)
[2021-07-03] MEDS ORDERED: fentaNYL 50 MCG/ML SDV IVPUSH ONE (03:41)
--- NOTE | 2021-07-03 03:42 | CT ---
Indication: Abdominal pain, constipation x5 days Technique: Contrast enhanced axial CT imaging through the abdomen and pelvis. 100 mL Isovue 370 contrast agent was administered intravenously. Sagittal and coronal reconstructions are provided. Comparison: None Findings: No abnormalities are demonstrated relating to the liver, spleen, pancreas, adrenal glands, and kidneys. Cholecystectomy clips are noted. The portal vein is patent. The abdominal aorta is normal in caliber. There is no abdominal or pelvic lymphadenopathy. The urinary bladder, uterus, and ovaries are grossly unremarkable. The stomach and duodenum are unremarkable. There is no small bowel wall thickening or abnormal distention. The appendix is noninflamed. There is no colonic wall thickening or mesenteric edema. There is mild degenerative anterolisthesis at L4-5. Scattered irregular opacity are noted in the visualized lung bases Impression: 1. Scattered irregular opacity in the lung bases, suspicious for infiltrates, including COVID-19 infection. Correlate clinically. Consider dedicated chest imaging. 2. No acute abnormality demonstrated in the abdomen and pelvis. Please note that all CT scans at this facility use dose modulation, iterative reconstruction, and/or weight-based dosing when appropriate to reduce radiation dose to as low as reasonably achievable. Dictated by Letty Platt MD @ 07/03/2021 3:41:31 AM (Electronically Signed)
[2021-07-03] MEDS ORDERED: Lisinopril 10 MG Tab PO ONE (04:11)
[2021-07-03 04:47] VITALS: BP 176/100; PULSE 91
== END 2021-07-03 04:20 | disposition home or self-care (01) ==
LOC: MW.ED 00:50
DX: K59.00 Constipation, unspecified (principal); G51.0 Bell's palsy; M25.551 Pain in right hip; M25.552 Pain in left hip; I10 Essential (primary) hypertension; Z86.16 Personal history of COVID-19; Z88.5 Allergy status to narcotic agent; Z79.899 Other long term (current) drug therapy
CPT/HCPCS: 36415; 70450; 74177; 80053; 80305; 80307; 81003; 83735; 84443; 84703; 85025; 93005; 96374; 96375; 99284; A9270; J1885; J2270; J3010; J7120; Q9967

== ENCOUNTER 2021-07-06 05:53 | Emergency (ER) | payer SELFPAY ==
[2021-07-06] MEDS ORDERED: Cyclobenzaprine 10 MG Tab PO ONE (06:07)
[2021-07-06] MEDS ORDERED: Ketorolac 30 MG/ML SDV IVPUSH ONE (06:07)
--- NOTE | 2021-07-06 06:10 | EDM.PDOC ---
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 Patient states that for the last several days she has had pain in bilateral lower back radiating down to her knees. She also endorses constipation. She was seen here recently for constipation and had a very extensive work-up including both labs and CT imaging which showed no acute abnormalities. She improved after magnesium citrate. She states that she has not had a bowel movement since then. She denies any urinary symptoms. - Related Data Allergies Allergy/AdvReac Type Severity Reaction Status Date / Time codeine Allergy Abdominal Verified 07/06/21 06:07 Pain Home Meds: Home Meds Naproxen Sodium [Aleve] 200 mg PO DAILY 06/28/21 [History] predniSONE 60 mg PO DAILY #7 tab 06/28/21 [Rx] valACYclovir [Valtrex] 1,000 mg PO TID #21 tab 06/28/21 [Rx] lisinopriL [Lisinopril] 10 mg PO DAILY #30 tablet 07/03/21 [Rx] Cyclobenzaprine [Flexeril] 10 mg PO TID PRN #14 tab 07/06/21 [Rx] Diclofenac Sodium [Voltaren] 50 mg PO BID PRN #14 tab.ec 07/06/21 [Rx] Past Medical History - Past Health History Medical/Surgical History: Denies Medical/Surgical History HEENT History: Reports: None Cardiovascular History: Reports: Arrhythmia, Other (See Below) Other Cardiovascular History: SVT Respiratory History: Reports: None Gastrointestinal History: Reports: None 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 History: Reports: None PRESSFITTER 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: Reports: Musculoskeletal History: Reports: None Neurological History: Reports: None Psychiatric History: Reports: None Endocrine/Metabolic History: Reports: None Hematologic History: Reports: None Immunologic History: Reports: None Oncologic (Cancer) History: Reports: None Dermatologic History: Reports: None - Infectious Disease History Infectious Disease History: Reports: Chicken Pox, Measles - Past Surgical History Head Surgeries/Procedures: Reports: None HEENT Surgical History: Reports: Tonsillectomy Cardiovascular Surgical History: Reports: None GI Surgical History: Reports: Appendectomy, Cholecystectomy Female Surgical History: Reports: None Endocrine Surgical History: Reports: None Neurological Surgical History: Reports: None Musculoskeletal Surgical History: Reports: None Dermatological Surgical History: Reports: None Social & Family History - Family History Family Medical History: No Pertinent Family History Neurological: Reports: CVA - Caffeine Use Caffeine Use: Reports: None ED ROS GENERAL - Review of Systems Review Of Systems: Comprehensive ROS is negative, except as noted in HPI. ED EXAM, GENERAL - Physical Exam Exam: See Below Exam Limited By: No Limitations General Appearance: Alert, WD/WN, No Apparent Distress, Other (Unkempt) Ears: Hearing Grossly Normal Throat/Mouth: Normal Voice, No Airway Compromise Respiratory/Chest: No Respiratory Distress, Lungs Clear, Normal Breath Sounds, No Accessory Muscle Use Cardiovascular: Normal Peripheral Pulses, Regular Rate, Rhythm GI/Abdominal: Soft, Non-Tender Back Exam: Normal Inspection. No: CVA Tenderness (L), CVA Tenderness (R) Extremities: Normal Inspection Neurological: Alert, Normal Cognition, No Motor/Sensory Deficits Psychiatric: Anxious, Tearful Skin Exam: Warm, Dry, Intact, Normal Color Course - Re-Assessments/Exams Free Text/Narrative Re-Assessment/Exam: 07/06/21 06:12 We will treat patient's pain with Toradol and Flexeril and reassess. Will get basic labs. Will check abdominal series XR imaging to assess for constipation or less likely obstruction 07/06/21 06:14 Patient now mentions that she fell and she is concerned that she injured her right foot. This occurred last night. She states she fell because she is so weak. 07/06/21 06:38 Labs reveal leukocytosis in the setting of prednisone use. Patient is also noted to be hyponatremic to 125, this appears to be a new finding from labs drawn a few days ago. 1 L IV fluid bolus ordered. Departure - Departure Disposition: Home, Self-Care 01 Clinical Impression: Hyponatremia, Hypertension, Back pain, Fall, Foot pain, right, Constipation - Discharge Information Prescriptions: Cyclobenzaprine [Flexeril] 10 mg PO TID PRN #14 tab PRN Reason: Muscle Spasm - Painful Diclofenac Sodium [Voltaren] 50 mg PO BID PRN #14 tab.ec PRN Reason: Pain (Moderate 4-6) Referrals: PCP,None [Primary Care Provider] - Forms: ED Department Discharge Additional Instructions: Your prescription went [facility] Take magnesium citrate or senna or Ex-Lax to empty your bowels and every day take Colace or generic Colace or MiraLAX or Metamucil with lots of fluids twice a day so that you make soft stool. The magnesium citrate senna or Ex-Lax already because you did have a bowel movement and the others are to cause you to make soft stool. [facility] [address] [place] [id number] [id number] The following information is given to patients seen in the emergency department who are being discharged to home. This information is to outline your options for follow-up care. We provide all patients seen in our emergency department with a follow-up referral. The need for follow-up, as well as the timing and circumstances, are variable depending upon the specifics of your emergency department visit. If you don't have a primary care physician on staff, we will provide you with a referral. We always advise you to contact your personal physician following an emergency department visit to inform them of the circumstance of the visit and for follow-up with them and/or the need for any referrals to a consulting specialist. The emergency department will also refer you to a specialist when appropriate. This referral assures that you have the opportunity for follow-up care with a specialist. All of these measure are taken in an effort to provide you with optimal care, which includes your follow-up. Under all circumstances we always encourage you to contact your private physician who remains a resource for coordinating your care. When calling for follow-up care, please make the office aware that this follow-up is from your recent emergency room visit. If for any reason you are refused follow-up, please contact the [facility] Emergency Department at and asked to speak to the emergency department charge nurse. Sepsis Event Note (ED) - Evaluation Sepsis Screening Result: No Definite Risk <Shubham Covarrubias - Last Filed: 07/06/21 10:34> ED HPI GENERAL MEDICAL PROBLEM - History of Present Illness INITIAL COMMENTS - FREE TEXT/NARRATIVE: The patient also said she had a fall yesterday 24 hours ago. At that time she lost her footing or her feet gave out. She is heavy but she claims she is safe at home and in her home environment. Course - Vital Signs Last Recorded V/S: Last Vital Signs Temp 35.9 C L 07/06/21 05:59 Pulse 87 07/06/21 09:22 Resp 18 07/06/21 08:07 BP 149/83 H 07/06/21 09:22 Pulse Ox 97 07/06/21 09:22 - Orders/Labs/Meds Labs: Laboratory Tests 07/06/21 07/06/21 07/06/21 Range/Units 06:00 06:00 06:24 WBC 16.07 H (4.0-11.0) K/uL RBC 5.30 (4.30-5.90) M/uL Hgb 16.4 H (12.0-16.0) g/dL Hct 45.1 (36.0-46.0) % MCV 85.1 (80.0-98.0) fL MCH 30.9 (27.0-32.0) pg MCHC 36.4 (31.0-37.0) g/dL RDW Std Deviation 43.7 (28.0-62.0) fl RDW Coeff of Itz 15 (11.0-15.0) % Plt Count 457 H (150-400) K/uL MPV 9.60 (7.40-12.00) fL Neut % (Auto) 77.9 (48.0-80.0) % Lymph % (Auto) 13.4 L (16.0-40.0) % [place] % (Auto) 8.4 (0.0-15.0) % Eos % (Auto) 0.2 (0.0-7.0) % Baso % (Auto) 0.1 (0.0-1.5) % Neut # (Auto) 12.5 H (1.4-5.7) K/uL Lymph # (Auto) 2.2 (0.6-2.4) K/uL [place] # (Auto) 1.4 H (0.0-0.8) K/uL Eos # (Auto) 0.0 (0.0-0.7) K/uL Baso # (Auto) 0.0 (0.0-0.1) K/uL Nucleated RBC % 0.0 /100WBC Nucleated RBCs # 0 K/uL Sodium 126 L (136-145) mmol/L Potassium 4.3 (3.5-5.1) mmol/L Chloride 90 L (98-107) mmol/L Carbon Dioxide 27.9 (21.0-32.0) mmol/L BUN 18 (7.0-18.0) mg/dL Creatinine 0.8 (0.6-1.0) mg/dL Est Cr Clr Drug Dosing 83.90 mL/min Estimated GFR (MDRD) > 60.0 ml/min Glucose 128 H (74-106) mg/dL Calcium 8.9 (8.5-10.1) mg/dL Total Bilirubin 0.8 (0.2-1.0) mg/dL AST 25 (15-37) IU/L ALT 79 H (14-63) IU/L Alkaline Phosphatase 167 H (46-116) U/L Total Protein 7.5 (6.4-8.2) g/dL Albumin 3.8 (3.4-5.0) g/dL Globulin 3.7 (2.6-4.0) g/dL Albumin/Globulin Ratio 1.0 (0.9-1.6) Urine Color YELLOW Urine Appearance HAZY Urine pH 6.0 (5.0-8.0) Ur Specific [place] 1.025 (1.001-1.035) Urine Protein NEGATIVE (NEGATIVE) mg/dL Urine Glucose (UA) NEGATIVE (NEGATIVE) mg/dL Urine Ketones TRACE H (NEGATIVE) mg/dL Urine Occult Blood NEGATIVE (NEGATIVE) Urine Nitrite NEGATIVE (NEGATIVE) Urine Bilirubin NEGATIVE (NEGATIVE) Urine Urobilinogen 0.2 (<2.0) EU/dL Ur Leukocyte Esterase NEGATIVE (NEGATIVE) Meds: Medications Discontinued Medications Generic Name Dose Route Start Last Admin Trade Name Freq PRN Reason Stop Dose Admin Cyclobenzaprine HCl 10 mg 07/06/21 06:07 07/06/21 06:12 Cyclobenzaprine 10 Mg Tab PO 07/06/21 06:08 10 mg ONETIME ONE Administration Hydralazine HCl 10 mg 07/06/21 07:45 07/06/21 07:51 Hydralazine 20 Mg/Ml Sdv IVPUSH 07/06/21 07:46 10 mg ONETIME ONE Administration Hydromorphone HCl 1 mg 07/06/21 07:15 07/06/21 07:19 Hydromorphone 2 Mg/Ml Syringe IVPUSH 07/06/21 07:16 1 mg ONETIME ONE Administration Sodium Chloride 1,000 mls @ 999 mls/hr 07/06/21 06:37 07/06/21 06:42 Normal Saline IV 07/06/21 07:37 999 mls/hr .Bolus ONE Administration Ketorolac Tromethamine 15 mg 07/06/21 06:07 07/06/21 06:12 Ketorolac 30 Mg/Ml Sdv IVPUSH 07/06/21 06:08 15 mg ONETIME ONE Administration - Re-Assessments/Exams Free Text/Narrative Re-Assessment/Exam: 07/06/21 07:12 Patient signed out to me by my partner at the end of his shift. Her foot looks like she may have gout with erythema and pain on range of motion of the right great toe at the MPJ. She has severe pain in her back when she tries to move although she is somewhat relieved when she rests. Plan for the medication but constipation has been a problem so this will be difficult to do with narcotics. The Flexeril seems not to have worked well. Will prescribe Flexeril and diclofenac when she is discharged but need to see tear thoracic and lumbar spine first 07/06/21 10:34 The patient had some much abdominal pain in the left lower quadrant with constipation that I did a CT before giving a cathartic laxative. It was unremarkable except for constipation. Departure - Departure Time of Disposition: 10:32 Condition: Good Sepsis Event Note (ED) - Focused Exam Vital Signs: Vital Signs Temp Pulse Resp BP Pulse Ox 07/06/21 09:22 87 149/83 H 97 07/06/21 08:58 76 154/79 H 97 07/06/21 08:07 74 18 166/85 H 98 07/06/21 07:42 69 20 177/92 H 95 07/06/21 05:59 35.9 C L 90 18 199/107 H 97
[2021-07-06 06:29] LABS: BLOOD UREA NITROGEN,BUN 18 mg/dL (7.0-18.0); CARBON DIOXIDE,CO2 27.9 mmol/L (21.0-32.0); CHLORIDE,CL 90 mmol/L (98-107); GLUCOSE RANDOM 128 mg/dL (74-106); POTASSIUM,K 4.3 mmol/L (3.5-5.1); SODIUM,NA 126 mmol/L (136-145)
[2021-07-06] MEDS ORDERED: Sodium Chloride 0.9% 1,000 ML IV ONE (06:37)
[2021-07-06] MEDS ORDERED: HYDROmorphone 2 MG/ML Syringe IVPUSH ONE (07:15)
--- NOTE | 2021-07-06 07:25 | CR ---
Indication: Trauma Technique: Three images of the right foot were acquired Comparison: There are no prior studies for comparison Findings: Bone mineral density appears normal. There is no lytic or blastic lesion, fracture or dislocation identified. Minor osteoarthritis of the 1st MTP and developing bunion. Impression: No posttraumatic findings Dictated by Darell Krishna MD @ 07/06/2021 7:23:21 AM (Electronically Signed)
--- NOTE | 2021-07-06 07:31 | CR ---
Indication: Constipation Technique: Single view of the chest in AP portable upright as well as upright and supine abdomen radiographs. Comparison: A chest radiograph dated July 05, 2018 in limited portions of a CT from July 03, 2021 Findings: The heart size is normal. A tortuous thoracic aorta is noted. The lungs show minimal linear opacity at the left lung base which could be atelectatic or inflammatory. No pleural effusion or pneumothorax. Regarding the abdomen and pelvis, the study is limited by soft tissue attenuation factors but no specific abnormalities noted. No free air Impression: 1. Chest: Minimal basilar opacity on the left could be atelectatic or inflammatory. 2. Abdomen and pelvis: Limited by soft tissue attenuation factors but no evidence of ileus, obstruction or perforation by plain film. There is no undue fecal retention pattern to suggest constipation without mechanical obstruction Dictated by Darell Krishna MD @ 07/06/2021 7:31:01 AM (Electronically Signed)
[2021-07-06] MEDS ORDERED: hydrALAZINE 20 MG/ML SDV IVPUSH ONE ×2 (07:45→10:51)
--- NOTE | 2021-07-06 08:07 | CT ---
Indication: Pain following trauma. Technique: CT thoracic spine: Performed without IV contrast CT lumbar spine: Performed without IV contrast. Comparison: None available. Findings: Thoracic spine: Mildly exaggerated thoracic kyphosis with slight chronic loss of anterior vertebral body height at several mid thoracic levels including T7 and T8. No acute fracture is identified. No bony compromise of the thoracic spinal canal. Intraspinal soft tissue resolution is reduced due to beam hardening artifact, but no gross abnormality is identified. Degenerative sclerosis is noted along the segments of the vertebral endplates at C6-7, C7-T1, T8-9 and T9-10. The visualized lung urrutia and posterior ribs are unremarkable. Lumbar spine: Minor degenerative retrolisthesis at L5-S1. Slight degenerative anterolisthesis at L4-5. No traumatic subluxation identified. No evidence for fracture. Scattered spondylosis, including severe bilateral facet osteoarthritis with vacuum phenomenon at L4-5. The paraspinal soft tissues are grossly negative. Impression: CT thoracic spine: 1. No traumatic subluxation or acute fracture identified. 2. Mild chronic anterior wedging of mid thoracic vertebral bodies, with exaggerated thoracic kyphosis. 3. Scattered spondylosis. CT lumbar spine: 1. No fracture or traumatic subluxation identified. 2. At L4-5 there is severe bilateral facet osteoarthritis and trace degenerative anterolisthesis. 3. Low-grade degenerative retrolisthesis is present at L5-S1. Please note that all CT scans at this facility use dose modulation, iterative reconstruction, and/or weight-based dosing when appropriate to reduce radiation dose to as low as reasonably achievable. Dictated by Faustino Ventura MD @ 07/06/2021 8:04:45 AM (Electronically Signed)
--- NOTE | 2021-07-06 10:25 | CT ---
INDICATION: Abdominal pain. TECHNIQUE: Volumetric helical scanning of the abdomen and pelvis was performed without contrast material. Coronal and sagittal reconstructions were obtained. COMPARISON: Abscess pelvis CT of 07/03/2021. FINDINGS: There is no evidence of bowel obstruction or inflammation. There is a moderate amount of stool in the colon. Post op changes of cholecystectomy are again demonstrated. The liver, bile ducts, spleen, adrenal glands, kidneys and pancreas are negative. No lymphadenopathy or free fluid is evident. The uterus and ovaries are negative. Small pulmonary opacities/infiltrates in the lung bases are unchanged. The heart size remains normal. IMPRESSION: 1. Possible constipation. 2. Unchanged small lung base opacities/infiltrates. 3. Post cholecystectomy. Please note that all CT scans at this facility use dose modulation, iterative reconstruction, and/or weight-based dosing when appropriate to reduce radiation dose to as low as reasonably achievable. Dictated by Kwan Pedro MD @ 07/06/2021 10:23:28 AM (Electronically Signed)
[2021-07-06 12:24] VITALS: BP 153/72; PULSE 97
== END 2021-07-06 12:28 | disposition home or self-care (01) ==
LOC: MW.ED 05:53
DX: M54.50 Low back pain, unspecified (principal); K59.00 Constipation, unspecified; M79.671 Pain in right foot; I10 Essential (primary) hypertension; E87.1 Hypo-osmolality and hyponatremia; Z88.5 Allergy status to narcotic agent; Z79.899 Other long term (current) drug therapy
CPT/HCPCS: 36415; 72128; 72131; 73630; 74022; 74176; 80053; 81003; 85025; 96374; 96375; 96376; 99284; A9270; J0360; J1170; J1885; J7030

== ENCOUNTER 2023-05-25 11:12 | Emergency (ER) | payer SELFPAY ==
[2023-05-25] MEDS ORDERED: Adenosine 6 MG/2 ML SDV ONE (11:18)
[2023-05-25] MEDS ORDERED: Sodium Chloride 0.9% 10 ML Syringe FLUSH PRN (11:29)
[2023-05-25] MEDS ORDERED: Sodium Chloride 0.9% 2.5 ML Syringe FLUSH PRN (11:29)
[2023-05-25 11:51] LABS: BASOPHILS ABSOLUTE AUTO 0.05 K/uL (0.00-0.20); BASOPHILS PERCENT AUTO 0.6 % (0.0-1.0); EOSINOPHILS ABSOLUTE AUTO 0.17 K/uL (0.00-0.45); HEMATOCRIT 45.1 % (37.0-47.0); HEMOGLOBIN 15.9 g/dL (12.0-16.0); IMMATURE GRAN ABSOLUTE AUTO 0.03 K/uL (0.00-0.05); IMMATURE GRAN PERCENT AUTO 0.4 % (0.0-0.4); LYMPHOCYTES ABSOLUTE AUTO 3.44 K/uL (1.00-4.80); LYMPHOCYTES PERCENT AUTO 40.6 % (24.0-44.0); MEAN CORPUSCULAR HEMOGLOBIN 29.9 pg (28.0-32.0); MEAN CORPUSCULAR HGB CONC 35.3 g/dL (32.0-36.0); MEAN CORPUSCULAR VOLUME 84.9 fL (83.0-99.0); MEAN PLATELET VOLUME 10.1 fL (9.4-12.3); MONOCYTES ABSOLUTE AUTO 0.73 K/uL (0.00-0.80); MONOCYTES PERCENT AUTO 8.6 % (0.0-8.0); NEUTROPHILS ABSOLUTE AUTO 4.06 K/uL (1.80-7.70); NEUTROPHILS PERCENT AUTO 47.8 % (41.0-71.0); PLATELET COUNT,PLT 318 K/uL (150-400); RED BLOOD CELL COUNT 5.31 M/uL (4.10-5.30); WHITE BLOOD CELL COUNT,WBC 8.48 K/uL (3.9-11.3)
[2023-05-25 12:02] VITALS: BP 149/81; PULSE 206
[2023-05-25 12:18] LABS: A/G RATIO 0.9 (0.9-1.6); ALBUMIN 3.6 g/dL (3.4-5.0); BILIRUBIN TOTAL 0.4 mg/dL (0.2-1.0); CALCIUM 8.6 mg/dL (8.5-10.1); CARBON DIOXIDE,CO2 21.3 mmol/L (21.0-32.0); CREATININE 1.1 mg/dL (0.6-1.0); EST CRCL DRUG DOSING (CG) 51.55 mL/min; MAGNESIUM 2.1 mg/dL (1.8-2.4); POTASSIUM,K 4.3 mmol/L (3.5-5.1); PROTEIN TOTAL,TP 7.6 g/dL (6.4-8.2); TSH ULTRASENSITIVE 6.3 uIU/mL (0.36-3.74)
[2023-05-25] MEDS ORDERED: Adenosine 6 MG/2 ML SDV IVPUSH ONE ×2 (12:27→12:28)
[2023-05-25 12:54] LABS: T4 FREE 0.91 ng/dL (0.76-1.46)
== END 2023-05-25 13:30 | disposition left against medical advice (07) ==
LOC: MW.ED 11:12
DX: I47.10 Supraventricular tachycardia, unspecified (principal); I10 Essential (primary) hypertension; E66.9 Obesity, unspecified; Z90.49 Acquired absence of other specified parts of digestive tract; Z79.899 Other long term (current) drug therapy; Z88.5 Allergy status to narcotic agent
CPT/HCPCS: 36415; 71045; 80053; 83735; 84439; 84443; 84484; 85025; 93005; 96374; 99285; J0153; J3490; 93010; 99284

== ENCOUNTER 2024-09-22 21:08 | Emergency (ER) | payer SELFPAY ==
[2024-09-22] MEDS ORDERED: Sodium Chloride 0.9% 10 ML Syringe FLUSH PRN (21:11)
[2024-09-22] MEDS ORDERED: Sodium Chloride 0.9% 2.5 ML Syringe FLUSH PRN (21:11)
[2024-09-22] MEDS: Midazolam 5 MG/ML SDV ONE (21:21)
[2024-09-22] MEDS: fentaNYL 100 MCG/2 ML SDV ONE (21:21)
[2024-09-22] MEDS: Sodium Chloride 0.9% 1,000 ML IV ONE (21:27)
[2024-09-22] MEDS: Adenosine 6 MG/2 ML SDV IVPUSH ONE ×2 (21:43→21:45)
[2024-09-22 22:29] LABS: BASOPHILS ABSOLUTE AUTO 0.03 K/uL (0.00-0.20); BASOPHILS PERCENT AUTO 0.4 % (0.0-1.0); EOSINOPHILS ABSOLUTE AUTO 0.19 K/uL (0.00-0.45); EOSINOPHILS PERCENT AUTO 2.3 % (0.0-6.0); HEMATOCRIT 42.2 % (37.0-47.0); HEMOGLOBIN 14.6 g/dL (12.0-16.0); IMMATURE GRAN ABSOLUTE AUTO 0.04 K/uL (0.00-0.05); IMMATURE GRAN PERCENT AUTO 0.5 % (0.0-0.4); LYMPHOCYTES ABSOLUTE AUTO 1.87 K/uL (1.00-4.80); LYMPHOCYTES PERCENT AUTO 22.5 % (24.0-44.0); MEAN CORPUSCULAR HEMOGLOBIN 29.6 pg (28.0-32.0); MEAN CORPUSCULAR HGB CONC 34.6 g/dL (32.0-36.0); MEAN CORPUSCULAR VOLUME 85.4 fL (83.0-99.0); MEAN PLATELET VOLUME 9.9 fL (9.4-12.3); MONOCYTES ABSOLUTE AUTO 0.64 K/uL (0.00-0.80); MONOCYTES PERCENT AUTO 7.7 % (0.0-8.0); NEUTROPHILS ABSOLUTE AUTO 5.53 K/uL (1.80-7.70); NEUTROPHILS PERCENT AUTO 66.6 % (41.0-71.0); PLATELET COUNT,PLT 288 K/uL (150-400); RED BLOOD CELL COUNT 4.94 M/uL (4.10-5.30)
[2024-09-22 22:42] LABS: APPEARANCE,URINE CLEAR; BILIRUBIN,URINE NEGATIVE (NEGATIVE); COLOR,URINE YELLOW; GLUCOSE,URINE NEGATIVE (NEGATIVE); KETONES,URINE NEGATIVE (NEGATIVE); LEUKOCYTE ESTERASE,URINE NEGATIVE (NEGATIVE); NITRITE,URINE NEGATIVE (NEGATIVE); OCCULT BLOOD,URINE NEGATIVE (NEGATIVE); PROTEIN,URINE NEGATIVE (NEGATIVE); UROBILINOGEN,URINE 0.2 EU/dL (<2.0)
[2024-09-22 22:46] LABS: INR 0.98 (0.86-1.11)
[2024-09-22 22:48] LABS: A/G RATIO 0.8 (0.9-1.6); ALBUMIN 3.2 g/dL (3.4-5.0); BILIRUBIN TOTAL 0.3 mg/dL (0.2-1.0); CALCIUM 8.7 mg/dL (8.5-10.1); CARBON DIOXIDE,CO2 19.5 mmol/L (21.0-32.0); CREATININE 0.9 mg/dL (0.6-1.0); EST CRCL DRUG DOSING (CG) 69.47 mL/min; MAGNESIUM 1.8 mg/dL (1.8-2.4)
[2024-09-22 22:51] LABS: AMPHETAMINES SCREEN, URINE NEGATIVE (CUTOFF=500); BARBITURATE SCREEN,URINE NEGATIVE (CUTOFF=200); BENZODIAZEPINES SCREEN,URINE NEGATIVE (CUTOFF=150); BUPRENORPHINE SCREEN,URINE NEGATIVE (CUTOFF=10); METHADONE SCREEN, URINE NEGATIVE (CUTOFF=200); METHAMPHETAMINES SCREEN, URINE NEGATIVE (CUTOFF=500); OXYCODONE SCREEN,URINE NEGATIVE (CUT0FF=100); PCP SCREEN,URINE NEGATIVE (CUTOFF=25); THC SCREEN,URINE 20 NG/ML NEGATIVE (CUTOFF=50)
[2024-09-22 23:20] LABS: POTASSIUM,K 3.3 mmol/L (3.5-5.1)
[2024-09-23 05:11] VITALS: BP 143/105; PULSE 93
== END 2024-09-22 23:22 | disposition home or self-care (01) ==
LOC: MW.ED 21:08
DX: I47.10 Supraventricular tachycardia, unspecified (principal); I10 Essential (primary) hypertension; E66.9 Obesity, unspecified; Z88.5 Allergy status to narcotic agent; Z72.0 Tobacco use; Z68.41 Body mass index [BMI] 40.0-44.9, adult
CPT/HCPCS: 36415; 71045; 80053; 80305; 81003; 83690; 83735; 84484; 85025; 85610; 85730; 87428; 93005; 96361; 96374; 99285; J0153; J7030; 93010; 99284

== ENCOUNTER 2024-11-09 14:31 | Emergency (ER) | payer SELFPAY ==
[2024-11-09] MEDS ORDERED: Sodium Chloride 0.9% 10 ML Syringe FLUSH PRN (14:52)
[2024-11-09] MEDS ORDERED: Sodium Chloride 0.9% 2.5 ML Syringe FLUSH PRN (14:52)
[2024-11-09] MEDS ORDERED: Sodium Chloride 0.9% 20 ML SDV IV PRN (14:52)
[2024-11-09 15:03] LABS: BASOPHILS ABSOLUTE AUTO 0.04 K/uL (0.00-0.20); BASOPHILS PERCENT AUTO 0.4 % (0.0-1.0); EOSINOPHILS ABSOLUTE AUTO 0.14 K/uL (0.00-0.45); EOSINOPHILS PERCENT AUTO 1.3 % (0.0-6.0); HEMOGLOBIN 15.4 g/dL (12.0-16.0); IMMATURE GRAN ABSOLUTE AUTO 0.03 K/uL (0.00-0.05); IMMATURE GRAN PERCENT AUTO 0.3 % (0.0-0.4); LYMPHOCYTES ABSOLUTE AUTO 1.81 K/uL (1.00-4.80); LYMPHOCYTES PERCENT AUTO 17.4 % (24.0-44.0); MEAN CORPUSCULAR HEMOGLOBIN 29.2 pg (28.0-32.0); MEAN CORPUSCULAR HGB CONC 34.2 g/dL (32.0-36.0); MEAN CORPUSCULAR VOLUME 85.2 fL (83.0-99.0); MEAN PLATELET VOLUME 9.9 fL (9.4-12.3); MONOCYTES ABSOLUTE AUTO 0.64 K/uL (0.00-0.80); MONOCYTES PERCENT AUTO 6.1 % (0.0-8.0); NEUTROPHILS ABSOLUTE AUTO 7.76 K/uL (1.80-7.70); NEUTROPHILS PERCENT AUTO 74.5 % (41.0-71.0); PLATELET COUNT,PLT 353 K/uL (150-400); RED BLOOD CELL COUNT 5.28 M/uL (4.10-5.30); WHITE BLOOD CELL COUNT,WBC 10.42 K/uL (3.9-11.3)
[2024-11-09] MEDS: Diltiazem 25 MG/5 ML SDV IVPUSH ONE (15:24)
[2024-11-09 15:39] LABS: ALANINE AMINOTRANSFERASE,ALT 55 IU/L (14-63); ALBUMIN 3.7 g/dL (3.4-5.0); ALKALINE PHOSPHATASE 213 U/L (46-116); ASPARTATE AMNIOTRANSFERASE,AST 29 IU/L (15-37); BILIRUBIN TOTAL 0.5 mg/dL (0.2-1.0); BLOOD UREA NITROGEN,BUN 19 mg/dL (7.0-18.0); CALCIUM 8.9 mg/dL (8.5-10.1); CARBON DIOXIDE,CO2 22.8 mmol/L (21.0-32.0); CHLORIDE,CL 102 mmol/L (98-107); CREATININE 0.9 mg/dL (0.6-1.0); ETHANOL BLOOD MEDICAL <3 mg/dL; GLUCOSE RANDOM 139 mg/dL (74-106); MAGNESIUM 1.9 mg/dL (1.8-2.4); PROTEIN TOTAL,TP 7.3 g/dL (6.4-8.2); SODIUM,NA 138 mmol/L (136-145); TSH ULTRASENSITIVE 3.74 uIU/mL (0.36-3.74)
[2024-11-09 15:40] LABS: ESTIMATED GFR 73 mL/min (>60)
[2024-11-09] MEDS: Diltiazem IR 30 MG Tab PO ONE (15:45)
[2024-11-09 15:48] VITALS: BP 138/69; PULSE 136
== END 2024-11-09 16:53 | disposition left against medical advice (07) ==
LOC: MW.ED 14:31
DX: I48.91 Unspecified atrial fibrillation (principal); I47.10 Supraventricular tachycardia, unspecified; M19.90 Unspecified osteoarthritis, unspecified site; I10 Essential (primary) hypertension; E66.9 Obesity, unspecified; Z88.8 Allergy status to other drugs, medicaments and biological substances; Z90.49 Acquired absence of other specified parts of digestive tract
CPT/HCPCS: 36415; 71045; 73562; 80053; 80307; 83735; 84443; 84484; 85025; 93005; 96374; 99285; A9270; J3490; 93010; 99284